=== PATIENT | female | born 1970 | race Caucasian/White ===

== ENCOUNTER 2017-07-22 21:37 | Emergency (ER) | payer OTHER ==
[2017-07-22 22:15] VITALS: BP 120/88
[2017-07-22] MEDS ORDERED: Sodium Chloride 0.9% 10 ML Syringe FLUSH PRN (22:50)
--- NOTE | 2017-07-22 22:53 | EDM.PDOC ---
ED HPI GENERAL MEDICAL PROBLEM - General Chief Complaint: Gastrointestinal Problem Stated Complaint: BLOATING / ABDOMINAL PAIN Time Seen by Provider: 07/22/17 22:32 Source of Information: Reports: Patient, Family, RN Notes Reviewed History Limitations: Reports: No Limitations - History of Present Illness INITIAL COMMENTS - FREE TEXT/NARRATIVE: 46-year-old female known history of gastric bypass presents emergency department today with abdominal distention, she states over the last 2 weeks she 's been progressively more distended she recently had a colonoscopy 2 weeks ago , not much for nausea not much for pain just discomfort, states she still having regular bowel movements and passing gas Left Upper Abdomen Pain Score (Numeric/FACES): 4 - Related Data Allergies Allergy/AdvReac Type Severity Reaction Status Date / Time tioconazole [From Monistat 1] Allergy Rash Verified 10/21/14 09:41 hydromorphone HCl AdvReac Nausea Verified 10/21/14 09:41 [From Dilaudid] Home Meds: Home Meds Docusate Sodium [Colace] 1 tab PO BID 04/25/13 [History] Sennosides [Senna] 4 tab PO BID 04/25/13 [History] Vitamin B Complex [B Complex] 1 each PO BID 04/25/13 [History] Bisacodyl [Dulcolax] 3 tab PO BEDTIME 01/25/14 [History] Cholecalciferol (Vitamin D3) [Vitamin D3] 5,000 unit PO DAILY 01/25/14 [History] Cyanocobalamin (Vitamin B-12) [B-12] 2,500 mcg SL BID 01/25/14 [History] Gabapentin [Neurontin] 600 mg PO BID 01/25/14 [History] Multivitamin [Chewable Multi Vitamin] 2 tab CHEW DAILY 10/21/14 [History] Citalopram [Citalopram HBr] 20 mg PO DAILY 07/22/17 [History] Levocetirizine Dihydrochloride 5 mg PO DAILY 07/22/17 [History] Montelukast Sodium 10 mg PO DAILY 07/22/17 [History] Norethindrone-Ethinyl Estrad [Nortrel 1-35 28 Tablet] 07/22/17 [History] Norethindrone-Ethinyl Estrad [Nortrel 1-35 28 Tablet] 07/22/17 [History] Norethindrone-Ethinyl Estrad [Nortrel 1-35 28 Tablet] 07/22/17 [History] Norethindrone-Ethinyl Estrad [Nortrel 1-35 28 Tablet] PO DAILY 07/22/17 [History ] Past Medical History Gastrointestinal History: Reports: Bowel Obstruction [employer] IN[employer] History: Reports: Musculoskeletal History: Reports: Osteoarthritis Other Musculoskeletal History: arthritis in shoulders - Past Surgical History GI Surgical History: Reports: Bariatric Procedure, Cholecystectomy, Colonoscopy , Hernia Repair/Other, Lysis of Adhesions, Small Bowel Female Surgical History: Reports: Section Musculoskeletal Surgical History: Reports: Shoulder Surgery, Other (See Below) Other Musculoskeletal Surgeries/Procedures:: shoulder bone spurs Social & Family History - Tobacco Use Smoking Status *Q: Former Smoker Used Tobacco, but Quit: Yes Month/Year Tobacco Last Used: 7 years - Caffeine Use Caffeine Use: Reports: Coffee - Recreational Drug Use Recreational Drug Use: No ED ROS GENERAL - Review of Systems Review Of Systems: See Below Constitutional: Denies: Fever, Chills HEENT: Reports: No Symptoms Respiratory: Reports: No Symptoms Cardiovascular: Reports: No Symptoms GI/Abdominal: Reports: Abdominal Pain, Distension, Flatus. Denies: Diarrhea, Nausea, Vomiting : Reports: No Symptoms Musculoskeletal: Reports: No Symptoms Skin: Reports: No Symptoms Neurological: Reports: No Symptoms ED EXAM, GI/ABD - Physical Exam Exam: See Below Exam Limited By: No Limitations General Appearance: Alert, WD/WN, No Apparent Distress Ears: Other (Right tympanic membrane erythematous loss of landmarks and light reflex) Neck: Normal Inspection, Supple, Non-Tender, Full Range of Motion Respiratory/Chest: No Respiratory Distress, Lungs Clear, Normal Breath Sounds, No Accessory Muscle Use Cardiovascular: Regular Rate, Rhythm, No Murmur GI/Abdominal Exam: Normal Bowel Sounds, Soft, Distended Course - Vital Signs Last Recorded V/S: Last Vital Signs Temp 98.1 F 07/22/17 22:14 Pulse 88 07/22/17 22:14 Resp 14 07/22/17 22:14 BP 120/88 07/22/17 22:14 Pulse Ox 99 07/22/17 22:14 - Orders/Labs/Meds Orders: Active Orders 24 hr Category Date Time Status Peripheral IV Care [RC] . DIRECTED Care 07/22/17 22:50 Active Abdomen Pelvis w Cont [CT] Urgent Exams 07/22/17 22:50 Taken HCG QUALITATIVE,URINE [URCHEM] Routine Lab 07/22/17 23:04 Ordered UA W/MICROSCOPIC [URIN] Urgent Lab 07/22/17 23:04 Ordered Lactated Ringers [Ringers, Lactated] 1,000 ml Med 07/22/17 23:00 Active IV ASDIRECTED Sodium Chloride 0.9% [Saline Flush] Med 07/22/17 22:50 Active 10 ml FLUSH ASDIRECTED PRN Peripheral IV Insertion Adult [OM.PC] Urgent Oth 07/22/17 22:50 Ordered Medication Orders Lactated Ringer's (Ringers, Lactated) 1,000 mls @ 500 mls/hr IV ASDIRECTED NAVA Last Admin: 07/22/17 23:04 Dose: 500 mls/hr Sodium Chloride (Saline Flush) 10 ml FLUSH ASDIRECTED PRN PRN Reason: Keep Vein Open Last Admin: 07/22/17 23:05 Dose: 10 ml Labs: Laboratory Tests 07/22/17 07/22/17 07/22/17 Range/Units 23:03 23:03 23:03 WBC 10.3 (4.5-11.0) K/uL RBC 4.45 (3.30-5.50) M/uL Hgb 12.4 (12.0-15.0) g/dL Hct 37.6 (36.0-48.0) % MCV 85 (80-98) fL MCH 28 (27-31) pg MCHC 33 (32-36) % Plt Count 299 (150-400) K/uL Neut % (Auto) 67 H (36-66) % Lymph % (Auto) 24 (24-44) % Page % (Auto) 6 (2-6) % Eos % (Auto) 3 (2-4) % Baso % (Auto) 0 (0-1) % Sodium 143 (140-148) mmol/L Potassium 3.4 L (3.6-5.2) mmol/L Chloride 108 (100-108) mmol/L Carbon Dioxide 26 (21-32) mmol/L Anion Gap 12.4 (5.0-14.0) mmol/L BUN 9 D (7-18) mg/dL Creatinine 0.7 (0.6-1.0) mg/dL Est Cr Clr Drug Dosing 92.29 mL/min Estimated GFR (MDRD) > 60 (>60) Glucose 82 (74-106) mg/dL Lactic Acid 0.8 (0.4-2.0) mmol/L Calcium 8.0 L (8.5-10.1) mg/dL Total Bilirubin 0.2 (0.2-1.0) mg/dL AST 16 (15-37) U/L ALT 31 (12-78) U/L Alkaline Phosphatase 77 (46-116) U/L Total Protein 6.0 L (6.4-8.2) g/dL Albumin 3.2 L (3.4-5.0) g/dL Globulin 2.8 (2.3-3.5) g/dL Albumin/Globulin Ratio 1.1 L (1.2-2.2) Lipase 134 (73-393) U/L Urine Color Urine Appearance Urine pH (4.5-8.0) Ur Specific [place] (1.008-1.030) Urine Protein (NEGATIVE) mg/dL Urine Glucose (UA) (NEGATIVE) mg/dL Urine Ketones (NEGATIVE) mg/dL Urine Occult Blood (NEGATIVE) Urine Nitrite (NEGATIVE) Urine Bilirubin (NEGATIVE) Urine Urobilinogen (NORMAL) mg/dL Ur Leukocyte Esterase (NEGATIVE) Urine RBC (0-5) Urine WBC (0-5) Ur Epithelial Cells Amorphous Sediment Urine Bacteria Urine Mucus Urine Other Urine HCG, Qual 07/22/17 07/22/17 Range/Units 23:04 23:04 WBC (4.5-11.0) K/uL RBC (3.30-5.50) M/uL Hgb (12.0-15.0) g/dL Hct (36.0-48.0) % MCV (80-98) fL MCH (27-31) pg MCHC (32-36) % Plt Count (150-400) K/uL Neut % (Auto) (36-66) % Lymph % (Auto) (24-44) % Page % (Auto) (2-6) % Eos % (Auto) (2-4) % Baso % (Auto) (0-1) % Sodium (140-148) mmol/L Potassium (3.6-5.2) mmol/L Chloride (100-108) mmol/L Carbon Dioxide (21-32) mmol/L Anion Gap (5.0-14.0) mmol/L BUN (7-18) mg/dL Creatinine (0.6-1.0) mg/dL Est Cr Clr Drug Dosing mL/min Estimated GFR (MDRD) (>60) Glucose (74-106) mg/dL Lactic Acid (0.4-2.0) mmol/L Calcium (8.5-10.1) mg/dL Total Bilirubin (0.2-1.0) mg/dL AST (15-37) U/L ALT (12-78) U/L Alkaline Phosphatase (46-116) U/L Total Protein (6.4-8.2) g/dL Albumin (3.4-5.0) g/dL Globulin (2.3-3.5) g/dL Albumin/Globulin Ratio (1.2-2.2) Lipase (73-393) U/L Urine Color Yellow Urine Appearance Clear Urine pH 6.0 (4.5-8.0) Ur Specific [place] 1.020 (1.008-1.030) Urine Protein Negative (NEGATIVE) mg/dL Urine Glucose (UA) Normal (NEGATIVE) mg/dL Urine Ketones Negative (NEGATIVE) mg/dL Urine Occult Blood Negative (NEGATIVE) Urine Nitrite Negative (NEGATIVE) Urine Bilirubin Negative (NEGATIVE) Urine Urobilinogen Normal (NORMAL) mg/dL Ur Leukocyte Esterase Negative (NEGATIVE) Urine RBC 0-5 (0-5) Urine WBC 0-5 (0-5) Ur Epithelial Cells Few Amorphous Sediment Not seen Urine Bacteria Few Urine Mucus Not seen Urine Other Urine HCG, Qual Negative Meds: Medications Generic Name Dose Route Start Last Admin Trade Name Freq PRN Reason Stop Dose Admin Lactated Ringer's 1,000 mls @ 500 mls/hr 07/22/17 23:00 07/22/17 23:04 Ringers, Lactated IV 500 mls/hr ASDIRECTED NAVA Administration Sodium Chloride 10 ml 07/22/17 22:50 07/22/17 23:05 Saline Flush FLUSH 10 ml ASDIRECTED PRN Administration Keep Vein Open Discontinued Medications Generic Name Dose Route Start Last Admin Trade Name Freq PRN Reason Stop Dose Admin Fentanyl 50 mcg 07/22/17 23:19 07/22/17 23:28 Sublimaze IVPUSH 07/22/17 23:20 50 mcg ONETIME ONE Administration Sodium Chloride 74 mls @ 3.4 mls/sec 07/22/17 22:59 07/22/17 23:35 Normal Saline IV 07/22/17 23:00 3.4 mls/sec ASDIRECTED STA Administration Iopamidol 100 ml 07/22/17 22:59 07/22/17 23:35 Isovue-300 (61%) IV 07/22/17 23:00 100 ml . DIRECTED STA Administration Departure - Departure Time of Disposition: 00:38 Disposition: Home, Self-Care 01 Condition: Good Clinical Impression: Functional constipation Left otitis media Qualifiers: Otitis media type: suppurative Chronicity: acute Recurrence: not specified as recurrent Spontaneous tympanic membrane rupture: without spontaneous rupture Qualified Code(s): H66.002 - Acute suppurative otitis media without spontaneous rupture of ear drum, left ear - Discharge Information Referrals: PCP,None [Primary Care Provider] - Forms: ED Department Discharge Additional Instructions: Take full course of antibiotics, try the MiraLAX prep for a cleanout for constipation, Please followup with your primary care provider in 5-7 days if not better, please call return to the emergency department with worsening of symptoms. - My Orders Last 24 Hours: My Active Orders 07/22/17 22:50 Peripheral IV Care [RC] . DIRECTED Abdomen Pelvis w Cont [CT] Urgent Sodium Chloride 0.9% [Saline Flush] 10 ml FLUSH ASDIRECTED PRN Peripheral IV Insertion Adult [OM.PC] Urgent 07/22/17 23:00 Lactated Ringers [Ringers, Lactated] 1,000 ml IV ASDIRECTED 07/22/17 23:04 HCG QUALITATIVE,URINE [URCHEM] Routine UA W/MICROSCOPIC [URIN] Urgent - Assessment/Plan Last 24 Hours: My Active Orders 07/22/17 22:50 Peripheral IV Care [RC] . DIRECTED Abdomen Pelvis w Cont [CT] Urgent Sodium Chloride 0.9% [Saline Flush] 10 ml FLUSH ASDIRECTED PRN Peripheral IV Insertion Adult [OM.PC] Urgent 07/22/17 23:00 Lactated Ringers [Ringers, Lactated] 1,000 ml IV ASDIRECTED 07/22/17 23:04 HCG QUALITATIVE,URINE [URCHEM] Routine UA W/MICROSCOPIC [URIN] Urgent Plan: Assessment Acuity = acute Site and laterality = functional constipation with left otitis media complicated patient with history of gastric bypass surgery Etiology = slow transit time and probable bacterial cause for the otitis media Manifestations = otalgia, abdominal distention Location of injury = Home Lab values = CBC, CMP, urinalysis unremarkable CT scan shows moderate amount of stool Plan Placed on amoxicillin 500 mg by mouth 3 times a day 7 days follow-up with primary care in 5-7 days if not better, for the constipation handout on colonoscopy prep with MiraLAX was provided This note was dictated using [employer] voice recognition software please call with any questions on syntax or grammar.
[2017-07-22] MEDS ORDERED: Iopamidol 612 MG/ML 100 ML Bottle IV STA (22:59)
[2017-07-22] MEDS ORDERED: Lactated Ringers 1,000 ML IV SCH (23:00)
[2017-07-22] MEDS ORDERED: fentaNYL 100 MCG/2 ML SDV IVPUSH ONE (23:19)
== END 2017-07-23 00:50 | disposition home or self-care (01) ==
LOC: JP.ED 21:37
DX: K59.04 Chronic idiopathic constipation (principal); H66.002 Acute suppurative otitis media without spontaneous rupture of ear drum, left ear; Z88.8 Allergy status to other drugs, medicaments and biological substances; Z79.899 Other long term (current) drug therapy; Z87.891 Personal history of nicotine dependence
CPT/HCPCS: 36415; 74177; 80053; 81001; 81025; 83605; 83690; 85025; 96361; 96374; 99284; J3010; J7030; J7050; J7120; Q9967

== ENCOUNTER 2017-07-23 14:08 | Inpatient (IN) | payer OTHER ==
[2017-07-23] MEDS ORDERED: Ondansetron 4 MG Tab.DIS PO ONE (14:52)
[2017-07-23] MEDS ORDERED: Acetaminophen 325 MG Tab PO PRN (16:11)
[2017-07-23] MEDS ORDERED: Acetaminophen 650 MG Supp RECTAL PRN (16:11)
--- NOTE | 2017-07-23 17:31 | PCM.HP ---
H&P History of Present Illness - General Date of Service: 07/23/17 Admit Problem/Dx: Admission Diagnosis/Problem Admission Diagnosis/Problem Partial bowel obstruction Source of Information: Patient History Limitations: Reports: No Limitations - History of Present Illness Initial Comments - Free Text/Narative: Geovanni states that she last had a BM 8 days ago. She is having an increase in abdominal pain and bloating. Pain is worst after eating. She went to the ED last night and CT Scan was negative. Onset of Symptoms: Reports: Gradual Duration of Symptoms: Reports: Week(s): (1) Quality: Reports: Ache, Pressure, Throbbing Improves with: Reports: None Worsens with: Reports: Eating Context: Reports: Sick Contact Abdomen Pain Score (Numeric/FACES): 5 - Related Data Allergies/Adverse Reactions: Allergies Allergy/AdvReac Type Severity Reaction Status Date / Time tioconazole [From Monistat 1] Allergy Rash Verified 10/21/14 09:41 hydromorphone HCl AdvReac Nausea Verified 10/21/14 09:41 [From Dilaudid] Home Medications: Home Meds Docusate Sodium [Colace] 1 tab PO BID 04/25/13 [History] Sennosides [Senna] 4 tab PO BID 04/25/13 [History] Vitamin B Complex [B Complex] 1 each PO BID 04/25/13 [History] Bisacodyl [Dulcolax] 3 tab PO BEDTIME 01/25/14 [History] Cholecalciferol (Vitamin D3) [Vitamin D3] 5,000 unit PO DAILY 01/25/14 [History] Cyanocobalamin (Vitamin B-12) [B-12] 2,500 mcg SL BID 01/25/14 [History] Gabapentin [Neurontin] 600 mg PO BID 01/25/14 [History] Multivitamin [Chewable Multi Vitamin] 2 tab CHEW DAILY 10/21/14 [History] Citalopram [Citalopram HBr] 20 mg PO DAILY 07/22/17 [History] Levocetirizine Dihydrochloride 5 mg PO DAILY 07/22/17 [History] Montelukast Sodium 10 mg PO DAILY 07/22/17 [History] Norethindrone-Ethinyl Estrad [Nortrel 1-35 28 Tablet] 07/22/17 [History] Norethindrone-Ethinyl Estrad [Nortrel 1-35 28 Tablet] 07/22/17 [History] Norethindrone-Ethinyl Estrad [Nortrel 1-35 28 Tablet] 07/22/17 [History] Norethindrone-Ethinyl Estrad [Nortrel 1-35 28 Tablet] PO DAILY 07/22/17 [History ] Past Medical History Gastrointestinal History: Reports: Bowel 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: Musculoskeletal History: Reports: Osteoarthritis Other Musculoskeletal History: arthritis in shoulders - Past Surgical History GI Surgical History: Reports: Bariatric Procedure, Cholecystectomy, Colonoscopy , Hernia Repair/Other, Lysis of Adhesions, Small Bowel Female Surgical History: Reports: Section Musculoskeletal Surgical History: Reports: Shoulder Surgery, Other (See Below) Other Musculoskeletal Surgeries/Procedures:: shoulder bone spurs Social & Family History - Tobacco Use Smoking Status *Q: Former Smoker Years of Tobacco use: 20 Packs/Tins Daily: 0.5 Used Tobacco, but Quit: No Second Hand Smoke Exposure: No - Caffeine Use Caffeine Use: Reports: Coffee - Recreational Drug Use Recreational Drug Use: No H&P Review of Systems - Review of Systems: Review Of Systems: See Below General: Reports: No Symptoms HEENT: Reports: No Symptoms Pulmonary: Reports: No Symptoms Cardiovascular: Reports: No Symptoms Gastrointestinal: Reports: Abdominal Pain, Constipation, Distension, Nausea Genitourinary: Reports: No Symptoms Musculoskeletal: Reports: No Symptoms Skin: Reports: No Symptoms Psychiatric: Reports: No Symptoms Neurological: Reports: No Symptoms Hematologic/Lymphatic: Reports: No Symptoms Immunologic: Reports: No Symptoms Exam - Exam Exam: See Below - Vital Signs Vital Signs: Last Vital Signs Temp 98.2 F 07/23/17 14:16 Pulse 78 07/23/17 14:16 Resp 16 07/23/17 14:16 BP 119/65 07/23/17 14:16 Pulse Ox Weight: 158 lb 8 oz - Exam Quality Assessment: DVT Prophylaxis General: Alert, Oriented, Moderate Distress HEENT: PERRLA Neck: Supple, Trachea Midline Lungs: Clear to Auscultation, Normal Respiratory Effort Cardiovascular: Regular Rate, Regular Rhythm GI/Abdominal Exam: Soft, Distended, Tender (Female) Exam: Deferred Rectal (Female) Exam: Deferred Back Exam: Normal Inspection, Full Range of Motion Extremities: Normal Inspection, Normal Range of Motion Skin: Warm, Dry, Intact Neurological: Cranial Nerves Intact, Reflexes Equal Bilateral Neuro Extensive - Mental Status: Alert, Oriented x3, Normal Mood/Affect Neuro Extensive - Motor, Sensory, Reflexes: CN II-XII Intact, Normal Reflexes Psychiatric: Alert, Normal Affect, Normal Mood - Problem List (1) Partial small bowel obstruction SNOMED Code(s): 427668522 ICD Code: K56.600 - PARTIAL INTESTINAL OBSTRUCTION, UNSPECIFIED TO CAUSE Status: Acute Current Visit: Yes (2) Functional constipation SNOMED Code(s): 517656887 ICD Code: K59.04 - CHRONIC IDIOPATHIC CONSTIPATION Status: Acute Current Visit: No Problem List Initiated/Reviewed/Updated: Yes Orders Last 24hrs: Active Orders 24 hr Category Date Time Status Admission Status [Patient Status] [ADT] Routine ADT 07/23/17 15:30 Active Enema [RC] ASDIRECTED Care 07/23/17 14:17 Inactive Up ad Gisselle [RC] ASDIRECTED Care 07/23/17 17:14 Active Vital Signs [RC] Q4H Care 07/23/17 17:19 Active Clear Liquid Diet [DIET] Diet 07/23/17 Dinner Active NPO After Midnight [Nothing per Oral After Midnight Diet 07/23/17 Dinner Ordered Diet] [DIET] UGI w Small Bowel wo Air [CR] Routine Exams 07/24/17 09:00 Ordered CBC W/O DIFF,HEMOGRAM [HEME] Routine Lab 07/24/17 04:00 Ordered COMPREHENSIVE METABOLIC PN,CMP [CHEM] Routine Lab 07/24/17 04:00 Ordered FERRITIN [CHEM] Routine Lab 07/24/17 04:00 Ordered MAGNESIUM [CHEM] Routine Lab 07/24/17 04:00 Ordered PHOSPHORUS [CHEM] Routine Lab 07/24/17 04:00 Ordered Acetaminophen [Tylenol] Med 07/23/17 16:11 Active 650 mg PO Q4H PRN Acetaminophen [Tylenol] Med 07/23/17 16:11 Active 650 mg RECTAL Q4H PRN Dextrose 5%-Lactated Ringers 1,000 ml Med 07/23/17 16:15 Active IV ASDIRECTED MVI, Adult with Vitamin K [Infuvite Adult] 10 ml Med 07/23/17 17:30 Ordered Thiamine [Vitamin B-1] 100 mg Magnesium Sulfate [Magnesium Sulfate 50%] 2 gm Folic Acid 1 mg Lactated Ringers [Ringers, Lactated] 1,000 ml IV ONETIME Metoclopramide [Reglan] Med 07/23/17 17:30 Ordered 10 mg IV Q6H Ondansetron [Zofran] Med 07/23/17 16:16 Active 4 mg IVPUSH Q4H PRN Pantoprazole [ProTONIX IV] Med 07/23/17 17:00 Active 40 mg IV Q24H hydrOXYzine HCl [Vistaril] Med 07/23/17 17:21 Ordered 50 - 100 mg IM Q4H PRN SCD [Sequential Compression Device] [OM.PC] Routine Oth 07/23/17 17:21 Ordered Code Status [Resuscitation Status] Routine Resus Stat 07/23/17 17:12 Ordered Medication Orders Acetaminophen (Tylenol) 650 mg PO Q4H PRN PRN Reason: PAIN/FEVER Acetaminophen (Tylenol) 650 mg RECTAL Q4H PRN PRN Reason: PAIN/FEVER Hydroxyzine HCl (Vistaril) 50 - 100 mg IM Q4H PRN PRN Reason: Pain Dextrose/Lactated Ringer's (Dextrose 5%-Lactated Ringers) 1,000 mls @ 150 mls/ hr IV ASDIRECTED NAVA Multivitamins/Minerals 10 ml/Thiamine HCl 100 mg/ Magnesium Sulfate 2 gm/ Folic Acid 1 mg / Lactated Ringer's 1,015.2 mls @ 200 mls/hr IV ONETIME NAVA Stop: 07/23/17 22:35 Metoclopramide HCl (Reglan) 10 mg IV Q6H NAVA Ondansetron HCl (Zofran) 4 mg IVPUSH Q4H PRN PRN Reason: NAUSEA Pantoprazole Sodium (Protonix Iv) 40 mg IV Q24H [facility] Assessment/Plan Comment:: See copy of orders Sarah Gagnon 07/23/16 Admit to Inpatient for hospital stay of 2 nights and 3 days
[2017-07-23] MEDS ORDERED: MVI, Adult with Vitamin K 10 ML, Thiamine 100 MG, Magnesium Sulfate 2 GM, Folic Acid 1 ... IV ONE ×5 (18:00)
[2017-07-23] MEDS: Pantoprazole 40 MG Vial IV SCH (18:03)
[2017-07-23] MEDS: Metoclopramide 10 MG/2 ML SDV IV SCH (18:03)
[2017-07-23] MEDS: hydrOXYzine HCl 100 MG/2 ML SDV IM PRN (22:11)
[2017-07-23] MEDS: Dextrose 5%-Lactated Ringers 1,000 ML IV SCH (23:15)
[2017-07-24] MEDS: Metoclopramide 10 MG/2 ML SDV IV SCH ×4 (00:03→17:01)
[2017-07-24] MEDS: Dextrose 5%-Lactated Ringers 1,000 ML IV SCH ×3 (06:04→21:15)
[2017-07-24] MEDS ORDERED: Iohexol 647 MG/ML 50 ML SDV PO ONE ×2 (08:57→09:29)
--- NOTE | 2017-07-24 08:59 | PN ---
DATE OF SERVICE: 07/24/2017 SUBJECTIVE: Geovanni was admitted yesterday for abdominal distention and pain. Pain is a 5/10. She has had no bowel movement or has not passed any flatus. She is scheduled for an upper GI with small-bowel follow-through using water-soluble contrast this morning. REVIEW OF SYSTEMS: CONSTITUTIONAL: No fever, chills, night sweats, or fatigue. HEENT: Negative. NECK: Negative. HEART: No chest pain or shortness of breath. LUNGS: She does have a cough from upper respiratory infection. ABDOMEN: As above. : Negative. EXTREMITIES: Negative. NEURO: Negative for headache, dizziness, or loss of coordination. PSYCHIATRIC: Negative for depression or anxiety. Remainder of review of systems negative for any pertinent positives and negatives. OBJECTIVE: GENERAL: Geovanni Zaragoza is a 46-year-old female. Alert and orientated. VITAL SIGNS: TPR 98.4, 64, 18, and blood pressure 120/64. HEENT: Negative. NECK: Supple. HEART: Regular rate and rhythm. LUNGS: Clear. ABDOMEN: Remains to be distended. Tenderness in all 4 quadrants. EXTREMITIES: Without peripheral edema. NEURO: Intact. ASSESSMENT: Partial small bowel obstruction. PLAN: 1. Page Preston Russ MD, after upper GI with water-soluble contrast is completed. 2. We will evaluate p.r.n. or in a.m. Sarah Bailey PA-C /[id number]
[2017-07-24] MEDS: Amoxicillin 500 MG Cap PO SCH ×4 (11:18→21:16)
--- NOTE | 2017-07-24 11:49 | CR ---
UGI w Small Bowel wo Air INDICATION: partial small bowel obstruction COMPARISON: CT 07/22/2017 FINDINGS: Upper GI and small bowel series performed using water-soluble contrast. Patient status pos t gastric bypass procedure. Contrast reaches the cecum in 15 minutes. No abnormal dilatation. Small b owel mucosal fold pattern unremarkable. No evidence of wall thickening or bowel loop separation. Exam was continued through 2 hours to ensure additional passage of contrast into the colon, which was obs erved to the transverse colon. Amorphus contrast in the left upper quadrant likely reflux into the ex cluded stomach, which is fluid-filled and somewhat distended on CT 07/22/2017. IMPRESSION: No signs of small bowel obstruction. Probable reflux into excluded stomach. Discussed with Dr. Russ.
[2017-07-24] MEDS: Pantoprazole 40 MG Vial IV SCH (17:00)
[2017-07-24] MEDS: Dicyclomine 10 MG Cap PO SCH ×2 (17:00→21:15)
[2017-07-24] MEDS: Bisacodyl 10 MG Supp RECTAL SCH (21:16)
[2017-07-25] MEDS: Metoclopramide 10 MG/2 ML SDV IV SCH ×4 (00:37→18:44)
[2017-07-25] MEDS: Dextrose 5%-Lactated Ringers 1,000 ML IV SCH ×3 (04:13→18:54)
[2017-07-25] MEDS ORDERED: Acetaminophen 500 MG Tab PO ONE (06:45)
[2017-07-25] MEDS ORDERED: Gabapentin 300 MG Cap PO ONE (06:45)
[2017-07-25] MEDS ORDERED: Celecoxib 200 MG Cap PO ONE (06:45)
[2017-07-25] MEDS ORDERED: Naloxone 0.4 MG/ML SDV IV PRN (07:31)
[2017-07-25] MEDS: Dicyclomine 10 MG Cap PO SCH ×4 (08:16→19:41)
[2017-07-25] MEDS: Amoxicillin 500 MG Cap PO SCH ×3 (09:26→21:44)
[2017-07-25] MEDS: Bisacodyl 10 MG Supp RECTAL SCH ×2 (09:31→21:44)
[2017-07-25] MEDS ORDERED: Ketamine 500 MG/5 ML MDV IV SCH (11:00)
[2017-07-25] MEDS ORDERED: cefOXitin 2 GM in Sodium Chloride 0.9% 50 ML IV ONE (11:00)
[2017-07-25] MEDS ORDERED: Lidocaine 0.4%/D5W 2 GM/500 ML BAG IV SCH (11:00)
[2017-07-25] MEDS ORDERED: Lidocaine 2% 100 MG/5 ML Syringe IVPUSH ONE (11:00)
[2017-07-25] MEDS ORDERED: Ropivacaine 35 ML, Dexamethasone 8 MG, EPINEPHrine 0.4 MG, Sodium Chloride 0.9% 42.6 ML NERVRT SCH ×4 (11:00)
[2017-07-25] MEDS ORDERED: Meropenem 500 MG SDV ONE (12:07)
[2017-07-25] MEDS ORDERED: Bupivacaine 0.5%/EPINEPHrine 1:200,000 50 ML MDV ONE (12:07)
[2017-07-25] MEDS ORDERED: Midazolam 1 MG/ML 2 ML SDV ONE (13:09)
[2017-07-25] MEDS ORDERED: fentaNYL 250 MCG/5 ML SDV ONE (13:09)
[2017-07-25] MEDS ORDERED: Dexamethasone 4 MG/ML SDV ONE (13:10)
[2017-07-25] MEDS ORDERED: Propofol 200 MG/20 ML SDV ONE (13:10)
[2017-07-25] MEDS ORDERED: Neostigmine Methylsulfate 1 MG/ML 5 ML Syringe ONE (13:10)
[2017-07-25] MEDS ORDERED: Succinylcholine 200 MG/10 ML MDV ONE (13:10)
[2017-07-25] MEDS ORDERED: Glycopyrrolate 0.2 MG/ML 5 ML MDV ONE (13:10)
[2017-07-25] MEDS ORDERED: Ondansetron 4 MG/2 ML SDV ONE (13:10)
[2017-07-25] MEDS ORDERED: Rocuronium 50 MG/5 ML Vial ONE (13:10)
--- NOTE | 2017-07-25 13:24 | PN ---
DATE OF SERVICE: 07/25/2017 SUBJECTIVE: Geovanni is n.p.o. She will be having surgery. Case to follow later today. She remains to have pain on a pain scale of 1-10, 5/10. Vital signs have been stable. REVIEW OF SYSTEMS: Remainder of review of systems negative for any pertinent positives and negatives. OBJECTIVE: GENERAL: Geovanni Zaragoza is a 46-year-old female. She is alert and orientated, color pale. VITAL SIGNS: TPR 97.8, 66, 16, blood pressure 99/57. HEENT: Negative. NECK: Supple. HEART: Regular rate and rhythm. LUNGS: Clear. ABDOMEN: Remains to have marked distention. It is soft, generalized tenderness. EXTREMITIES: Without peripheral edema. SCDs have been on. ASSESSMENT: Partial small bowel obstruction. PLAN: 1. Orders to be written postoperatively. 2. Rx Amitiza 24 mcg b.i.d. will be ordered to start after OR. Sarah Bailey PA-C /[id number]
[2017-07-25] MEDS ORDERED: Lactated Ringers 1,000 ML ONE (15:23)
[2017-07-25] MEDS: Morphine PF 150 MG/30 ML PCA Syringe IV PRN (15:34)
[2017-07-25] MEDS ORDERED: Lubiprostone 24 MCG Cap PO SCH (17:00)
[2017-07-25] MEDS ORDERED: Scopolamine 1.5 MG Transdermal Patch ONE (17:54)
[2017-07-25] MEDS: Pantoprazole 40 MG Vial IV SCH (18:10)
[2017-07-25] MEDS ORDERED: diphenhydrAMINE 50 MG/ML SDV IVPUSH PRN (18:42)
[2017-07-25] MEDS ORDERED: Labetalol 20 MG/4 ML Syringe IVPUSH PRN (18:46)
[2017-07-25] MEDS: cefOXitin 2 GM in Sodium Chloride 0.9% 50 ML IV SCH (19:39)
[2017-07-25] MEDS ORDERED: Gabapentin 250 MG/5 ML Solution ML 470 ML Bottle PO SCH (21:00)
[2017-07-25] MEDS: Ondansetron 4 MG/2 ML SDV IVPUSH PRN (22:27)
[2017-07-25] MEDS: hydrOXYzine HCl 100 MG/2 ML SDV IM PRN (22:37)
[2017-07-25] MEDS ORDERED: Acetaminophen Soln 650 MG/20.3 ML UD Cup PO PRN (22:40)
[2017-07-25] MEDS: Montelukast 10 MG Tab PO SCH (22:46)
[2017-07-26] MEDS: Metoclopramide 10 MG/2 ML SDV IV SCH ×2 (00:18→06:08)
[2017-07-26] MEDS: cefOXitin 2 GM in Sodium Chloride 0.9% 50 ML IV SCH ×4 (00:23→19:22)
[2017-07-26] MEDS: Dextrose 5%-Lactated Ringers 1,000 ML IV SCH ×2 (00:29→07:22)
[2017-07-26] MEDS ORDERED: Iohexol 647 MG/ML 50 ML SDV PO PRN (01:02)
[2017-07-26] MEDS ORDERED: hydrOXYzine HCl 100 MG/2 ML SDV IM PRN (07:08)
[2017-07-26] MEDS: Ondansetron 4 MG/2 ML SDV IVPUSH PRN (07:22)
[2017-07-26] MEDS ORDERED: Albuterol/Ipratropium 3.0-0.5 MG/3 ML Neb Soln INH PRN (08:00)
[2017-07-26] MEDS: Celecoxib 200 MG Cap PO SCH (08:54)
[2017-07-26] MEDS: Acetaminophen Soln 650 MG/20.3 ML UD Cup PO SCH ×2 (08:55→13:40)
[2017-07-26] MEDS: Lubiprostone 24 MCG Cap PO SCH ×2 (08:56→16:00)
[2017-07-26] MEDS: SCOPOLAMINE PATCH CHECK TOP SCH (08:57)
[2017-07-26] MEDS ORDERED: Gabapentin 250 MG/5 ML Solution ML 470 ML Bottle PO SCH (09:00)
[2017-07-26] MEDS: Albuterol/Ipratropium 3.0-0.5 MG/3 ML Neb Soln INH SCH ×4 (09:53→21:33)
[2017-07-26] MEDS: Citalopram 20 MG Tab PO SCH (10:19)
[2017-07-26] MEDS: Gabapentin 300 MG Cap PO SCH ×2 (10:19→21:31)
[2017-07-26] MEDS: Magnesium Sulfate/Water 2 GM in Premix Bag 1 BAG IV SCH ×3 (10:20→21:32)
[2017-07-26] MEDS: MVI, Adult with Vitamin K 10 ML, Thiamine 100 MG, Chromium/Copper/Mang/Selen/Zn 1 ML in... IV SCH ×4 (15:53)
[2017-07-26] MEDS: Pantoprazole 40 MG Vial IV SCH (16:00)
[2017-07-26] MEDS ORDERED: MVI, Adult with Vitamin K 10 ML, Thiamine 100 MG, Chromium/Copper/Mang/Selen/Zn 1 ML in... IV SCH ×4 (16:00)
[2017-07-26] MEDS: Acetaminophen 325 MG Tab PO SCH (21:31)
[2017-07-26] MEDS: Montelukast 10 MG Tab PO SCH (21:31)
[2017-07-27] MEDS: Acetaminophen 325 MG Tab PO SCH ×4 (02:24→20:35)
[2017-07-27] MEDS: cefOXitin 2 GM in Sodium Chloride 0.9% 50 ML IV SCH ×3 (02:24→13:37)
[2017-07-27] MEDS: Ondansetron 4 MG/2 ML SDV IVPUSH PRN ×2 (02:29→19:50)
[2017-07-27] MEDS: Dextrose 5%-Lactated Ringers 1,000 ML IV SCH ×2 (02:31→09:02)
[2017-07-27] MEDS: Magnesium Sulfate/Water 2 GM in Premix Bag 1 BAG IV SCH ×4 (04:27→23:03)
[2017-07-27] MEDS ORDERED: Meropenem 500 MG SDV ONE (06:52)
[2017-07-27] MEDS ORDERED: Lidocaine 1% with EPINEPHrine 1:100,000 50 ML MDV ONE (06:52)
[2017-07-27] MEDS ORDERED: Bupivacaine 0.5% 50 ML MDV ONE (06:52)
[2017-07-27] MEDS ORDERED: fentaNYL 100 MCG/2 ML SDV ONE (07:19)
[2017-07-27] MEDS ORDERED: Midazolam 1 MG/ML 2 ML SDV ONE (07:19)
[2017-07-27] MEDS ORDERED: Propofol 200 MG/20 ML SDV ONE (07:19)
[2017-07-27] MEDS ORDERED: Ropivacaine 35 ML, Dexamethasone 8 MG, EPINEPHrine 0.4 MG, Sodium Chloride 0.9% 42.6 ML NERVRT SCH ×4 (07:30)
[2017-07-27] MEDS: Albuterol/Ipratropium 3.0-0.5 MG/3 ML Neb Soln INH SCH ×4 (07:57→20:35)
[2017-07-27] MEDS ORDERED: Cyanocobalamin (Vitamin B12) 1,000 MCG/ML SDV IM SCH (09:00)
[2017-07-27] MEDS: Lubiprostone 24 MCG Cap PO SCH ×2 (09:40→16:19)
[2017-07-27] MEDS: Celecoxib 200 MG Cap PO SCH (09:40)
[2017-07-27] MEDS: Citalopram 20 MG Tab PO SCH (09:41)
[2017-07-27] MEDS: Gabapentin 300 MG Cap PO SCH ×2 (09:41→20:35)
[2017-07-27] MEDS: SCOPOLAMINE PATCH CHECK TOP SCH (09:41)
--- NOTE | 2017-07-27 14:00 | PN ---
DATE OF SERVICE: 07/27/2017 The patient has been afebrile with stable vital signs. Oral intake was fairly good yesterday and she will resume that after the delayed primary closure I think we will leave her on the [employer] for today. She is going to receive antibiotics once again at the time of the closure. Otherwise, maximize activity and work with pulmonary toilet. The [place]a catheter will be coming out today. Preston Russ MD /[id number]
--- NOTE | 2017-07-27 16:09 | OR ---
DATE OF PROCEDURE: 07/27/2017 PREOPERATIVE DIAGNOSIS: Open abdominal incision. POSTOPERATIVE DIAGNOSIS: Open abdominal incision. PROCEDURE: Delayed primary closure of open abdominal incision. ANESTHESIA: Local plus IV sedation. INDICATION FOR PROCEDURE: The patient is 48 hours now status post open laparotomy with both open large and small bowel. Given this, incision was felt to be high risk for wound infection if primary closure was undertaken and is to undergo delayed primary closure at this time. Potential risks including bleeding and infection were reviewed, and the patient wishes to proceed. DETAILS OF PROCEDURE: The patient was taken to the operating room, placed in a supine position. IV sedation was administered, after which the operative dressing was taken down and found to be clean. The abdomen was prepped and draped. Bilateral subcostal transverse abdominis plane blocks over the midabdomen were then placed with continuous ultrasound guidance and standard solution had been injected bilaterally. Following this, the incision was anesthetized with 1% lidocaine mixed with Marcaine, and a Gene-Burgos drain was then placed through a stab wound beneath the incision. This was noted to be a 10-Danish round drain. The wound was irrigated with meropenem-containing saline solution. The incision was then closed with 2 layers of 3-0 and 4-0 Vicryl stitch deep and kitty for the skin. The drain was affixed with a 3-0 Vicryl stitch. The patient was taken to the recovery room in satisfactory condition. Preston Russ MD /[id number]
[2017-07-27] MEDS: Pantoprazole 40 MG Vial IV SCH (16:19)
[2017-07-27] MEDS: MVI, Adult with Vitamin K 10 ML, Thiamine 100 MG, Chromium/Copper/Mang/Selen/Zn 1 ML in... IV SCH ×4 (17:31)
[2017-07-27] MEDS: Montelukast 10 MG Tab PO SCH (20:35)
[2017-07-27] MEDS: Metoclopramide 10 MG/2 ML SDV IV PRN (23:03)
[2017-07-28] MEDS: Magnesium Sulfate/Water 2 GM in Premix Bag 1 BAG IV SCH (03:30)
[2017-07-28] MEDS: Dextrose 5%-Lactated Ringers 1,000 ML IV SCH ×2 (03:30→13:39)
[2017-07-28] MEDS: Acetaminophen 325 MG Tab PO SCH ×4 (03:30→20:21)
[2017-07-28] MEDS: Albuterol/Ipratropium 3.0-0.5 MG/3 ML Neb Soln INH SCH ×4 (07:06→22:15)
[2017-07-28] MEDS: Lubiprostone 24 MCG Cap PO SCH ×2 (07:35→16:13)
[2017-07-28] MEDS ORDERED: Polyethylene Glycol 3350 Powder 119 GM Bottle PO ONE ×2 (09:00→20:00)
--- NOTE | 2017-07-28 09:00 | US ---
VL Duplex Lwr Ext Veins Ltd Lt FINDINGS: Duplex imaging was performed from the left common femoral through the popliteal veins. The veins demonstrate complete compressibility without evidence of intraluminal thrombus. There is normal phasic variation of the waveforms with respiration. There is augmented flow with calf compression. IMPRESSION: There is no evidence for left lower extremity deep venous thrombosis.
--- NOTE | 2017-07-28 09:01 | CR ---
Limited upper GI The patient is status post Dashawn-en-Y gastric bypass. There are left upper quadrant drains in place. T here is no extravasation of contrast. The gastric pouch empties readily into a nondilated Dashawn limb. No complications are evident. Impression: 1. Status post Dashawn-en-Y gastric bypass without evidence for complication.
--- NOTE | 2017-07-28 09:03 | CR ---
Chest 1V Frontal FINDINGS: There is a central venous catheter with the tip near the junction of the right atrium and S VC. The heart and vascular structures are normal in appearance. No infiltrates or effusions are demon strated. The skeletal structures are unremarkable. IMPRESSION: 1. Left central venous catheter. 2. No acute findings.
--- NOTE | 2017-07-28 09:46 | PN ---
DATE OF SERVICE: 07/28/2017 SUBJECTIVE: Geovanni is postop day #3. She has not had a bowel movement. She feels somewhat distended. Vital signs otherwise have been stable. OBJECTIVE: GENERAL: Geovanni Zaragoza is a 46-year-old female. She is alert and orientated. Color, pale. VITAL SIGNS: TPR 98, 85, 20, and blood pressure 101/58. HEENT: Negative. NECK: Supple. HEART: Regular rate and rhythm. LUNGS: Clear. ABDOMEN: [place] intact. She does have a midline JAVIER drain. Abdominal binder is on. EXTREMITIES: Without peripheral edema. ASSESSMENT: 1. Delayed primary closure for open abdominal incision on 07/26/2017. 2. Exploratory laparotomy and lysis of adhesions, removal of intraperitoneal mesh, removal of segment of the small bowel adherent to mesh, portal left hepatic lobectomy adherent to mesh, small bowel resection, small bowel stricturoplasty, mid-jejunojejunostomy, rectosigmoid resection with coloproctostomy and placement of Interceed mesh x2 and insertion of left subclavian triple-lumen for limited peripheral venous access, partial small bowel obstruction associated with adhesions, focal stricture at the JJ Dashawn limb junction and small bowel stricture x2, contracted intraperitoneal mesh with adherence of small bowel and liver to mesh, marked dilatation, decompensation in rectosigmoid colon associated with severe chronic constipation. Date of surgery, 07/25/2017. Surgeon, Preston Russ MD. PLAN: 1. MiraLAX 119 grams. The patient cannot tolerate mag citrate. 2. Dressing off, may shower. 3. Communication order for the patient to be taught how to strip, empty, measure, and record JAVIER drain. 4. Repeat MiraLAX at 1800 hours if no results. 5. Dulcolax suppositories b.i.d. until BM. Sarah Bailey PA-C /[id number]
[2017-07-28] MEDS: Bisacodyl 10 MG Supp RECTAL SCH ×2 (10:41→22:16)
[2017-07-28] MEDS: Celecoxib 200 MG Cap PO SCH (10:41)
[2017-07-28] MEDS: SCOPOLAMINE PATCH CHECK TOP SCH (10:42)
[2017-07-28] MEDS: Citalopram 20 MG Tab PO SCH (10:42)
[2017-07-28] MEDS: Gabapentin 300 MG Cap PO SCH ×2 (10:42→22:17)
--- NOTE | 2017-07-28 14:10 | OR ---
DATE OF PROCEDURE: 07/25/2017 PREOPERATIVE DIAGNOSES: 1. Limited peripheral venous access. 2. Partial small bowel obstruction. 3. Severe chronic constipation. POSTOPERATIVE DIAGNOSES: 1. Limited peripheral venous access. 2. Partial small bowel obstruction associated with florid adhesions and focal stricture at jejunojejunostomy-Dashawn limb junction and small bowel strictures x2. 3. Contaminated intraperitoneal mesh with a portion of the mesh adherent to small bowel and another portion of the mesh adherent to the left lobe of the liver. 4. Severe chronic constipation associated with marked dilation/decompensation of rectosigmoid colon. OPERATIVE PROCEDURES: 1. Insertion of left subclavian vein triple-lumen catheter (72874). 2. Exploratory laparotomy with lysis of extensive adhesions and;. a. Removal of intraperitoneal mesh (95366). b. Removal of a segment of small bowel adherent to the mesh (51593). c. Partial left hepatic lobectomy removing portion of liver densely adherent and fused to mesh (67541). d. Small bowel resection (11611). e. Small bowel stricturoplasty at midjejunum (64258). f. Small bowel stricturoplasty at the level of mid-ileum (60531). g. Rectosigmoid resection with coloproctostomy (67866). h. Placement of Interceed mesh x2 to limit recurrent adhesion formation between pelvic and abdominal wall and underlying viscera (48655). ANESTHESIA: General. TELEPHONE INSTALLER: Sarah Bailey PA-C. INDICATION FOR PROCEDURE: A 46-year-old female presenting with marked abdominal distention. CT shows some colonic distention, but this did not appear to explain all of the degree of distention. An upper GI small bowel series was obtained yesterday, which showed normal caliber of the Dashawn limb and common limb, but backflow into the biliopancreatic limb indicative of a probable partial obstruction in the vicinity of the jejunojejunostomy. The plan is to proceed with exploratory laparotomy with lysis of adhesions with small bowel resection as needed. The patient has intraperitoneal mesh. An open GI tract was identified. We would probably need to remove that mesh. The patient also has quite severe chronic constipation and as part of exploration, we will have to see if there is anything that might be correctable or partially correctable in that regard. She also has very limited peripheral venous access and a central line will be placed. Potential risks of the procedure including bleeding, infection, injury to the underlying viscera, recurrence of the obstruction over time, leaks from any GI tract closures, as well as possible pneumohemothorax or vascular injury during the line insertion were all reviewed along with the remote possibility of cardiopulmonary, septic, or hemorrhagic complications leading to , and the patient wishes to proceed. DETAILS OF PROCEDURE: The patient was taken to the operating room and after general endotracheal anesthesia was induced, the upper chest and neck areas were initially prepped and draped. The left subclavian vein was cannulated and a guidewire passed. Over the guidewire, a triple-lumen catheter was positioned. Good in and outflows were noted. The ports were flushed with heparinized saline. The catheter was sutured to the skin with some 3-0 silk stitch. Dressing was applied. A subsequent chest x-ray showed no complications evident with line placement and good catheter position. The abdomen was then prepped and draped. A [place] catheter was inserted. The previous midline incision was then used. This was initially started at roughly handsbreadth below the umbilicus and then continued upward to the level of the xiphoid. The lowermost part of the incision entered freely into the peritoneal cavity and apart from the lower 3 to 4 cm of the incision, the remainder was covered up with a quite contracted firm intraperitoneal mesh. As one dissected further, it became evident that we would need to have a small bowel resection as well as a colon resection. Thus stated, we will pull up that intraperitoneal mesh, which is a type that would be very prone to getting infected. At this point, the mesh was then divided in the midline up to the level of the xiphoid. The lower end of the mesh had an area of small bowel, which was essentially fused with that bowel. The small bowel was then divided off with just a small rim of the bowel with a stapler placed in a transverse orientation, thus removing the bowel, but not requiring any anastomosis below that. That portion of the mesh was then removed from the abdominal wall as well and sent as a separate specimen. The upper aspect of the mesh had an area of liver, about roughly 8 to 10 cm in length, which was essentially fused. Initially, attempted dissection of the liver off that and showed it to be bleeding quite aggressively in a tiny location. Given this, a decision was made to resect that portion of the liver attached to the mesh so as to avoid problems with intraoperative bleeding and postoperative bleeding and bile leaks, that portion of the liver which was roughly the medial half of the segment III. This was done with a combination of purple and black JAYCE loads. The remainder of the mesh attachments to the abdominal wall were then taken down. The specimen consisting of liver and attached mesh was then delivered from the field as well. Some minor bleeding from the liver staple lines was controlled with electrocautery. At this point, the area of the jejunojejunostomy was eventually identified. There appeared to be a fixed stricturing at the point where the Dashawn limb entered the jejunojejunostomy. This was then divided away at that level with the JAYCE stapler and subsequently the Dashawn limb was anastomosed roughly 20 cm distal to that point. The remainder of the small bowel was eventually lysed of adhesions. Two areas of stricturing were identified after the lysis of adhesions, one in the midjejunum and the other one in the midileum. In both cases, the bowel was flipped over on itself. An enterotomy at the apex of the bowel was made and internal firing with a JAYCE 60 mm pond load was accomplished and common opening closed with purple loads. In each case, there was no underlying mesenteric defect and angles of anastomosis at both sites were closed with 3-0 Vicryl seromuscular stitch. The small bowel continuity was then accomplished with re-anastomosis of the Dashawn limb to the small bowel roughly 20 cm distal to that, with a [id number]-cv-rbay enteroenterostomy with the 60 mm pond load followed by 60 mm purple load. The angles were anastomosed and were reinforced with some 3-0 Vicryl stitch, and the mesenteric defect in this case was closed with 2-0 silk stitch. The Dashawn limb at this point was noted to be around 80 cm, and the common limb at this point was noted to be around 350 cm. So, an adequate elementary length was confirmed at that point. The last remaining problem that the patient had was a strikingly dilated sigmoid colon. This was quite thinned out and chronic, and appeared to likely be contributing significantly to the patient's chronic aspiration. This was, at this point, almost entirely air-filled. The midsigmoid colon was then divided along with the upper rectum with JAYCE staplers and intervening mesentery divided with mesenteric loads and that specimen of the sigmoid colon and upper rectum was then delivered from the field. A logm-go-dqqo coloproctostomy was then accomplished with internal firing of the JAYCE 60 mm pond load followed by 45 mm pond load, and the common opening then closed transversely with the purple load, and angles anastomosed. The mesenteric defects were then also reinforced with 3-0 Vicryl stitch. At this point, no further problems were noted. The abdomen was irrigated with antibiotic- containing saline solution. A Gene-Burgos drain was felt not to be necessary. The patient did not have any omentum movable into the lower abdomen or pelvis to protect the abdominal wall from recurrent adhesion formation to the underlying viscera. Given this, two sets of Interceed mesh were placed with the lower one beginning in the pelvis below the bladder and up along the pelvic and abdominal wall, and the second one somewhat higher up on the abdominal wall underlying incision. The midline fascia was then approximated with a #2 Vicryl stitch. Skin and subcutaneous tissues were felt to be at high risk for a wound infection should they be closed. Also, prior to closure, bilateral transversus abdominal plane blocks were placed along the mid-abdominal area using ultrasound guidance and standard solution was placed bilaterally. The patient was taken to the recovery room in a satisfactory condition. There were no evident complications. Physician sugar laboratory assistant, Sarah Bailey, played an essential role in assisting in this case, helping to position the patient, retracting structures as needed, as well as suturing and cutting sutures when indicated. Her presence improved patient safety and decreased the operative time. Preston Russ MD /[id number]
[2017-07-28] MEDS: Pantoprazole 40 MG Tab.CR PO SCH (16:14)
[2017-07-28] MEDS: Ondansetron 4 MG/2 ML SDV IVPUSH PRN (17:56)
[2017-07-28] MEDS: MVI, Adult with Vitamin K 10 ML, Thiamine 100 MG, Chromium/Copper/Mang/Selen/Zn 1 ML in... IV SCH ×4 (18:27)
[2017-07-28] MEDS: Metoclopramide 10 MG/2 ML SDV IV PRN (18:31)
[2017-07-28] MEDS: Montelukast 10 MG Tab PO SCH (22:18)
[2017-07-29] MEDS: Acetaminophen 325 MG Tab PO SCH ×4 (02:39→20:30)
[2017-07-29] MEDS: Dextrose 5%-Lactated Ringers 1,000 ML IV SCH (04:30)
[2017-07-29] MEDS: Albuterol/Ipratropium 3.0-0.5 MG/3 ML Neb Soln INH SCH ×4 (07:30→20:29)
[2017-07-29] MEDS ORDERED: Dextrose 5%-Lactated Ringers 1,000 ML IV SCH (07:45)
[2017-07-29] MEDS: Lubiprostone 24 MCG Cap PO SCH ×2 (08:22→16:19)
[2017-07-29] MEDS: Citalopram 20 MG Tab PO SCH (08:22)
[2017-07-29] MEDS: Gabapentin 300 MG Cap PO SCH ×2 (08:22→20:31)
[2017-07-29] MEDS: Celecoxib 200 MG Cap PO SCH (08:22)
[2017-07-29] MEDS ORDERED: Bisacodyl 5 MG Tab PO ONE (10:00)
[2017-07-29] MEDS: Metoclopramide 10 MG/2 ML SDV IV PRN ×2 (13:29→20:35)
[2017-07-29] MEDS: MVI, Adult with Vitamin K 10 ML, Thiamine 100 MG, Chromium/Copper/Mang/Selen/Zn 1 ML in... IV SCH ×4 (16:17)
[2017-07-29] MEDS: Pantoprazole 40 MG Tab.CR PO SCH (16:19)
[2017-07-29] MEDS: Bisacodyl 10 MG Supp RECTAL PRN (16:27)
[2017-07-29] MEDS: Ondansetron 4 MG/2 ML SDV IVPUSH PRN (18:01)
[2017-07-29] MEDS: Morphine PF 150 MG/30 ML PCA Syringe IV PRN (19:59)
[2017-07-29] MEDS: Montelukast 10 MG Tab PO SCH (20:31)
[2017-07-30] MEDS: Acetaminophen 325 MG Tab PO SCH ×2 (02:41→09:47)
[2017-07-30] MEDS: Albuterol/Ipratropium 3.0-0.5 MG/3 ML Neb Soln INH SCH ×4 (07:15→21:21)
[2017-07-30] MEDS: Sodium Chloride 0.9% 10 ML Syringe FLUSH PRN ×4 (08:42→21:29)
[2017-07-30] MEDS: Acetaminophen/HYDROcodone 325-5 MG Tab PO PRN ×4 (08:54→21:31)
[2017-07-30] MEDS: Lubiprostone 24 MCG Cap PO SCH ×2 (08:55→16:00)
[2017-07-30] MEDS: Celecoxib 200 MG Cap PO SCH (08:56)
[2017-07-30] MEDS: Gabapentin 300 MG Cap PO SCH ×2 (08:56→21:22)
[2017-07-30] MEDS: Citalopram 20 MG Tab PO SCH (08:57)
[2017-07-30] MEDS ORDERED: Magnesium Hydroxide 400 MG/5 ML Susp 30 ML Cup PO ONE (09:00)
[2017-07-30] MEDS ORDERED: Bisacodyl 5 MG Tab PO ONE (10:00)
--- NOTE | 2017-07-30 11:44 | PN ---
DATE OF SERVICE: 07/30/2017 SUBJECTIVE: Geovanni is waiting for her bowels to move. She had 2 bowel movements on 07/29/2017, but she feels like she has not emptied out completely. Vital signs have been stable. Pain has been managed. REVIEW OF SYSTEMS: Remainder of review of systems negative for any pertinent positives and negatives. OBJECTIVE: GENERAL: Geovanni Zaragoza is a 46-year-old female. She is alert and orientated. Color pale. VITAL SIGNS: TPR 98.6, 105, 16, and blood pressure 119/76. HEENT: Negative. NECK: Supple. HEART: Regular rate and rhythm. LUNGS: Clear. ABDOMEN: Soft and minimally tender. [place] intact. Midline JAVIER drain draining scant amounts of light pink drainage. EXTREMITIES: Without peripheral edema. ASSESSMENT: 1. Delayed primary closure for open abdominal incision, 07/26/2017. 2. Exploratory laparotomy with lysis of adhesion, removal of intraperitoneal mesh, removal of segment of the small bowel adherent to mesh portal, left hepatic lobectomy adherent to mesh, small bowel resection, small bowel stricturoplasty, mid-jejunojejunostomy, rectosigmoid resection with coloproctostomy and placement of Interceed mesh x2, insertion of left subclavian triple lumen for limited peripheral venous access, partial small bowel obstruction associated with adhesions, focal stricture at the JJ Dashawn limb junction, small bowel stricture x2, contracted intraperitoneal mesh with adherence of small bowel and liver to mesh, marked dilatation, decompensation of the rectosigmoid colon associated with severe chronic constipation. Date of surgery, 07/25/2017. Surgeon, Preston Russ MD. PLAN: 1. Saline lock IV. 2. Discontinue DIRECTOR OF VALUATION and continuous pulse ox. 3. [place] 5/325 mg 1 to 2 every 4 hours p.r.n. pain. 4. Milk of magnesia 30 mL, one dose now and followed in 1 hour by Dulcolax, 2 tabs. 5. May have coffee, which she states will stimulate her bowels. 6. Good pulmonary toilet. 7. We will evaluate p.r.n. or in a.m. Sarah Bailey PA-C /[id number]
--- NOTE | 2017-07-30 12:35 | PN ---
DATE OF SERVICE: 07/29/2017 SUBJECTIVE: The patient has been afebrile with stable vital signs. Had a small bowel movement overnight. She has been working on the MiraLAX presently, which I think will get things going with MiraLAX. May give her some Dulcolax oral tablets as well. Otherwise, she will get in the shower today. Her oral intake was fairly good yesterday. She was advised to slow down a little bit until we get the bowels functioning somewhat better, but otherwise we will switch her IV to keep open and continue the TUBULAR STOCK GLASS BULB MACHINE FORMER for today. Preston Russ MD /[id number]
[2017-07-30] MEDS: Pantoprazole 40 MG Tab.CR PO SCH (15:59)
[2017-07-30] MEDS: Bisacodyl 10 MG Supp RECTAL PRN (17:32)
[2017-07-30] MEDS: Montelukast 10 MG Tab PO SCH (21:22)
[2017-07-30] MEDS: Metoclopramide 10 MG/2 ML SDV IV PRN (21:23)
[2017-07-31] MEDS: Acetaminophen/HYDROcodone 325-5 MG Tab PO PRN ×4 (03:25→20:30)
[2017-07-31] MEDS: Albuterol/Ipratropium 3.0-0.5 MG/3 ML Neb Soln INH SCH ×4 (07:12→20:27)
[2017-07-31] MEDS: Lubiprostone 24 MCG Cap PO SCH ×2 (08:17→16:50)
[2017-07-31] MEDS: Citalopram 20 MG Tab PO SCH (08:18)
[2017-07-31] MEDS: Gabapentin 300 MG Cap PO SCH ×2 (08:18→20:27)
[2017-07-31] MEDS: Celecoxib 200 MG Cap PO SCH (08:18)
[2017-07-31] MEDS: Polyethylene Glycol 3350 Powder 17 GM Packet PO SCH ×2 (08:46→13:05)
[2017-07-31] MEDS: Metoclopramide 10 MG/2 ML SDV IV PRN (08:53)
[2017-07-31] MEDS ORDERED: Ondansetron 4 MG Tab.DIS PO PRN (09:00)
[2017-07-31] MEDS ORDERED: Metoclopramide 10 MG Tab PO PRN (09:00)
[2017-07-31] MEDS: Erythromycin Ethylsuccinate Susp 400 MG/5 ML 100 ML Bottle PO SCH ×3 (09:37→21:21)
--- NOTE | 2017-07-31 10:14 | PN ---
DATE OF SERVICE: 07/31/2017 SUBJECTIVE: Geovanni has had one loose bowel movement with some formed bowel movement, but remains to be slightly distended. She feels like she really has not completely emptied her bowels. Oral intake 2350. Output has been 2200. She has been eating 100% of breakfast and lunch, and 80% of dinner. REVIEW OF SYSTEMS: Remainder of review of systems negative for any pertinent positives and negatives. OBJECTIVE: GENERAL: Geovanni Zaragoza is a 46-year-old female. Alert and orientated. VITAL SIGNS: TPR is 99.1, 97, 18, and blood pressure 107/67. HEENT: Negative. NECK: Supple. HEART: Regular rate and rhythm. LUNGS: Clear. ABDOMEN: Slightly distended, but very soft and nontender. EXTREMITIES: Without peripheral edema. ASSESSMENT: 1. Delayed primary closure of open abdominal incision, 07/26/2017. 2. Exploratory laparotomy with lysis of adhesion, removal of intraperitoneal mesh, removal of segment of the small bowel adherent to mesh portal, left hepatic lobectomy adherent to mesh, small bowel resection, small bowel stricturoplasty, mid-jejunojejunostomy, rectosigmoid resection with coloproctostomy and placement of Interceed mesh x2, insertion of left subclavian triple lumen for limited peripheral venous access, partial small bowel obstruction associated with adhesions, focal stricture at the JJ Dashawn limb junction and small bowel stricture x2, contracted intraperitoneal mesh with adherence of small bowel and liver to mesh marked distention, decompensation of the rectosigmoid colon associated with severe chronic constipation. Date of surgery, 07/25/2017. Surgeon, Preston Russ MD. PLAN: 1. MiraLAX 119 grams in 3 divided doses. 2. Erythromycin 125 mg t.i.d. p.o. 3. Good pulmonary toilet. 4. We will evaluate p.r.n. or in a.m. Sarah Bailey PA-C /[id number]
[2017-07-31] MEDS: Pantoprazole 40 MG Tab.CR PO SCH (16:50)
[2017-07-31] MEDS: Dextrose 5%-Lactated Ringers 1,000 ML IV SCH (18:20)
[2017-07-31] MEDS: Montelukast 10 MG Tab PO SCH (20:28)
[2017-07-31] MEDS: Bisacodyl 10 MG Supp RECTAL SCH (20:28)
[2017-07-31] MEDS: Metoclopramide 10 MG/2 ML SDV IVPUSH SCH (21:06)
[2017-08-01] MEDS: Acetaminophen/HYDROcodone 325-5 MG Tab PO PRN (00:49)
[2017-08-01] MEDS: Metoclopramide 10 MG/2 ML SDV IVPUSH SCH ×4 (03:18→21:14)
[2017-08-01] MEDS: Erythromycin Ethylsuccinate Susp 400 MG/5 ML 100 ML Bottle PO SCH ×4 (03:24→21:14)
[2017-08-01] MEDS: Dextrose 5%-Lactated Ringers 1,000 ML IV SCH ×3 (03:28→23:15)
[2017-08-01] MEDS: Albuterol/Ipratropium 3.0-0.5 MG/3 ML Neb Soln INH SCH ×4 (07:18→21:13)
[2017-08-01] MEDS: Lubiprostone 24 MCG Cap PO SCH ×2 (08:32→18:19)
[2017-08-01] MEDS: Citalopram 20 MG Tab PO SCH (08:32)
[2017-08-01] MEDS: Gabapentin 300 MG Cap PO SCH ×2 (08:32→21:13)
[2017-08-01] MEDS: Celecoxib 200 MG Cap PO SCH (08:32)
[2017-08-01] MEDS: Bisacodyl 10 MG Supp RECTAL SCH ×2 (08:32→21:13)
--- NOTE | 2017-08-01 09:26 | CR ---
2 view abdomen Postoperative findings present. There are midline surgical kitty. Patient has had a prior Dashawn-en-Y gastric bypass. There are dilated loops of small bowel in left upper quadrant. The finding likely re flects dilatation of the Dashawn limb. The gastric pouch appears mildly distended. There is air seen wit hin the colon. There is no colonic distention. There is no evidence for fecal impaction. Impression: 1. Dilated loops of small bowel most notable in the left upper quadrant. The finding may reflect a po stoperative ileus. An obstruction of the small bowel involving the Dashawn limb cannot be excluded. Clin ical correlation recommended
[2017-08-01] MEDS: traMADol 50 MG Tab PO PRN ×3 (09:45→20:39)
--- NOTE | 2017-08-01 14:23 | PN ---
DATE OF SERVICE: 08/01/2017 SUBJECTIVE: She had 3 liquid BMs yesterday. She felt bloated and a little bit nauseated. Diet was backed off to clear liquids. She had one dose of MiraLAX left and that was discontinued. She states, this morning, she is feeling better. Color has improved. She is less distended, but states she gets more distended as the day goes on. Pain is controlled she states. She has not been using that regularly. Closer to 6 hours, JAVIER drain put out 2 mL of a light pink serosanguineous drainage. REVIEW OF SYSTEMS: Remainder of review of systems negative for any pertinent positives and negatives. OBJECTIVE: GENERAL: Geovanni Zaragoza is a 46-year-old female. Alert and orientated. Sitting up in the chair. VITAL SIGNS: TPR is 98.5, 100, 16, and blood pressure 114/68. HEENT: Negative. NECK: Supple. HEART: Regular rate and rhythm. LUNGS: Clear. ABDOMEN: Slightly distended. It is soft and nontender. EXTREMITIES: Without peripheral edema. ASSESSMENT: 1. Delayed primary closure of open abdominal incision, 07/26/2017. 2. Exploratory laparotomy with lysis of adhesion, removal of intraperitoneal mesh, removal of segment of the small bowel adherent to mesh portal, left lobe lobectomy adherent to mesh, small bowel resection, small bowel stricturoplasty, mid-jejunojejunostomy, rectosigmoid resection with coloproctostomy, and placement of Interceed mesh x2, small bowel obstruction associated with adhesions, focal stricture at the JJ Dashawn limb junction, small bowel stricture x2, contracted intraperitoneal mesh with adherence of the small bowel and liver to mesh, marked distention, decompensation of the rectosigmoid colon associated with severe chronic constipation. Date of surgery, 07/25/2017. Surgeon, Preston Russ MD. 3. Postoperative ileus. PLAN: 1. Slowly advance diet. Increase liquids. Discontinue [place]. 2. Tramadol 50 mg q.4 hours p.r.n. pain. 3. Good pulmonary toilet. 4. We will evaluate p.r.n. or in a.m. Sarah Bailey PA-C /[id number]
[2017-08-01] MEDS: Pantoprazole 40 MG Tab.CR PO SCH (15:55)
[2017-08-01] MEDS: Montelukast 10 MG Tab PO SCH (21:14)
[2017-08-02] MEDS: Metoclopramide 10 MG/2 ML SDV IVPUSH SCH (03:35)
[2017-08-02] MEDS: Erythromycin Ethylsuccinate Susp 400 MG/5 ML 100 ML Bottle PO SCH (03:36)
[2017-08-02] MEDS: traMADol 50 MG Tab PO PRN ×2 (03:40→08:34)
[2017-08-02] MEDS: Albuterol/Ipratropium 3.0-0.5 MG/3 ML Neb Soln INH SCH ×2 (07:05→11:10)
[2017-08-02 08:23] VITALS: BP 110/70
[2017-08-02] MEDS: Celecoxib 200 MG Cap PO SCH (08:28)
[2017-08-02] MEDS: Citalopram 20 MG Tab PO SCH (08:28)
[2017-08-02] MEDS: Lubiprostone 24 MCG Cap PO SCH (08:28)
[2017-08-02] MEDS: Bisacodyl 10 MG Supp RECTAL SCH (08:28)
[2017-08-02] MEDS: Gabapentin 300 MG Cap PO SCH (08:28)
--- NOTE | 2017-08-02 09:47 | DISCH ---
ADMISSION DIAGNOSES: Abdominal pain, status post Dashawn-en-Y gastric bypass surgery, unspecified surgical malabsorption, and B12 deficiency. DISCHARGE DIAGNOSIS: 1. Delayed primary closure of open abdominal incision on 07/26/2017. 2. Postoperative ileus, resolved. 3. Exploratory laparotomy with lysis of adhesions, removal of intraperitoneal mesh, removal of segment of the small bowel adherent to mesh, portal left lobe lobectomy, lobectomy adjacent to mesh, small bowel resection, small bowel stricture plasty, mid jejunojejunostomy, rectosigmoid resection with coloproctostomy, and placement of Interceed mesh x2, small bowel obstruction associated with adhesions, focal stricture at the JJ Dashawn limb junction, small bowel stricture x2, contracted intraperitoneal mesh with adherence of the small bowel and liver to mesh, marked distention and decompensation of the rectosigmoid colon associated with severe chronic constipation. Date of surgery 07/25/2017. Surgeon, Preston Russ MD. HISTORY: Geovanni Zaragoza is a 46-year-old female with chronic constipation and abdominal pain. After preoperative evaluation and discussion of possible risks and possible complications, she wished to proceed with surgical procedure. HOSPITAL COURSE: Geovanni had her surgery on 07/25/2017 with delayed primary closure. She did develop a postoperative ileus, was given bowel stimulation for the chronic constipation, was started on Amitiza, Dulcolax suppository. First bowel movement was on 07/29/2017. She felt like it was not completely emptying her out. She was given MiraLax, Senokot S, milk of magnesia, Dulcolax tablets. She also was on continued with the Reglan scheduled and with her mycin orally. On 08/01/2017, she had 3 bowel movements and was able to be discharged to home on 08/02/2017 without any complications. OBJECTIVE: GENERAL: Geovanni Zaragoza is a 46-year-old female, height is 5 feet 6 inches. Weight is 158 pounds. VITAL SIGNS: TPR is 97.1, 89, 18, blood pressure 110/70. HEENT: Negative. NECK: Supple. HEART: Regular rate and rhythm. LUNGS: Clear. ABDOMEN: [place] intact. Midline JAVIER drain has been draining 213 mL of a light pink serosanguineous drainage and abdominal binder has been on. EXTREMITIES: Without peripheral edema. DISPOSITION: Discharged to home. CONDITION: Stable and improving. FOLLOWUP APPOINTMENT: Sarah Bailey PA-C, on 08/07/2017 at 10:00 a.m. MEDICATIONS: New prescriptions: 1. Amitiza 24 mcg b.i.d. with meals #60, 11 refills. 2. Zofran ODT 4 mg q.4 h. p.r.n. #30. 3. Senokot-S two tablets twice daily, #100. 4. Tramadol 50 mg oral q.4 h. p.r.n. pain, #40. 5. She is to resume her home medications as prior to admission including her vitamins and supplements. DIET: Usual diet as tolerated. Drink 8 to 10 glasses of water a day. ACTIVITY: No lifting greater than 10 pounds for 6 weeks and then as tolerated. Driving; do not drive for 2 weeks or while on pain medication. Shower/bathing, may shower. DISCHARGE INSTRUCTIONS: Notify provider if any fever, increased pain, nausea, vomiting. Keep site clean and dry. Wound incision care; strip, empty, measure, and record JAVIER drain 4 times a day. SPECIAL INSTRUCTIONS: Use incentive spirometer 10 times every hour while awake for 1 week.
== END 2017-08-02 11:20 | disposition home or self-care (01) | DRG 330 ==
LOC: JP.ACU 14:08 → JP.2SS 15:30
PROVIDERS: ADMIT Surgery; ATTEND Surgery
PROC: 0DB80ZX Excision of Small Intestine, Open Approach, Diagnostic (ICD-10-PCS; principal; 2017-07-25)
PROC: 0DBN0ZZ Excision of Sigmoid Colon, Open Approach (ICD-10-PCS; 2017-07-25)
PROC: 0WPF0JZ Removal of Synthetic Substitute from Abdominal Wall, Open Approach (ICD-10-PCS; 2017-07-25)
PROC: 0DB80ZX Excision of Small Intestine, Open Approach, Diagnostic (ICD-10-PCS; 2017-07-25)
PROC: 0DBB0ZX Excision of Ileum, Open Approach, Diagnostic (ICD-10-PCS; 2017-07-25)
PROC: 0DBA0ZX Excision of Jejunum, Open Approach, Diagnostic (ICD-10-PCS; 2017-07-25)
PROC: 0DBP0ZZ Excision of Rectum, Open Approach (ICD-10-PCS; 2017-07-25)
PROC: 0DNB0ZZ Release Ileum, Open Approach (ICD-10-PCS; 2017-07-25)
PROC: 0DN80ZZ Release Small Intestine, Open Approach (ICD-10-PCS; 2017-07-25)
PROC: 0DNW0ZZ Release Peritoneum, Open Approach (ICD-10-PCS; 2017-07-25)
PROC: 0DNA0ZZ Release Jejunum, Open Approach (ICD-10-PCS; 2017-07-25)
PROC: 0FB20ZX Excision of Left Lobe Liver, Open Approach, Diagnostic (ICD-10-PCS; 2017-07-25)
PROC: 0D1N0ZP Bypass Sigmoid Colon to Rectum, Open Approach (ICD-10-PCS; 2017-07-25)
PROC: 3E0M05Z Introduction of Adhesion Barrier into Peritoneal Cavity, Open Approach (ICD-10-PCS; 2017-07-25)
PROC: 02HV33Z Insertion of Infusion Device into Superior Vena Cava, Percutaneous Approach (ICD-10-PCS; 2017-07-25)
PROC: 3E0T3BZ Introduction of Anesthetic Agent into Peripheral Nerves and Plexi, Percutaneous Approach (ICD-10-PCS; 2017-07-25)
PROC: 3E0M05Z Introduction of Adhesion Barrier into Peritoneal Cavity, Open Approach (ICD-10-PCS; 2017-07-25)
PROC: 0WQF0ZZ Repair Abdominal Wall, Open Approach (ICD-10-PCS; 2017-07-27)
PROC: 3E0T3BZ Introduction of Anesthetic Agent into Peripheral Nerves and Plexi, Percutaneous Approach (ICD-10-PCS; 2017-07-27)
DX: K56.51 Intestinal adhesions [bands], with partial obstruction (principal); K59.39 Other megacolon; K91.2 Postsurgical malabsorption, not elsewhere classified; K56.7 Ileus, unspecified; K59.09 Other constipation; K56.699 Other intestinal obstruction unspecified as to partial versus complete obstruction; Z48.1 Encounter for planned postprocedural wound closure; M19.90 Unspecified osteoarthritis, unspecified site; Z87.891 Personal history of nicotine dependence; Z88.8 Allergy status to other drugs, medicaments and biological substances; E53.8 Deficiency of other specified B group vitamins; Z98.84 Bariatric surgery status; Z98.0 Intestinal bypass and anastomosis status
CPT/HCPCS: 36415; 71045; 71045-26; 74019; 74019-26; 74177; 74240; 74240-26; 74245; 74245-26; 80053; 80305; 81001; 81025; 82728; 83605; 83690; 83735; 83880; 84100; 85025; 85027; 88304; 88305; 88307; 93971-26-LT; 93971-LT; 94640; 94762; 96361; 96374; 99204; 99284-25; A9270-GY; C9113; J0171; J0330; J0694; J1100; J1642; J2001; J2185; J2250; J2270; J2405; J2704; J2710; J2765; J2795; J3010; J3410; J3411; J3420; J3475; J3490; J7030; J7042; J7050; J7120; J7620; Q9967

== ENCOUNTER 2017-08-09 17:44 | Inpatient (IN) | payer OTHER ==
[2017-08-09] MEDS ORDERED: HYDROmorphone 1 MG/ML Syringe IVPUSH ONE (18:31)
[2017-08-09] MEDS ORDERED: Ondansetron 4 MG/2 ML SDV IVPUSH ONE (18:31)
[2017-08-09] MEDS ORDERED: Lactated Ringers 1,000 ML IV SCH (18:45)
[2017-08-09] MEDS ORDERED: Sodium Chloride 0.9% 100 ML IV SCH (19:00)
[2017-08-09] MEDS ORDERED: Iopamidol 612 MG/ML 100 ML Bottle IV SCH (19:00)
[2017-08-09] MEDS: Bacitracin Oint 1 GM U/D Packet TOP ONE ×2 (20:06→20:34)
--- NOTE | 2017-08-09 20:42 | EDM.PDOC ---
ED HPI GENERAL MEDICAL PROBLEM - General Chief Complaint: General Stated Complaint: INCISION LEAKING Time Seen by Provider: 08/09/17 18:27 Source of Information: Reports: Patient, Family, RN Notes Reviewed History Limitations: Reports: No Limitations - History of Present Illness INITIAL COMMENTS - FREE TEXT/NARRATIVE: 46-year-old female presents to the emergency department with complaint of leaking surgical wound. She recently underwent abdominal surgery for small bowel obstruction with delayed primary closure on 26 July she states that today she has felt feverish and all of a sudden large collection of pus was produced from her surgical wound. Abdomen Pain Score (Numeric/FACES): 7 - Related Data Allergies Allergy/AdvReac Type Severity Reaction Status Date / Time tioconazole [From Monistat 1] Allergy Rash Verified 08/09/17 18:09 hydromorphone HCl AdvReac Nausea Verified 08/09/17 18:09 [From Dilaudid] Home Meds: Home Meds Docusate Sodium [Colace] 1 tab PO BID 04/25/13 [History] Vitamin B Complex [B Complex] 1 each PO BID 04/25/13 [History] Bisacodyl [Dulcolax] 3 tab PO BEDTIME 01/25/14 [History] Cholecalciferol (Vitamin D3) [Vitamin D3] 5,000 unit PO DAILY 01/25/14 [History] Cyanocobalamin (Vitamin B-12) [B-12] 2,500 mcg SL BID 01/25/14 [History] Gabapentin [Neurontin] 600 mg PO BID 01/25/14 [History] Multivitamin [Chewable Multi Vitamin] 2 tab CHEW DAILY 10/21/14 [History] Citalopram [Citalopram HBr] 20 mg PO DAILY 07/22/17 [History] Levocetirizine Dihydrochloride 5 mg PO DAILY 07/22/17 [History] Montelukast Sodium 10 mg PO DAILY 07/22/17 [History] Sennosides/Docusate Sodium [Senokot-S Tablet] 2 each PO BID #100 tablet [Rx] traMADol [Ultram] 50 mg PO Q4H PRN #40 tablet 08/02/17 [Rx] Norethindrone-Ethinyl Estrad [Nortrel 1-35 21 Tablet] 1 tab PO DAILY 08/09/17 [ History] Past Medical History HEENT History: Reports: Allergic Rhinitis, Otitis Media Cardiovascular History: Reports: High Cholesterol Gastrointestinal History: Reports: Bowel Obstruction, Cholelithiasis 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: Musculoskeletal History: Reports: Osteoarthritis, Other (See Below) Other Musculoskeletal History: carpal tunnel Neurological History: Reports: Other (See Below) Other Neuro History: restless leg Psychiatric History: Reports: Depression Endocrine/Metabolic History: Reports: Vitamin D Deficiency Hematologic History: Reports: Anemia, B12 Deficiency, Iron Deficiency - Past Surgical History HEENT Surgical History: Reports: None GI Surgical History: Reports: Bariatric Procedure, Cholecystectomy, Colon, Hernia, Abdominal Female Surgical History: Reports: Section Endocrine Surgical History: Reports: None Musculoskeletal Surgical History: Reports: Arthroscopic Knee, Ganglion Cyst, Shoulder Surgery Social & Family History - Tobacco Use Smoking Status *Q: Former Smoker Used Tobacco, but Quit: Yes Month/Year Tobacco Last Used: 2010 - Caffeine Use Caffeine Use: Reports: Soda - Recreational Drug Use Recreational Drug Use: No ED ROS GENERAL - Review of Systems Review Of Systems: See Below Constitutional: Reports: Fever, Chills HEENT: Reports: No Symptoms Respiratory: Reports: No Symptoms Cardiovascular: Reports: No Symptoms GI/Abdominal: Reports: Abdominal Pain, Nausea. Denies: Vomiting : Reports: No Symptoms Skin: Reports: Wound ED EXAM, GENERAL - Physical Exam Exam: See Below Exam Limited By: No Limitations General Appearance: Alert, No Apparent Distress Respiratory/Chest: No Respiratory Distress, Lungs Clear, Normal Breath Sounds, No Accessory Muscle Use Cardiovascular: Regular Rate, Rhythm, No Murmur GI/Abdominal: Soft, Tender (Generalized tenderness), Other (Surgical wound is clean dry and intact at the superior aspect inferior aspect is open with thick purulent drainage) Course - Vital Signs Last Recorded V/S: Last Vital Signs Temp 100.4 F 08/09/17 20:30 Pulse 84 08/09/17 20:30 Resp 14 08/09/17 20:30 BP 113/68 08/09/17 20:30 Pulse Ox 100 08/09/17 20:30 - Orders/Labs/Meds Orders: Active Orders 24 hr Category Date Time Status Vital Signs [RC] Q1H Care 08/09/17 18:31 Active Abdomen Pelvis w Cont [CT] Stat Exams 08/09/17 18:47 Taken CULTURE BLOOD [BC] Urgent Lab 08/09/17 19:00 Received CULTURE BLOOD [BC] Urgent Lab 08/09/17 19:10 Received CULTURE WOUND + SMEAR [RM] Urgent Lab 08/09/17 20:10 Ordered UA W/MICROSCOPIC [URIN] Stat Lab 08/09/17 20:10 Ordered Iopamidol [Isovue-300 (61%)] Med 08/09/17 19:00 Active 100 ml IV . DIRECTED Lactated Ringers [Ringers, Lactated] 1,000 ml Med 08/09/17 18:45 Active IV ASDIRECTED Sodium Chloride 0.9% [Normal Saline] 100 ml Med 08/09/17 19:00 Active IV ASDIRECTED Blood Culture x2 Reflex Set [OM.PC] Urgent Oth 08/09/17 18:31 Ordered Medication Orders Lactated Ringer's (Ringers, Lactated) 1,000 mls @ 999 mls/hr IV ASDIRECTED NAVA Last Admin: 08/09/17 19:02 Dose: 999 mls/hr Sodium Chloride (Normal Saline) 100 mls @ 3 mls/sec IV ASDIRECTED NAVA Last Admin: 08/09/17 19:52 Dose: 3 mls/sec Iopamidol (Isovue-300 (61%)) 100 ml IV . DIRECTED NAVA Last Admin: 08/09/17 19:52 Dose: 100 ml Labs: Laboratory Tests 08/09/17 08/09/17 08/09/17 Range/Units 19:10 19:10 19:10 WBC 13.7 H (4.5-11.0) K/uL RBC 3.66 (3.30-5.50) M/uL Hgb 10.0 L (12.0-15.0) g/dL Hct 30.5 L (36.0-48.0) % MCV 83 (80-98) fL MCH 27 (27-31) pg MCHC 33 (32-36) % Plt Count 542 H (150-400) K/uL Neut % (Auto) 81 H (36-66) % Lymph % (Auto) 10 L (24-44) % [place] % (Auto) 6 (2-6) % Eos % (Auto) 3 (2-4) % Baso % (Auto) 0 (0-1) % Sodium 140 (140-148) mmol/L Potassium 3.0 L (3.6-5.2) mmol/L Chloride 104 (100-108) mmol/L Carbon Dioxide 26 (21-32) mmol/L Anion Gap 13.0 (5.0-14.0) mmol/L BUN 11 (7-18) mg/dL Creatinine 1.0 (0.6-1.0) mg/dL Est Cr Clr Drug Dosing 64.60 mL/min Estimated GFR (MDRD) > 60 (>60) Glucose 74 (74-106) mg/dL Lactic Acid 0.5 (0.4-2.0) mmol/L Calcium 7.7 L (8.5-10.1) mg/dL Total Bilirubin 0.4 (0.2-1.0) mg/dL AST 13 L (15-37) U/L ALT 28 (12-78) U/L Alkaline Phosphatase 97 (46-116) U/L C-Reactive Protein 14.54 H (0.0-0.3) mg/dL Total Protein 6.4 (6.4-8.2) g/dL Albumin 2.2 L (3.4-5.0) g/dL Globulin 4.2 H (2.3-3.5) g/dL Albumin/Globulin Ratio 0.5 L (1.2-2.2) Meds: Medications Generic Name Dose Route Start Last Admin Trade Name Freq PRN Reason Stop Dose Admin Lactated Ringer's 1,000 mls @ 999 mls/hr 08/09/17 18:45 08/09/17 19:02 Ringers, Lactated IV 999 mls/hr ASDIRECTED NAVA Administration Sodium Chloride 100 mls @ 3 mls/sec 08/09/17 19:00 08/09/17 19:52 Normal Saline IV 3 mls/sec ASDIRECTED NAVA Administration Iopamidol 100 ml 08/09/17 19:00 08/09/17 19:52 Isovue-300 (61%) IV 100 ml . DIRECTED NAVA Administration Discontinued Medications Generic Name Dose Route Start Last Admin Trade Name Freq PRN Reason Stop Dose Admin Bacitracin 1 dose 08/09/17 19:22 08/09/17 20:34 Bacitracin Oint 1 Gm TOP 08/09/17 19:23 Not Given ONETIME ONE Hydromorphone HCl 1 mg 08/09/17 18:31 08/09/17 19:02 Dilaudid IVPUSH 08/09/17 18:32 1 mg ONETIME ONE Administration Ondansetron HCl 4 mg 08/09/17 18:31 08/09/17 19:04 Zofran IVPUSH 08/09/17 18:32 4 mg ONETIME ONE Administration Departure - Departure Time of Disposition: 20:42 Disposition: Admitted As Inpatient 68 Condition: Fair Clinical Impression: Wound dehiscence - Discharge Information Referrals: Sarah Bailey PA-C [Primary Care Provider] - - My Orders Last 24 Hours: My Active Orders 08/09/17 18:31 Vital Signs [RC] Q1H Blood Culture x2 Reflex Set [OM.PC] Urgent 08/09/17 18:45 Lactated Ringers [Ringers, Lactated] 1,000 ml IV ASDIRECTED 08/09/17 18:47 Abdomen Pelvis w Cont [CT] Stat 08/09/17 19:00 CULTURE BLOOD [BC] Urgent Iopamidol [Isovue-300 (61%)] 100 ml IV . DIRECTED Sodium Chloride 0.9% [Normal Saline] 100 ml IV ASDIRECTED 08/09/17 19:10 CULTURE BLOOD [BC] Urgent 08/09/17 20:10 CULTURE WOUND + SMEAR [RM] Urgent UA W/MICROSCOPIC [URIN] Stat - Assessment/Plan Last 24 Hours: My Active Orders 08/09/17 18:31 Vital Signs [RC] Q1H Blood Culture x2 Reflex Set [OM.PC] Urgent 08/09/17 18:45 Lactated Ringers [Ringers, Lactated] 1,000 ml IV ASDIRECTED 08/09/17 18:47 Abdomen Pelvis w Cont [CT] Stat 08/09/17 19:00 CULTURE BLOOD [BC] Urgent Iopamidol [Isovue-300 (61%)] 100 ml IV . DIRECTED Sodium Chloride 0.9% [Normal Saline] 100 ml IV ASDIRECTED 08/09/17 19:10 CULTURE BLOOD [BC] Urgent 08/09/17 20:10 CULTURE WOUND + SMEAR [RM] Urgent UA W/MICROSCOPIC [URIN] Stat Plan: Assessment Acuity = acute Site and laterality = wound dehiscence abdominal surgery laparotomy Etiology = unclear etiology Manifestations = fever Location of injury = Home Lab values = WBC elevated at 13.7 consistent leukocytosis potassium low at 3.0 consistent hypokalemia CRP elevated 14.5 and albumin low at 2.2 consistent hypoalbuminemia, CT scan pending Plan Called discussed case with Dr. Andrade general surgeon solution architect he agreed to come and evaluate the patient emergency department for admission This note was dictated using [employer] voice recognition software please call with any questions on syntax or grammar.
[2017-08-09] MEDS ORDERED: Ondansetron 4 MG/2 ML SDV IV PRN (21:00)
[2017-08-09] MEDS ORDERED: Potassium Chloride 20 MEQ in Premix Bag 1 BAG IV ONE (21:02)
--- NOTE | 2017-08-09 21:15 | PCM.HP ---
H&P History of Present Illness - General Date of Service: 08/09/17 Admit Problem/Dx: Admission Diagnosis/Problem Admission Diagnosis/Problem Wound infection with abscess Source of Information: Patient, Old Records, Provider History Limitations: Reports: No Limitations - History of Present Illness Initial Comments - Free Text/Narative: This 46 year old white female underwent a RNY GBP in 2010 for morbid obesity. She has had frequent problems since then with abdominal pain. Earlier this month she developed a small bowel obstruction which required a resection. She underwent a delayed primary closure and was subsequently discharged doing well. Today she felt a little feverish and then noted her abdomen was wet. She presented to the ER draining purulent material from her midline incision. It was not feculent. Onset of Symptoms: Reports: Today Location: Reports: Abdomen Quality: Reports: Other (Draining purulent material. ) Abdomen Pain Score (Numeric/FACES): 7 - Related Data Allergies/Adverse Reactions: Allergies Allergy/AdvReac Type Severity Reaction Status Date / Time tioconazole [From Monistat 1] Allergy Rash Verified 08/09/17 18:09 hydromorphone HCl AdvReac Nausea Verified 08/09/17 18:09 [From Dilaudid] Home Medications: Home Meds Docusate Sodium [Colace] 1 tab PO BID 04/25/13 [History] Vitamin B Complex [B Complex] 1 each PO BID 04/25/13 [History] Bisacodyl [Dulcolax] 3 tab PO BEDTIME 01/25/14 [History] Cholecalciferol (Vitamin D3) [Vitamin D3] 5,000 unit PO DAILY 01/25/14 [History] Cyanocobalamin (Vitamin B-12) [B-12] 2,500 mcg SL BID 01/25/14 [History] Gabapentin [Neurontin] 600 mg PO BID 01/25/14 [History] Multivitamin [Chewable Multi Vitamin] 2 tab CHEW DAILY 10/21/14 [History] Citalopram [Citalopram HBr] 20 mg PO DAILY 07/22/17 [History] Levocetirizine Dihydrochloride 5 mg PO DAILY 07/22/17 [History] Montelukast Sodium 10 mg PO DAILY 07/22/17 [History] Sennosides/Docusate Sodium [Senokot-S Tablet] 2 each PO BID #100 tablet [Rx] traMADol [Ultram] 50 mg PO Q4H PRN #40 tablet 08/02/17 [Rx] Norethindrone-Ethinyl Estrad [Nortrel 1-35 21 Tablet] 1 tab PO DAILY 08/09/17 [ History] Past Medical History HEENT History: Reports: Allergic Rhinitis, Otitis Media Cardiovascular History: Reports: High Cholesterol Gastrointestinal History: Reports: Bowel Obstruction, Cholelithiasis 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: Musculoskeletal History: Reports: Osteoarthritis, Other (See Below) Other Musculoskeletal History: carpal tunnel Neurological History: Reports: Other (See Below) Other Neuro History: restless leg Psychiatric History: Reports: Depression Endocrine/Metabolic History: Reports: Vitamin D Deficiency Hematologic History: Reports: Anemia, B12 Deficiency, Iron Deficiency - Past Surgical History HEENT Surgical History: Reports: None GI Surgical History: Reports: Bariatric Procedure, Cholecystectomy, Colon, Hernia, Abdominal Female Surgical History: Reports: Section Endocrine Surgical History: Reports: None Musculoskeletal Surgical History: Reports: Arthroscopic Knee, Ganglion Cyst, Shoulder Surgery Social & Family History - Tobacco Use Smoking Status *Q: Former Smoker Used Tobacco, but Quit: Yes Month/Year Tobacco Last Used: 2010 - Caffeine Use Caffeine Use: Reports: Soda - Recreational Drug Use Recreational Drug Use: No H&P Review of Systems - Review of Systems: Review Of Systems: See Below General: Reports: Fever HEENT: Reports: No Symptoms Pulmonary: Reports: No Symptoms Cardiovascular: Reports: No Symptoms Gastrointestinal: Reports: Abdominal Pain, Other (Draining purulent material from her midline incision. ) Genitourinary: Reports: No Symptoms Musculoskeletal: Reports: No Symptoms Skin: Reports: Other (Draining purulent material from her midline incision. ) Psychiatric: Reports: No Symptoms Neurological: Reports: No Symptoms Hematologic/Lymphatic: Reports: No Symptoms Immunologic: Reports: No Symptoms Exam - Exam Exam: See Below - Vital Signs Vital Signs: Last Vital Signs Temp 100.4 F 08/09/17 20:30 Pulse 84 08/09/17 20:30 Resp 14 08/09/17 20:30 BP 113/68 08/09/17 20:30 Pulse Ox 100 08/09/17 20:30 Weight: 155 lb - Exam General: Alert, Oriented, Cooperative Lungs: Clear to Auscultation Cardiovascular: Regular Rate, Regular Rhythm GI/Abdominal Exam: Normal Bowel Sounds, Soft, Non-Tender (Tender after her incision was opened. ) Back Exam: Normal Inspection Extremities: Normal Inspection Skin: Warm, Dry. No: Intact Neuro Extensive - Mental Status: Alert, Oriented x3, Normal Mood/Affect, Normal Cognition, Memory Intact Psychiatric: Alert, Normal Affect, Normal Mood - Patient Data Lab Results Last 24 hrs: Laboratory Results - last 24 hr 08/09/17 08/09/17 08/09/17 Range/Units 19:10 19:10 19:10 WBC 13.7 H (4.5-11.0) K/uL RBC 3.66 (3.30-5.50) M/uL Hgb 10.0 L (12.0-15.0) g/dL Hct 30.5 L (36.0-48.0) % MCV 83 (80-98) fL MCH 27 (27-31) pg MCHC 33 (32-36) % Plt Count 542 H (150-400) K/uL Neut % (Auto) 81 H (36-66) % Lymph % (Auto) 10 L (24-44) % [place] % (Auto) 6 (2-6) % Eos % (Auto) 3 (2-4) % Baso % (Auto) 0 (0-1) % Sodium 140 (140-148) mmol/L Potassium 3.0 L (3.6-5.2) mmol/L Chloride 104 (100-108) mmol/L Carbon Dioxide 26 (21-32) mmol/L Anion Gap 13.0 (5.0-14.0) mmol/L BUN 11 (7-18) mg/dL Creatinine 1.0 (0.6-1.0) mg/dL Est Cr Clr Drug Dosing 64.60 mL/min Estimated GFR (MDRD) > 60 (>60) Glucose 74 (74-106) mg/dL Lactic Acid 0.5 (0.4-2.0) mmol/L Calcium 7.7 L (8.5-10.1) mg/dL Total Bilirubin 0.4 (0.2-1.0) mg/dL AST 13 L (15-37) U/L ALT 28 (12-78) U/L Alkaline Phosphatase 97 (46-116) U/L C-Reactive Protein 14.54 H (0.0-0.3) mg/dL Total Protein 6.4 (6.4-8.2) g/dL Albumin 2.2 L (3.4-5.0) g/dL Globulin 4.2 H (2.3-3.5) g/dL Albumin/Globulin Ratio 0.5 L (1.2-2.2) Result Diagrams: 08/09/17 19:10 08/09/17 19:10 Ubaldo Results Last 24 hrs: Microbiology 08/09/17 20:10 Gram Stain - Final Abdomen - Drainage - Problem List (1) Wound infection after surgery SNOMED Code(s): 80370525, [id number] ICD Code: T81.4XXA - INFECTION FOLLOWING A PROCEDURE, INITIAL ENCOUNTER Status: Acute Current Visit: Yes Problem List Initiated/Reviewed/Updated: Yes Orders Last 24hrs: Active Orders 24 hr Category Date Time Status Patient Status [ADT] Routine ADT 08/09/17 21:00 Active Height and Weight [RC] DAILY Care 08/09/17 21:00 Active Intake and Output [RC] QSHIFT Care 08/09/17 21:01 Active Oxygen Therapy [RC] PRN Care 08/09/17 21:00 Active Up With Assistance [RC] ASDIRECTED Care 08/09/17 21:00 Active VTE/DVT Education [RC] Per Unit Routine Care 08/09/17 21:00 Active Vital Signs [RC] Q1H Care 08/09/17 18:31 Active Vital Signs [RC] Q4H Care 08/09/17 21:00 Active Nothing per Oral After Midnight Diet [DIET] Diet 08/10/17 Breakfast Active Abdomen Pelvis w Cont [CT] Stat Exams 08/09/17 18:47 Taken BASIC METABOLIC PANEL,BMP [CHEM] AM Lab 08/10/17 05:11 Ordered CBC WITH AUTO DIFF [HEME] AM Lab 08/10/17 05:11 Ordered CULTURE BLOOD [BC] Urgent Lab 08/09/17 19:00 Received CULTURE BLOOD [BC] Urgent Lab 08/09/17 19:10 Received CULTURE WOUND + SMEAR [RM] Urgent Lab 08/09/17 20:10 Ordered UA W/MICROSCOPIC [URIN] Stat Lab 08/09/17 20:10 Ordered Bisacodyl [Dulcolax] Med 08/10/17 21:00 Ordered DOSE mg PO BEDTIME Cholecalciferol (Vitamin D3) [Vitamin D3] Med 08/10/17 09:00 Ordered 5,000 unit PO DAILY Citalopram [Celexa] Med 08/10/17 09:00 Ordered 20 mg PO DAILY Cyanocobalamin (Vitamin B-12) [B-12] Med 08/10/17 09:00 Ordered 2,500 mcg SL BID Docusate Sodium [Colace] Med 08/10/17 09:00 Ordered DOSE mg PO BID Docusate Sodium/Sennosides [Senna Plus] Med 08/10/17 09:00 Ordered DOSE tab PO BID Gabapentin [Neurontin] Med 08/10/17 09:00 Ordered 600 mg PO BID Iopamidol [Isovue-300 (61%)] Med 08/09/17 19:00 Active 100 ml IV . DIRECTED Lactated Ringers [Ringers, Lactated] 1,000 ml Med 08/09/17 18:45 Active IV ASDIRECTED Lactated Ringers [Ringers, Lactated] 1,000 ml Med 08/09/17 21:00 Ordered IV ASDIRECTED Levocetirizine Dihydrochloride [Levocetirizine Med 08/10/17 09:00 Ordered Dihydrochloride] 5 mg PO DAILY Montelukast [Singulair] Med 08/10/17 09:00 Ordered 10 mg PO DAILY Multivitamin [Chewable Multi Vitamin] Med 08/10/17 09:00 Ordered 2 tab CHEW DAILY Norethindrone-Ethinyl Estrad [Nortrel 1-35 21 Tablet] Med 08/10/17 09:00 Ordered 1 tab PO DAILY Ondansetron [Zofran] Med 08/09/17 21:00 Ordered 4 mg IV Q4H PRN Potassium Chloride [KCL 20 MEQ in Water 100 ML] 20 meq Med 08/09/17 21:02 Ordered Premix Bag 1 bag IV ONETIME Sodium Chloride 0.9% [Normal Saline] 100 ml Med 08/09/17 19:00 Active IV ASDIRECTED Vitamin B Complex Med 08/10/17 09:00 Ordered 1 each PO BID fentaNYL [Sublimaze] Med 08/09/17 21:02 Ordered 50 mcg IVPUSH Q6H PRN Blood Culture x2 Reflex Set [OM.PC] Urgent Oth 08/09/17 18:31 Ordered Resuscitation Status Routine Resus Stat 08/09/17 21:00 Ordered Medication Orders Bisacodyl (Dulcolax) mg PO BEDTIME NAVA Citalopram Hydrobromide (Celexa) 20 mg PO DAILY [facility] Docusate Sodium (Colace) mg PO BID [facility] Fentanyl (Sublimaze) 50 mcg IVPUSH Q6H PRN PRN Reason: Pain (severe 7-10) Gabapentin (Neurontin) 600 mg PO BID [facility] Lactated Ringer's (Ringers, Lactated) 1,000 mls @ 999 mls/hr IV ASDIRECTED [facility] Last Admin: 08/09/17 19:02 Dose: 999 mls/hr Sodium Chloride (Normal Saline) 100 mls @ 3 mls/sec IV ASDIRECTED [facility] Last Admin: 08/09/17 19:52 Dose: 3 mls/sec Lactated Ringer's (Ringers, Lactated) 1,000 mls @ 125 mls/hr IV ASDIRECTED [facility] Potassium Chloride 20 meq/ (Premix) 100 mls @ 50 mls/hr IV ONETIME ONE Stop: 08/09/17 23:01 Iopamidol (Isovue-300 (61%)) 100 ml IV . DIRECTED [facility] Last Admin: 08/09/17 19:52 Dose: 100 ml Montelukast Sodium (Singulair) 10 mg PO DAILY [facility] Non-Formulary Medication (Cholecalciferol (Vitamin D3) [Vitamin D3]) 5,000 unit PO DAILY [facility] Non-Formulary Medication (Cyanocobalamin (Vitamin B-12) [B-12]) 2,500 mcg SL BID [facility] Non-Formulary Medication (Levocetirizine Dihydrochloride [Levocetirizine Dihydrochloride]) 5 mg PO DAILY [facility] Non-Formulary Medication (Multivitamin [Chewable Multi Vitamin]) 2 tab CHEW DAILY [facility] Non-Formulary Medication (Norethindrone-Ethinyl Estrad [Nortrel 1-35 21 Tablet] ) 1 tab PO DAILY [facility] Ondansetron HCl (Zofran) 4 mg IV Q4H PRN PRN Reason: Nausea/Vomiting Senna/Docusate Sodium (Senna Plus) tab PO BID [facility] Vitamin B Complex (Vitamin B Complex) 1 each PO BID [facility] Assessment/Plan Comment:: CT of her abdomen shows no extension of her abscess into her abdomen. I opened the mid portion of her midline abdominal incision releasing purulent material which was sent for gram stain and culture. She is admitted for IV antibiotics and to start local wound care tomorrow.
[2017-08-09] MEDS ORDERED: Bisacodyl 5 MG Tab ONE (21:49)
[2017-08-09] MEDS ORDERED: Docusate Sodium 100 MG Cap ONE (21:49)
[2017-08-09] MEDS ORDERED: Gabapentin 300 MG Cap ONE (21:49)
[2017-08-09] MEDS: fentaNYL 100 MCG/2 ML SDV IVPUSH PRN (21:54)
[2017-08-09] MEDS: Lactated Ringers 1,000 ML IV SCH (21:56)
[2017-08-09] MEDS ORDERED: Cyanocobalamin (Vitamin B12) 1,000 MCG Tab ONE (22:10)
[2017-08-09] MEDS: Cyanocobalamin (Vitamin B12) 1,000 MCG Tab PO SCH (22:20)
[2017-08-09] MEDS: Docusate Sodium 100 MG Cap PO SCH (22:22)
[2017-08-09] MEDS: Gabapentin 300 MG Cap PO SCH (22:23)
[2017-08-09] MEDS: Bisacodyl 5 MG Tab PO SCH (22:23)
[2017-08-09] MEDS: Montelukast 10 MG Tab PO SCH (23:21)
[2017-08-09] MEDS: LEVOCETIRIZINE DIHYDROCHLORIDE 5 MG PO SCH (23:21)
[2017-08-10] MEDS: fentaNYL 100 MCG/2 ML SDV IVPUSH PRN ×4 (04:37→20:37)
[2017-08-10] MEDS: Lactated Ringers 1,000 ML IV SCH ×2 (05:52→15:00)
[2017-08-10] MEDS: Potassium Chloride 20 MEQ Tab.ER PO SCH ×4 (06:22→21:02)
[2017-08-10] MEDS: Piperacillin/Tazobactam/Dext 3.375 GM in Premix Bag 1 BAG IV SCH ×3 (07:59→20:36)
[2017-08-10] MEDS ORDERED: Montelukast 10 MG Tab PO SCH (09:00)
[2017-08-10] MEDS: traMADol 50 MG Tab PO PRN ×4 (09:25→23:00)
[2017-08-10] MEDS: Docusate Sodium 100 MG Cap PO SCH ×2 (09:26→21:00)
[2017-08-10] MEDS: Citalopram 20 MG Tab PO SCH (09:26)
[2017-08-10] MEDS: Multivitamins with Iron Tab.Chew CHEW SCH (09:26)
[2017-08-10] MEDS: NORETHINDRONE ETHINYL ESTRAD PO SCH (09:27)
[2017-08-10] MEDS: Vitamin B Complex Tab PO SCH ×2 (09:27→20:59)
[2017-08-10] MEDS: Gabapentin 300 MG Cap PO SCH ×2 (09:27→21:00)
[2017-08-10] MEDS: Cyanocobalamin (Vitamin B12) 1,000 MCG Tab PO SCH ×2 (09:27→21:00)
[2017-08-10] MEDS: Cholecalciferol (Vitamin D3) 1,000 Unit Tab PO SCH (09:29)
--- NOTE | 2017-08-10 10:19 | PCM.PN ---
- General Info Date of Service: 08/10/17 Admission Dx/Problem (Free Text): Post operative abdominal wall abscess/wound infection. Subjective Update: Improving - Review of Systems General: Reports: No Symptoms HEENT: Reports: No Symptoms Pulmonary: Reports: No Symptoms Cardiovascular: Reports: No Symptoms Gastrointestinal: Reports: Abdominal Pain Genitourinary: Reports: No Symptoms Musculoskeletal: Reports: No Symptoms Skin: Reports: No Symptoms Neurological: Reports: No Symptoms Psychiatric: Reports: No Symptoms - Patient Data Vitals - Most Recent: Last Vital Signs Temp 97.3 F 08/10/17 07:32 Pulse 77 08/10/17 07:32 Resp 16 08/10/17 07:32 BP 97/62 08/10/17 07:32 Pulse Ox 98 08/10/17 07:32 Weight - Most Recent: 155 lb I&O - Last 24 Hours: Intake & Output 08/09/17 08/10/17 08/10/17 22:59 06:59 14:59 Intake Total 360 360 650 Output Total 425 1000 Balance -65 -640 650 Lab Results Last 24 Hours: Laboratory Results - last 24 hr 08/09/17 08/09/17 08/09/17 Range/Units 19:10 19:10 19:10 WBC 13.7 H (4.5-11.0) K/uL RBC 3.66 (3.30-5.50) M/uL Hgb 10.0 L (12.0-15.0) g/dL Hct 30.5 L (36.0-48.0) % MCV 83 (80-98) fL MCH 27 (27-31) pg MCHC 33 (32-36) % Plt Count 542 H (150-400) K/uL Neut % (Auto) 81 H (36-66) % Lymph % (Auto) 10 L (24-44) % [place] % (Auto) 6 (2-6) % Eos % (Auto) 3 (2-4) % Baso % (Auto) 0 (0-1) % Sodium 140 (140-148) mmol/L Potassium 3.0 L (3.6-5.2) mmol/L Chloride 104 (100-108) mmol/L Carbon Dioxide 26 (21-32) mmol/L Anion Gap 13.0 (5.0-14.0) mmol/L BUN 11 (7-18) mg/dL Creatinine 1.0 (0.6-1.0) mg/dL Est Cr Clr Drug Dosing 64.60 mL/min Estimated GFR (MDRD) > 60 (>60) Glucose 74 (74-106) mg/dL Lactic Acid 0.5 (0.4-2.0) mmol/L Calcium 7.7 L (8.5-10.1) mg/dL Total Bilirubin 0.4 (0.2-1.0) mg/dL AST 13 L (15-37) U/L ALT 28 (12-78) U/L Alkaline Phosphatase 97 (46-116) U/L C-Reactive Protein 14.54 H (0.0-0.3) mg/dL Total Protein 6.4 (6.4-8.2) g/dL Albumin 2.2 L (3.4-5.0) g/dL Globulin 4.2 H (2.3-3.5) g/dL Albumin/Globulin Ratio 0.5 L (1.2-2.2) 08/10/17 08/10/17 Range/Units 05:08 05:08 WBC 10.0 (4.5-11.0) K/uL RBC 3.33 (3.30-5.50) M/uL Hgb 9.2 L (12.0-15.0) g/dL Hct 27.9 L (36.0-48.0) % MCV 84 (80-98) fL MCH 28 (27-31) pg MCHC 33 (32-36) % Plt Count 451 H (150-400) K/uL Neut % (Auto) 74 H (36-66) % Lymph % (Auto) 15 L (24-44) % [place] % (Auto) 7 H (2-6) % Eos % (Auto) 4 (2-4) % Baso % (Auto) 0 (0-1) % Sodium 138 L (140-148) mmol/L Potassium 2.9 L* (3.6-5.2) mmol/L Chloride 103 (100-108) mmol/L Carbon Dioxide 28 (21-32) mmol/L Anion Gap 9.9 (5.0-14.0) mmol/L BUN 7 (7-18) mg/dL Creatinine 0.8 (0.6-1.0) mg/dL Est Cr Clr Drug Dosing 80.75 mL/min Estimated GFR (MDRD) > 60 (>60) Glucose 72 L (74-106) mg/dL Lactic Acid (0.4-2.0) mmol/L Calcium 7.8 L (8.5-10.1) mg/dL Total Bilirubin (0.2-1.0) mg/dL AST (15-37) U/L ALT (12-78) U/L Alkaline Phosphatase (46-116) U/L C-Reactive Protein (0.0-0.3) mg/dL Total Protein (6.4-8.2) g/dL Albumin (3.4-5.0) g/dL Globulin (2.3-3.5) g/dL Albumin/Globulin Ratio (1.2-2.2) Ubaldo Results Last 24 Hours: Microbiology 08/09/17 20:10 Gram Stain - Final Abdomen - Drainage Med Orders - Current: Current Medications Bisacodyl (Dulcolax) 15 mg PO BEDTIME [facility] Last Admin: 08/09/17 22:23 Dose: 15 mg Cholecalciferol (Vitamin D3) 5,000 units PO DAILY [facility] Last Admin: 08/10/17 09:29 Dose: 5,000 units Citalopram Hydrobromide (Celexa) 20 mg PO DAILY [facility] Last Admin: 08/10/17 09:26 Dose: 20 mg Cyanocobalamin (Vitamin B12) 2,500 mcg PO BID [facility] Last Admin: 08/10/17 09:27 Dose: 2,500 mcg Docusate Sodium (Colace) 100 mg PO BID [facility] Last Admin: 08/10/17 09:26 Dose: 100 mg Fentanyl (Sublimaze) 50 mcg IVPUSH Q6H PRN PRN Reason: Pain (severe 7-10) Last Admin: 08/10/17 04:37 Dose: 50 mcg Gabapentin (Neurontin) 600 mg PO BID [facility] Last Admin: 08/10/17 09:27 Dose: 600 mg Sodium Chloride (Normal Saline) 100 mls @ 3 mls/sec IV ASDIRECTED [facility] Last Admin: 08/09/17 19:52 Dose: 3 mls/sec Lactated Ringer's (Ringers, Lactated) 1,000 mls @ 0 mls/hr IV ASDIRECTED [facility] Last Admin: 08/10/17 05:52 Dose: 125 mls/hr Piperacillin/Tazobactam/ (Dextrose 3.375 gm/ Premix) 50 mls @ 100 mls/hr IV Q6H [facility] Last Admin: 08/10/17 07:59 Dose: 100 mls/hr Iopamidol (Isovue-300 (61%)) 100 ml IV . DIRECTED [facility] Last Admin: 08/09/17 19:52 Dose: 100 ml Montelukast Sodium (Singulair) 10 mg PO BEDTIME [facility] Last Admin: 08/09/17 23:21 Dose: 10 mg Multivitamins/Iron (Child Chew Iron) 2 tab CHEW DAILY [facility] Last Admin: 08/10/17 09:26 Dose: 2 tab Levocetirizine Dihydrochloride 5mg Pom 5 mg PO BEDTIME [facility] Last Admin: 08/09/17 23:21 Dose: 5 mg Norethindrone- Ethinyl Estrad [ Nortrel 1-35 21 Tablet] Pom 1 tab PO DAILY [facility] Last Admin: 08/10/17 09:27 Dose: 1 tab Ondansetron HCl (Zofran) 4 mg IV Q4H PRN PRN Reason: Nausea/Vomiting Potassium Chloride (Klor-Con M20) 40 meq PO QID [facility] Stop: 08/10/17 22:00 Last Admin: 08/10/17 09:28 Dose: 40 meq Ranitidine HCl (Zantac) 150 mg PO BID [facility] Last Admin: 08/10/17 09:28 Dose: 150 mg Senna/Docusate Sodium (Senna Plus) 2 tab PO BID [facility] Last Admin: 08/10/17 09:27 Dose: 2 tab Tramadol HCl (Ultram) 50 mg PO Q4H PRN PRN Reason: Abdominal Pain Last Admin: 08/10/17 09:25 Dose: 50 mg Vitamin B Complex (Vitamin B Complex) 1 each PO BID [facility] Last Admin: 08/10/17 09:27 Dose: 1 each Discontinued Medications Bacitracin (Bacitracin Oint 1 Gm) 1 dose TOP ONETIME ONE Stop: 08/09/17 19:23 Last Admin: 08/09/17 20:34 Dose: Not Given Bisacodyl (Dulcolax) Confirm Administered Dose 15 mg .ROUTE .STK-MED ONE Stop: 08/09/17 21:50 Last Admin: 08/10/17 00:16 Dose: Not Given Cyanocobalamin (Vitamin B12) Confirm Administered Dose 3,000 mcg .ROUTE .STK- MED ONE Stop: 08/09/17 22:11 Last Admin: 08/10/17 00:16 Dose: Not Given Docusate Sodium (Colace) Confirm Administered Dose 100 mg .ROUTE .STK-MED ONE Stop: 08/09/17 21:50 Last Admin: 08/10/17 00:16 Dose: Not Given Gabapentin (Neurontin) Confirm Administered Dose 600 mg .ROUTE .STK-MED ONE Stop: 08/09/17 21:50 Last Admin: 08/10/17 00:16 Dose: Not Given Hydromorphone HCl (Dilaudid) 1 mg IVPUSH ONETIME ONE Stop: 08/09/17 18:32 Last Admin: 08/09/17 19:02 Dose: 1 mg Lactated Ringer's (Ringers, Lactated) 1,000 mls @ 999 mls/hr IV ASDIRECTED [facility] Last Admin: 08/09/17 19:02 Dose: 999 mls/hr Potassium Chloride 20 meq/ (Premix) 100 mls @ 50 mls/hr IV ONETIME ONE Stop: 08/09/17 23:01 Last Admin: 08/09/17 22:39 Dose: 50 mls/hr Montelukast Sodium (Singulair) 10 mg PO DAILY [facility] Ondansetron HCl (Zofran) 4 mg IVPUSH ONETIME ONE Stop: 08/09/17 18:32 Last Admin: 08/09/17 19:04 Dose: 4 mg Senna/Docusate Sodium (Senna Plus) Confirm Administered Dose 2 tab .ROUTE .STK- MED ONE Stop: 08/09/17 21:50 Last Admin: 08/10/17 00:16 Dose: Not Given - Exam General: Alert, Oriented, Cooperative, No Acute Distress Lungs: Clear to Auscultation, Normal Respiratory Effort Cardiovascular: Regular Rate, Regular Rhythm GI/Abdominal Exam: Normal Bowel Sounds, Soft, Other (Open midline wound, some fluid in bottom of incision. ) Back Exam: Normal Inspection Extremities: Normal Inspection Skin: Warm, Dry Neurological: No New Focal Deficit Psy/Mental Status: Alert, Normal Affect, Normal Mood - Problem List & Annotations (1) Wound infection after surgery SNOMED Code(s): 07690638, 315554220 Code(s): T81.4XXA - INFECTION FOLLOWING A PROCEDURE, INITIAL ENCOUNTER Status: Acute Current Visit: Yes - Problem List Review Problem List Initiated/Reviewed/Updated: Yes - My Orders Last 24 Hours: My Active Orders 08/10/17 06:00 Potassium Chloride [Klor-Con M20] 40 meq PO QID 08/10/17 08:00 Piperacillin/Tazobactam/Dext [Zosyn in Dextrose Iso-Osmotic 3.375 GM] 3.375 gm Premix Bag 1 bag IV Q6H 08/10/17 09:06 traMADol [Ultram] 50 mg PO Q4H PRN 08/10/17 10:10 Wound Care [RC] Q12H 08/10/17 Breakfast Clear Liquid Diet [DIET] 08/11/17 05:11 CBC W/O DIFF,HEMOGRAM [HEME] Routine 08/12/17 05:11 BASIC METABOLIC PANEL,BMP [CHEM] AM 08/13/17 05:11 BASIC METABOLIC PANEL,BMP [CHEM] AM - Assessment Assessment:: Gram positive cocci on gram stain of purulent fluid. Her WBC is now normal. She is now afebrile. Her abdomen is looking better, the erythema is significantly improved. She says she does not have adequate pain control. Her potassium is 2.9. - Plan Plan:: CT of her abdomen shows no extension of her abscess into her abdomen. I opened the mid portion of her midline abdominal incision releasing purulent material which was sent for gram stain and culture. She is admitted for IV antibiotics and to start local wound care tomorrow. 08/10/2017--Begin BID local wound care. Replace her potassium.
[2017-08-10] MEDS: Bisacodyl 5 MG Tab PO SCH (20:59)
[2017-08-10] MEDS: LEVOCETIRIZINE DIHYDROCHLORIDE 5 MG PO SCH (21:00)
[2017-08-10] MEDS: Montelukast 10 MG Tab PO SCH (21:01)
[2017-08-11] MEDS: Piperacillin/Tazobactam/Dext 3.375 GM in Premix Bag 1 BAG IV SCH ×3 (01:23→14:16)
[2017-08-11] MEDS: fentaNYL 100 MCG/2 ML SDV IVPUSH PRN ×3 (01:23→09:46)
[2017-08-11] MEDS: traMADol 50 MG Tab PO PRN ×3 (03:50→13:21)
[2017-08-11] MEDS: Citalopram 20 MG Tab PO SCH (08:46)
[2017-08-11] MEDS: Docusate Sodium 100 MG Cap PO SCH (08:46)
[2017-08-11] MEDS: NORETHINDRONE ETHINYL ESTRAD PO SCH (08:47)
[2017-08-11] MEDS: Gabapentin 300 MG Cap PO SCH (08:47)
[2017-08-11] MEDS: Cyanocobalamin (Vitamin B12) 1,000 MCG Tab PO SCH (08:48)
[2017-08-11] MEDS: Cholecalciferol (Vitamin D3) 1,000 Unit Tab PO SCH (08:49)
[2017-08-11] MEDS: Multivitamins with Iron Tab.Chew CHEW SCH (08:53)
[2017-08-11] MEDS: Vitamin B Complex Tab PO SCH (09:58)
[2017-08-11 12:03] VITALS: BP 82/46
--- NOTE | 2017-08-11 13:04 | PCM.DCSUM1 ---
Discharge Summary - Hospital Course Free Text/Narrative:: This 46 year old white female is S/P a RNY GBP in 2010. Earlier this month she came in with a small bowel obstruction which required a resection. Two days ago she was at home, not feeling well, when she felt fluid on her shirt. Purulent material was draining from her midline incision. She came in to the hospital where a CT of her abdomen/pelvis showed no intra abdominal extension. She was draining in the ER. Gram stain shows GM + cocci and GM - rods. Culture is growing Staph. Her can care for her incision. A low potassium is now corrected (2.9 to 4.0 now). She is discharged at this time in good condition. She complains of pain but has a problem with narcotic needs. Brief History: See above narrative - Discharge Data Discharge Date: 08/11/17 Discharge Disposition: Home, Self-Care 01 Condition: Fair - Discharge Diagnosis/Problem(s) (1) Wound infection after surgery SNOMED Code(s): 25021966, 505682834 ICD Code: T81.4XXA - INFECTION FOLLOWING A PROCEDURE, INITIAL ENCOUNTER Status: Acute Current Visit: Yes - Patient Summary/Data Operative Procedure(s) Performed: Drained abdominal subcutaneous abscess in the ER. Hospital Course: See above narrative. - Patient Instructions Diet: Usual Diet as Tolerated Activity: No Lifting Over 10 Pounds, No Strenuous Activities Activity, Other: Wound care as instructed BID. Driving, Other: Do not drive while taking narcotic pain medication. Showering/Bathing: May Shower Notify Provider of: Fever, Increased Pain, Swelling and Redness, Drainage, Nausea and/or Vomiting - Discharge Plan Prescriptions/Med Rec: oxyCODONE HCl/Acetaminophen [Percocet 5-325 mg Tablet] 1 - 2 each PO BID PRN # 30 tablet PRN Reason: Abdominal Pain Home Medications: Home Meds Docusate Sodium [Colace] 1 tab PO BID 04/25/13 [History] Vitamin B Complex [B Complex] 1 each PO BID 04/25/13 [History] Bisacodyl [Dulcolax] 3 tab PO BEDTIME 01/25/14 [History] Cholecalciferol (Vitamin D3) [Vitamin D3] 5,000 unit PO DAILY 01/25/14 [History] Cyanocobalamin (Vitamin B-12) [B-12] 2,500 mcg SL BID 01/25/14 [History] Gabapentin [Neurontin] 600 mg PO BID 01/25/14 [History] Multivitamin [Chewable Multi Vitamin] 2 tab CHEW DAILY 10/21/14 [History] Citalopram [Citalopram HBr] 20 mg PO DAILY 07/22/17 [History] Levocetirizine Dihydrochloride 5 mg PO DAILY 07/22/17 [History] Montelukast Sodium 10 mg PO DAILY 07/22/17 [History] Sennosides/Docusate Sodium [Senokot-S Tablet] 2 each PO BID #100 tablet [Rx] traMADol [Ultram] 50 mg PO Q4H PRN #40 tablet 08/02/17 [Rx] Celecoxib 200 mg PO DAILY 08/09/17 [History] Linaclotide [Linzess] 1 cap PO DAILY 08/09/17 [History] Norethindrone-Ethinyl Estrad [Nortrel 1-35 21 Tablet] 1 tab PO DAILY 08/09/17 [ History] Ranitidine HCl [Ranitidine] 150 mg PO BID 08/09/17 [History] Iopamidol [Isovue-300 (61%)] 100 ml IV . DIRECTED bottle 08/11/17 [Rx] oxyCODONE HCl/Acetaminophen [Percocet 5-325 mg Tablet] 1 - 2 each PO BID PRN # 30 tablet 08/11/17 [Rx] Forms: ED Department Discharge Referrals: Sarah Bailey, [facility]PES[facility] [Primary Care Provider] - (See her and or Dr. Russ on 08/13/2017 in [facility]. ) - Discharge Summary/Plan Comment DC Time >30 min.: Yes Discharge Summary/Plan Comment: See above narrative. - Patient Data Vitals - Most Recent: Last Vital Signs Temp 97.5 F 08/11/17 11:15 Pulse 72 08/11/17 11:15 Resp 16 08/11/17 11:15 BP 82/46 L 08/11/17 11:15 Pulse Ox 93 L 08/11/17 11:15 Weight - Most Recent: 155 lb I&O - Last 24 hours: Intake & Output 08/10/17 08/11/17 08/11/17 22:59 06:59 14:59 Intake Total 3023 564 170 Output Total 2291 1650 400 Balance 1723 -1086 -230 Lab Results - Last 24 hrs: Laboratory Results - last 24 hr 08/11/17 08/11/17 Range/Units 05:55 05:55 WBC 9.4 (4.5-11.0) K/uL RBC 3.53 (3.30-5.50) M/uL Hgb 9.5 L (12.0-15.0) g/dL Hct 30.0 L (36.0-48.0) % MCV 85 (80-98) fL MCH 27 (27-31) pg MCHC 32 (32-36) % Plt Count 500 H (150-400) K/uL Sodium 138 L (140-148) mmol/L Potassium 4.0 (3.6-5.2) mmol/L Chloride 103 (100-108) mmol/L Carbon Dioxide 28 (21-32) mmol/L Anion Gap 11.0 (5.0-14.0) mmol/L BUN 5 L (7-18) mg/dL Creatinine 0.8 (0.6-1.0) mg/dL Est Cr Clr Drug Dosing 80.75 mL/min Estimated GFR (MDRD) > 60 (>60) Glucose 80 (74-106) mg/dL Calcium 7.9 L (8.5-10.1) mg/dL [place] Results - Last 24 hrs: Microbiology 08/09/17 20:10 Gram Stain - Final Abdomen - Drainage Wound Culture - Preliminary 08/09/17 19:00 Aerobic Blood Culture - Preliminary Blood - Venous - Iv Start NO GROWTH AFTER 1 DAY Anaerobic Blood Culture - Preliminary NO GROWTH AFTER 1 DAY 08/09/17 19:10 Aerobic Blood Culture - Preliminary Blood - Arm, Left NO GROWTH AFTER 1 DAY Anaerobic Blood Culture - Preliminary NO GROWTH AFTER 1 DAY Med Orders - Current: Current Medications Bisacodyl (Dulcolax) 15 mg PO BEDTIME [facility] Last Admin: 08/10/17 20:59 Dose: 15 mg Cholecalciferol (Vitamin D3) 5,000 units PO DAILY [facility] Last Admin: 08/11/17 08:49 Dose: 5,000 units Citalopram Hydrobromide (Celexa) 20 mg PO DAILY [facility] Last Admin: 08/11/17 08:46 Dose: 20 mg Cyanocobalamin (Vitamin B12) 2,500 mcg PO BID [facility] Last Admin: 08/11/17 08:48 Dose: 2,500 mcg Docusate Sodium (Colace) 100 mg PO BID [facility] Last Admin: 08/11/17 08:46 Dose: 100 mg Fentanyl (Sublimaze) 50 mcg IVPUSH Q4H PRN PRN Reason: Pain (severe 7-10) Last Admin: 08/11/17 09:46 Dose: 50 mcg Gabapentin (Neurontin) 600 mg PO BID [facility] Last Admin: 08/11/17 08:47 Dose: 600 mg Sodium Chloride (Normal Saline) 100 mls @ 3 mls/sec IV ASDIRECTED [facility] Last Admin: 08/09/17 19:52 Dose: 3 mls/sec Lactated Ringer's (Ringers, Lactated) 1,000 mls @ 0 mls/hr IV ASDIRECTED [facility] Last Admin: 08/10/17 15:00 Dose: 25 mls/hr Piperacillin/Tazobactam/ (Dextrose 3.375 gm/ Premix) 50 mls @ 100 mls/hr IV Q6H [facility] Last Admin: 08/11/17 07:40 Dose: 100 mls/hr Iopamidol (Isovue-300 (61%)) 100 ml IV . DIRECTED [facility] Last Admin: 08/09/17 19:52 Dose: 100 ml Montelukast Sodium (Singulair) 10 mg PO BEDTIME [facility] Last Admin: 08/10/17 21:01 Dose: 10 mg Multivitamins/Iron (Child Chew Iron) 2 tab CHEW DAILY [facility] Last Admin: 08/11/17 08:53 Dose: 2 tab Levocetirizine Dihydrochloride 5mg Pom 5 mg PO BEDTIME [facility] Last Admin: 08/10/17 21:00 Dose: 5 mg Norethindrone- Ethinyl Estrad [ Nortrel 1-35 21 Tablet] Pom 1 tab PO DAILY [facility] Last Admin: 08/11/17 08:47 Dose: 1 tab Ondansetron HCl (Zofran) 4 mg IV Q4H PRN PRN Reason: Nausea/Vomiting Ranitidine HCl (Zantac) 150 mg PO BID [facility] Last Admin: 08/11/17 08:49 Dose: 150 mg Senna/Docusate Sodium (Senna Plus) 2 tab PO BID [facility] Last Admin: 08/11/17 08:48 Dose: 2 tab Tramadol HCl (Ultram) 50 mg PO Q4H PRN PRN Reason: Abdominal Pain Last Admin: 08/11/17 07:44 Dose: 50 mg Vitamin B Complex (Vitamin B Complex) 1 each PO BID [facility] Last Admin: 08/11/17 09:58 Dose: 1 each Discontinued Medications Bacitracin (Bacitracin Oint 1 Gm) 1 dose TOP ONETIME ONE Stop: 08/09/17 19:23 Last Admin: 08/09/17 20:34 Dose: Not Given Bisacodyl (Dulcolax) Confirm Administered Dose 15 mg .ROUTE .STK-MED ONE Stop: 08/09/17 21:50 Last Admin: 08/10/17 00:16 Dose: Not Given Cyanocobalamin (Vitamin B12) Confirm Administered Dose 3,000 mcg .ROUTE .STK- MED ONE Stop: 08/09/17 22:11 Last Admin: 08/10/17 00:16 Dose: Not Given Docusate Sodium (Colace) Confirm Administered Dose 100 mg .ROUTE .STK-MED ONE Stop: 08/09/17 21:50 Last Admin: 08/10/17 00:16 Dose: Not Given Fentanyl (Sublimaze) 50 mcg IVPUSH Q6H PRN PRN Reason: Pain (severe 7-10) Last Admin: 08/10/17 10:46 Dose: 50 mcg Gabapentin (Neurontin) Confirm Administered Dose 600 mg .ROUTE .STK-MED ONE Stop: 08/09/17 21:50 Last Admin: 08/10/17 00:16 Dose: Not Given Hydromorphone HCl (Dilaudid) 1 mg IVPUSH ONETIME ONE Stop: 08/09/17 18:32 Last Admin: 08/09/17 19:02 Dose: 1 mg Lactated Ringer's (Ringers, Lactated) 1,000 mls @ 999 mls/hr IV ASDIRECTED [facility] Last Admin: 08/09/17 19:02 Dose: 999 mls/hr Potassium Chloride 20 meq/ (Premix) 100 mls @ 50 mls/hr IV ONETIME ONE Stop: 08/09/17 23:01 Last Admin: 08/09/17 22:39 Dose: 50 mls/hr Montelukast Sodium (Singulair) 10 mg PO DAILY [facility] Ondansetron HCl (Zofran) 4 mg IVPUSH ONETIME ONE Stop: 08/09/17 18:32 Last Admin: 08/09/17 19:04 Dose: 4 mg Potassium Chloride (Klor-Con M20) 40 meq PO QID [facility] Stop: 08/10/17 22:00 Last Admin: 08/10/17 21:02 Dose: 40 meq Senna/Docusate Sodium (Senna Plus) Confirm Administered Dose 2 tab .ROUTE .STK- MED ONE Stop: 08/09/17 21:50 Last Admin: 08/10/17 00:16 Dose: Not Given
== END 2017-08-11 14:00 | disposition home or self-care (01) | DRG 920 ==
LOC: JP.ED 17:44 → JP.2SS 21:00
PROVIDERS: ADMIT Surgery; ATTEND Surgery
PROC: 0H97XZX Drainage of Abdomen Skin, External Approach, Diagnostic (ICD-10-PCS; principal; 2017-08-09)
DX: T81.31XA Disruption of external operation (surgical) wound, not elsewhere classified, initial encounter (principal); T81.4XXA Infection following a procedure, initial encounter; B95.61 Methicillin susceptible Staphylococcus aureus infection as the cause of diseases classified elsewhere; E87.6 Hypokalemia; Z98.84 Bariatric surgery status; Z98.0 Intestinal bypass and anastomosis status; F32.9 Major depressive disorder, single episode, unspecified; M19.90 Unspecified osteoarthritis, unspecified site; Z87.891 Personal history of nicotine dependence; Z88.5 Allergy status to narcotic agent; Z88.8 Allergy status to other drugs, medicaments and biological substances
CPT/HCPCS: 36415; 74177; 80048; 80053; 83605; 85025; 85027; 86140; 87040; 87070; 87077; 87186; 87205; 96361; 96374; 96375; 99285-25; A9270-GY; J1170; J2405; J2543; J3010; J3480; J7030; J7120; Q9967

== ENCOUNTER 2017-12-20 11:37 | Emergency (ER) | payer OTHER ==
[2017-12-20 12:43] VITALS: BP 114/64
--- NOTE | 2017-12-20 13:12 | EDM.PDOC ---
ED HPI GENERAL MEDICAL PROBLEM - General Chief Complaint: Lower Extremity Injury/Pain Stated Complaint: KNEE AND BACK PAIN Time Seen by Provider: 12/20/17 13:00 Source of Information: Reports: Patient History Limitations: Reports: No Limitations - History of Present Illness INITIAL COMMENTS - FREE TEXT/NARRATIVE: 47-year-old female was going up the stairs last night when she tripped over her dog striking her right knee hard on the step. She now has pain on the anterior and lateral aspect of the right knee, and pain with weightbearing. No significant swelling or bruising. She also slightly pulled her back when she was rotating and falling, but did not strike her back. No other injury. Severity: Mild Associated Symptoms: Reports: Other (Slight back pain) Right Knee Pain Score (Numeric/FACES): 7 - Related Data Allergies Allergy/AdvReac Type Severity Reaction Status Date / Time tioconazole [From Monistat 1] Allergy Rash Verified 12/20/17 12:47 hydromorphone HCl AdvReac Nausea Verified 12/20/17 12:47 [From Dilaudid] Home Meds: Home Meds Docusate Sodium [Colace] 1 tab PO BID 04/25/13 [History] Vitamin B Complex [B Complex] 1 each PO BID 04/25/13 [History] Bisacodyl [Dulcolax] 3 tab PO BEDTIME 01/25/14 [History] Cholecalciferol (Vitamin D3) [Vitamin D3] 5,000 unit PO DAILY 01/25/14 [History] Cyanocobalamin (Vitamin B-12) [B-12] 2,500 mcg SL BID 01/25/14 [History] Gabapentin [Neurontin] 600 mg PO BID 01/25/14 [History] Multivitamin [Chewable Multi Vitamin] 2 tab CHEW DAILY 10/21/14 [History] Citalopram [Citalopram HBr] 20 mg PO DAILY 07/22/17 [History] Levocetirizine Dihydrochloride 5 mg PO DAILY 07/22/17 [History] Montelukast Sodium 10 mg PO DAILY 07/22/17 [History] Linaclotide [Linzess] 1 cap PO DAILY 08/09/17 [History] Norethindrone-Ethinyl Estrad [Nortrel 1-35 21 Tablet] 1 tab PO DAILY 08/09/17 [ History] Hyoscyamine [Levsin] 1 tab PO DAILY 12/20/17 [History] Metoclopramide HCl 1 tab PO ASDIRECTED 12/20/17 [History] Omeprazole 1 tab PO DAILY 12/20/17 [History] Sennosides/Docusate Sodium [Senokot-S Tablet] 4 each PO BID 12/20/17 [History] Past Medical History HEENT History: Reports: Allergic Rhinitis, Otitis Media Cardiovascular History: Reports: High Cholesterol Gastrointestinal History: Reports: Bowel Obstruction, Cholelithiasis, Chronic Constipation 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 ASSET History: Reports: Musculoskeletal History: Reports: Osteoarthritis, Other (See Below) Other Musculoskeletal History: carpal tunnel Neurological History: Reports: Other (See Below) Other Neuro History: restless leg Psychiatric History: Reports: Depression Endocrine/Metabolic History: Reports: Vitamin D Deficiency Hematologic History: Reports: Anemia, B12 Deficiency, Iron Deficiency - Past Surgical History GI Surgical History: Reports: Bariatric Procedure, Cholecystectomy, Colon, Colonoscopy, EGD, Hernia, Abdominal Female Surgical History: Reports: Section Musculoskeletal Surgical History: Reports: Arthroscopic Knee, Ganglion Cyst, Shoulder Surgery Social & Family History - Family History Family Medical History: Noncontributory - Tobacco Use Smoking Status *Q: Never Smoker - Caffeine Use Caffeine Use: Reports: Coffee - Alcohol Use Days Per Week of Alcohol Use: 1 Number of Drinks Per Day: 1 Total Drinks Per Week: 1 - Recreational Drug Use Recreational Drug Use: No Review of Systems - Review of Systems Review Of Systems: See Below Constitutional: Denies: Fever Respiratory: Denies: Shortness of Breath GI/Abdominal: Denies: Abdominal Pain, Nausea, Vomiting Skin: Denies: Bruising Neurological: Denies: Paresthesia Psychiatric: Reports: No Symptoms ED EXAM, GENERAL - Physical Exam Exam: See Below Exam Limited By: No Limitations General Appearance: Alert, No Apparent Distress Head: Atraumatic Respiratory/Chest: No Respiratory Distress Extremities: Other (Exam otherwise limited to the lower extremities. The knees looks symmetric, there is no significant swelling or effusion of the injured knee. She is very tender to palpation along the lateral and anterolateral knee, ligaments are intact. She has some increased pain with valgus stress to the knee.) Course - Vital Signs Last Recorded V/S: Last Vital Signs Temp 96.4 F 12/20/17 12:46 Pulse 72 12/20/17 12:46 Resp 15 12/20/17 12:46 BP 114/64 12/20/17 12:46 Pulse Ox 99 12/20/17 12:46 - Orders/Labs/Meds Orders: Active Orders 24 hr Category Date Time Status Knee 3V Rt [CR] Stat Exams 12/20/17 13:07 Taken - Re-Assessments/Exams Free Text/Narrative Re-Assessment/Exam: 12/20/17 13:24 Right knee x-ray was obtained. 12/20/17 13:31 Knee x-ray was negative. A four-inch Juan Miguel wrap was applied to the knee for support and she's can increase activity as tolerated. Recheck in 3-4 days if not improving satisfactorily. Departure - Departure Time of Disposition: 13:46 Disposition: Home, Self-Care 01 Condition: Good Clinical Impression: Contusion of knee Qualifiers: Encounter type: initial encounter Laterality: right Qualified Code(s): S80.01XA - Contusion of right knee, initial encounter - Discharge Information Instructions: Contusion, [id number] Referrals: PCP,None [Primary Care Provider] - Forms: ED Department Discharge Care Plan Goals: Juan Miguel wrap knee for support, Tylenol and naproxen should help with pain. Increase activity as tolerated and recheck in 3-4 days if not improving satisfactorily. - My Orders Last 24 Hours: My Active Orders 12/20/17 13:07 Knee 3V Rt [CR] Stat - Assessment/Plan Last 24 Hours: My Active Orders 12/20/17 13:07 Knee 3V Rt [CR] Stat
--- NOTE | 2017-12-22 08:48 | CR ---
Knee 3V Rt CLINICAL HISTORY: Fall FINDINGS: No acute fracture or dislocation is noted. There are no osseous lesions. Articular surfaces are smooth Impression: Negative
== END 2017-12-20 13:45 | disposition home or self-care (01) ==
LOC: JP.ED 11:37
DX: S80.01XA Contusion of right knee, initial encounter (principal); E78.00 Pure hypercholesterolemia, unspecified; M19.90 Unspecified osteoarthritis, unspecified site; Z79.899 Other long term (current) drug therapy; Z88.8 Allergy status to other drugs, medicaments and biological substances; Z88.6 Allergy status to analgesic agent; W01.198A Fall on same level from slipping, tripping and stumbling with subsequent striking against other object, initial encounter
CPT/HCPCS: 73562-26-RT; 73562-RT; 99284

== ENCOUNTER 2018-05-31 19:29 | Emergency (ER) | payer OTHER ==
[2018-05-31] MEDS ORDERED: Sodium Chloride 0.9% 10 ML Syringe FLUSH PRN (20:01)
[2018-05-31] MEDS ORDERED: fentaNYL 100 MCG/2 ML SDV IVPUSH ONE (20:01)
--- NOTE | 2018-05-31 20:05 | EDM.PDOC ---
ED HPI GENERAL MEDICAL PROBLEM - General Chief Complaint: Abdominal Pain Stated Complaint: LT SIDE ABD PAIN Time Seen by Provider: 05/31/18 19:58 Source of Information: Reports: Patient, Family, RN Notes Reviewed History Limitations: Reports: No Limitations - History of Present Illness INITIAL COMMENTS - FREE TEXT/NARRATIVE: 47-year-old female presents emergency department day complaint of left-sided abdominal pain, she states she injured herself after lifting at work sudden onset of left-sided abdominal pain does have a history of multiple abdominal surgeries Left Abdominal Pain Score (Numeric/FACES): 6 - Related Data Allergies Allergy/AdvReac Type Severity Reaction Status Date / Time tioconazole [From Monistat 1] Allergy Rash Verified 05/31/18 19:46 hydromorphone HCl AdvReac Nausea Verified 05/31/18 19:46 [From Dilaudid] Home Meds: Home Meds Docusate Sodium [Colace] 1 tab PO BID 04/25/13 [History] Vitamin B Complex [B Complex] 1 each PO BID 04/25/13 [History] Bisacodyl [Dulcolax] 3 tab PO BEDTIME 01/25/14 [History] Cholecalciferol (Vitamin D3) [Vitamin D3] 5,000 unit PO DAILY 01/25/14 [History] Cyanocobalamin (Vitamin B-12) [B-12] 2,500 mcg SL BID 01/25/14 [History] Gabapentin [Neurontin] 600 mg PO BID 01/25/14 [History] Multivitamin [Chewable Multi Vitamin] 2 tab CHEW DAILY 10/21/14 [History] Citalopram [Citalopram HBr] 20 mg PO DAILY 07/22/17 [History] Levocetirizine Dihydrochloride 5 mg PO DAILY 07/22/17 [History] Montelukast Sodium 10 mg PO DAILY 07/22/17 [History] Norethindrone-Ethinyl Estrad [Nortrel 1-35 21 Tablet] 1 tab PO DAILY 08/09/17 [ History] Omeprazole 40 mg PO DAILY 12/20/17 [History] Sennosides/Docusate Sodium [Senokot-S Tablet] 4 each PO BID 12/20/17 [History] Lubiprostone [Amitiza] 24 mcg PO BID 05/19/18 [History] Past Medical History HEENT History: Reports: Allergic Rhinitis, Otitis Media Cardiovascular History: Reports: High Cholesterol Gastrointestinal History: Reports: Bowel Obstruction, Cholelithiasis, Chronic Constipation, GERD, Irritable Bowel 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: Musculoskeletal History: Reports: Osteoarthritis, Other (See Below) Other Musculoskeletal History: carpal tunnel Neurological History: Reports: Other (See Below) Other Neuro History: restless leg Psychiatric History: Reports: Depression Endocrine/Metabolic History: Reports: Diabetes, Type II, Vitamin D Deficiency Hematologic History: Reports: Anemia, B12 Deficiency, Folic Acid, Iron Deficiency - Infectious Disease History Infectious Disease History: Reports: Chicken Pox - Past Surgical History GI Surgical History: Reports: Bariatric Procedure, Cholecystectomy, Colon, Colonoscopy, EGD, Hernia, Abdominal Female Surgical History: Reports: Section Musculoskeletal Surgical History: Reports: Arthroscopic Knee, Ganglion Cyst, Shoulder Surgery Social & Family History - Family History Family Medical History: Noncontributory - Tobacco Use Smoking Status *Q: Never Smoker - Caffeine Use Caffeine Use: Reports: None - Recreational Drug Use Recreational Drug Use: No ED ROS GENERAL - Review of Systems Review Of Systems: See Below Constitutional: Reports: No Symptoms HEENT: Reports: No Symptoms Respiratory: Reports: No Symptoms Cardiovascular: Reports: No Symptoms GI/Abdominal: Reports: Abdominal Pain. Denies: Nausea, Vomiting : Reports: No Symptoms Musculoskeletal: Reports: No Symptoms ED EXAM, GI/ABD - Physical Exam Exam: See Below Exam Limited By: No Limitations General Appearance: Alert, WD/WN, No Apparent Distress Respiratory/Chest: No Respiratory Distress, Lungs Clear, Normal Breath Sounds, No Accessory Muscle Use, Chest Non-Tender Cardiovascular: Regular Rate, Rhythm, No Murmur GI/Abdominal Exam: Normal Bowel Sounds, Soft, No Distention, Tender (Left side) Course - Vital Signs Last Recorded V/S: Last Vital Signs Temp 99.3 F 05/31/18 19:51 Pulse 66 05/31/18 21:17 Resp 16 05/31/18 21:17 BP 106/69 05/31/18 21:17 Pulse Ox 98 05/31/18 21:17 - Orders/Labs/Meds Orders: Active Orders 24 hr Category Date Time Status Peripheral IV Care [RC] . DIRECTED Care 05/31/18 20:02 Active Iopamidol [Isovue-300 (61%)] Med 05/31/18 20:15 Active 100 ml IV . DIRECTED Lactated Ringers [Ringers, Lactated] 1,000 ml Med 05/31/18 20:15 Active IV ASDIRECTED Sodium Chloride 0.9% [Normal Saline] 81 ml Med 05/31/18 20:15 Active IV ASDIRECTED Sodium Chloride 0.9% [Saline Flush] Med 05/31/18 20:01 Active 10 ml FLUSH ASDIRECTED PRN Peripheral IV Insertion Adult [OM.PC] Urgent Oth 05/31/18 20:01 Ordered Medication Orders Lactated Ringer's (Ringers, Lactated) 1,000 mls @ 999 mls/hr IV ASDIRECTED [facility] Last Admin: 05/31/18 20:18 Dose: 999 mls/hr Sodium Chloride (Normal Saline) 81 mls @ 3 mls/sec IV ASDIRECTED NAVA Last Admin: 05/31/18 20:46 Dose: 3 mls/sec Iopamidol (Isovue-300 (61%)) 100 ml IV . DIRECTED [facility] Last Admin: 05/31/18 20:46 Dose: 100 ml Sodium Chloride (Saline Flush) 10 ml FLUSH ASDIRECTED PRN PRN Reason: Keep Vein Open Last Admin: 05/31/18 20:46 Dose: 10 ml Labs: Laboratory Tests 05/31/18 05/31/18 05/31/18 Range/Units 20:14 20:14 20:14 WBC 7.0 (4.5-11.0) K/uL RBC 4.65 (3.30-5.50) M/uL Hgb 13.4 D (12.0-15.0) g/dL Hct 39.9 (36.0-48.0) % MCV 86 (80-98) fL MCH 29 (27-31) pg MCHC 34 (32-36) % Plt Count 299 (150-400) K/uL Neut % (Auto) 57 (36-66) % Lymph % (Auto) 34 (24-44) % [place] % (Auto) 5 (2-6) % Eos % (Auto) 4 (2-4) % Baso % (Auto) 0 (0-1) % Sodium 139 L (140-148) mmol/L Potassium 3.4 L (3.6-5.2) mmol/L Chloride 109 H (100-108) mmol/L Carbon Dioxide 22 (21-32) mmol/L Anion Gap 11.4 (5.0-14.0) mmol/L BUN 11 D (7-18) mg/dL Creatinine 0.9 (0.6-1.0) mg/dL Est Cr Clr Drug Dosing 71.03 mL/min Estimated GFR (MDRD) > 60 (>60) Glucose 81 (74-106) mg/dL Lactic Acid 0.7 (0.4-2.0) mmol/L Calcium 8.0 L (8.5-10.1) mg/dL Total Bilirubin 0.3 (0.2-1.0) mg/dL AST 14 L (15-37) U/L ALT 27 (12-78) U/L Alkaline Phosphatase 87 (46-116) U/L Total Protein 6.3 L (6.4-8.2) g/dL Albumin 3.4 (3.4-5.0) g/dL Globulin 2.9 (2.3-3.5) g/dL Albumin/Globulin Ratio 1.2 (1.2-2.2) Lipase 164 (73-393) U/L Urine Color Urine Appearance Urine pH (4.5-8.0) Ur Specific [place] (1.008-1.030) Urine Protein (NEGATIVE) mg/dL Urine Glucose (UA) (NEGATIVE) mg/dL Urine Ketones (NEGATIVE) mg/dL Urine Occult Blood (NEGATIVE) Urine Nitrite (NEGATIVE) Urine Bilirubin (NEGATIVE) Urine Urobilinogen (NORMAL) mg/dL Ur Leukocyte Esterase (NEGATIVE) Urine RBC (0-5) Urine WBC (0-5) Ur Epithelial Cells Amorphous Sediment Urine Bacteria Urine Mucus 05/31/18 Range/Units 21:48 WBC (4.5-11.0) K/uL RBC (3.30-5.50) M/uL Hgb (12.0-15.0) g/dL Hct (36.0-48.0) % MCV (80-98) fL MCH (27-31) pg MCHC (32-36) % Plt Count (150-400) K/uL Neut % (Auto) (36-66) % Lymph % (Auto) (24-44) % [place] % (Auto) (2-6) % Eos % (Auto) (2-4) % Baso % (Auto) (0-1) % Sodium (140-148) mmol/L Potassium (3.6-5.2) mmol/L Chloride (100-108) mmol/L Carbon Dioxide (21-32) mmol/L Anion Gap (5.0-14.0) mmol/L BUN (7-18) mg/dL Creatinine (0.6-1.0) mg/dL Est Cr Clr Drug Dosing mL/min Estimated GFR (MDRD) (>60) Glucose (74-106) mg/dL Lactic Acid (0.4-2.0) mmol/L Calcium (8.5-10.1) mg/dL Total Bilirubin (0.2-1.0) mg/dL AST (15-37) U/L ALT (12-78) U/L Alkaline Phosphatase (46-116) U/L Total Protein (6.4-8.2) g/dL Albumin (3.4-5.0) g/dL Globulin (2.3-3.5) g/dL Albumin/Globulin Ratio (1.2-2.2) Lipase (73-393) U/L Urine Color Yellow Urine Appearance Clear Urine pH 5.0 (4.5-8.0) Ur Specific [place] 1.015 (1.008-1.030) Urine Protein Negative (NEGATIVE) mg/dL Urine Glucose (UA) Normal (NEGATIVE) mg/dL Urine Ketones Negative (NEGATIVE) mg/dL Urine Occult Blood Trace (NEGATIVE) Urine Nitrite Negative (NEGATIVE) Urine Bilirubin Negative (NEGATIVE) Urine Urobilinogen Normal (NORMAL) mg/dL Ur Leukocyte Esterase Negative (NEGATIVE) Urine RBC 0-5 (0-5) Urine WBC 0-5 (0-5) Ur Epithelial Cells Few Amorphous Sediment Not seen Urine Bacteria Moderate Urine Mucus Few Meds: Medications Generic Name Dose Route Start Last Admin Trade Name Freq PRN Reason Stop Dose Admin Lactated Ringer's 1,000 mls @ 999 mls/hr 05/31/18 20:15 05/31/18 20:18 Ringers, Lactated IV 999 mls/hr ASDIRECTED NAVA Administration Sodium Chloride 81 mls @ 3 mls/sec 05/31/18 20:15 05/31/18 20:46 Normal Saline IV 3 mls/sec ASDIRECTED NAVA Administration Iopamidol 100 ml 05/31/18 20:15 05/31/18 20:46 Isovue-300 (61%) IV 100 ml . DIRECTED NAVA Administration Sodium Chloride 10 ml 05/31/18 20:01 05/31/18 20:46 Saline Flush FLUSH 10 ml ASDIRECTED PRN Administration Keep Vein Open Discontinued Medications Generic Name Dose Route Start Last Admin Trade Name Freq PRN Reason Stop Dose Admin Fentanyl 50 mcg 05/31/18 20:01 05/31/18 20:19 Sublimaze IVPUSH 05/31/18 20:02 50 mcg ONETIME ONE Administration Sodium Chloride 10 ml 05/31/18 20:07 05/31/18 20:19 Saline Flush FLUSH 05/31/18 20:08 10 ml ONETIME ONE Administration Departure - Departure Time of Disposition: 22:13 Disposition: Home, Self-Care 01 Condition: Fair Clinical Impression: Abdominal pain Qualifiers: Abdominal location: right lower quadrant Qualified Code(s): R10.31 - Right lower quadrant pain - Discharge Information Referrals: PCP,None [Primary Care Provider] - Forms: ED Department Discharge Additional Instructions: Use hydrocodone as needed for pain control, Please followup with your primary care provider in 3-5 days if not better, please call return to the emergency department with worsening of symptoms. - My Orders Last 24 Hours: My Active Orders 05/31/18 20:01 Sodium Chloride 0.9% [Saline Flush] 10 ml FLUSH ASDIRECTED PRN Peripheral IV Insertion Adult [OM.PC] Urgent 05/31/18 20:02 Peripheral IV Care [RC] . DIRECTED 05/31/18 20:15 Iopamidol [Isovue-300 (61%)] 100 ml IV . DIRECTED Lactated Ringers [Ringers, Lactated] 1,000 ml IV ASDIRECTED Sodium Chloride 0.9% [Normal Saline] 81 ml IV ASDIRECTED - Assessment/Plan Last 24 Hours: My Active Orders 05/31/18 20:01 Sodium Chloride 0.9% [Saline Flush] 10 ml FLUSH ASDIRECTED PRN Peripheral IV Insertion Adult [OM.PC] Urgent 05/31/18 20:02 Peripheral IV Care [RC] . DIRECTED 05/31/18 20:15 Iopamidol [Isovue-300 (61%)] 100 ml IV . DIRECTED Lactated Ringers [Ringers, Lactated] 1,000 ml IV ASDIRECTED Sodium Chloride 0.9% [Normal Saline] 81 ml IV ASDIRECTED Plan: Assessment Acuity = acute Site and laterality = right sided abdominal pain Etiology = unclear etiology Manifestations = none Location of injury = work Lab values = CBC, CMP, urinalysis CT scan all within normal limits Plan I did review lab work CT scan results with her she had good relief with fentanyl provided in emergency department a prescription is written for hydrocodone 5/325 one tab by mouth 3 times a day when necessary total #8 follow- up with her primary care in 3-5 days if no improvement This note was dictated using [employer] voice recognition software please call with any questions on syntax or grammar.
[2018-05-31] MEDS ORDERED: Sodium Chloride 0.9% 10 ML Syringe FLUSH ONE (20:07)
[2018-05-31] MEDS ORDERED: Lactated Ringers 1,000 ML IV SCH (20:15)
[2018-05-31] MEDS ORDERED: Iopamidol 612 MG/ML 100 ML Bottle IV SCH (20:15)
[2018-05-31 21:18] VITALS: BP 106/69
--- NOTE | 2018-05-31 21:42 | CRLCT ---
INDICATION: LEFT-SIDED ABDOMINAL PAIN AFTER LIFTING INJURY 351 IMAGES TAKEN 100 ML ISOVUE CONTRAST USED PRIOR STUDY DONE 6 MONTHS AGO 333 IMAGES TAKEN SENT OVER PRIOR AND FAXED REPORT HISTORY: Left-sided abdominal pain after lifting injury. COMPARISON: 12/11/2017. TECHNIQUE: CT of the abdomen and pelvis. 100 cc of Isovue-300 IV. Coronal/sagittal reconstruction images. FINDINGS: Lung bases: There is no pleural or pericardial effusion. The heart size is normal. The lung bases demonstrate no acute airspace disease. No basilar pneumothorax. Abdomen/pelvis: Mild dilation of intrahepatic biliary radicals. No change when compared with 12/11/2017. No solid hepatic mass. No perihepatic ascites. Cholecystectomy. Spleen size is normal. No adrenal mass. Symmetric nephrograms. No pancreatic mass, pancreatic duct dilation, or glandular atrophy. Urinary bladder is normal. No adnexal mass. No evidence of a small bowel or colonic obstruction. Dilated loops of small bowel and colon, without a specific transition point. The findings are stable when compared with previous. No pneumatosis. No portal venous gas. The patient is post gastric bypass. No drainable fluid collection. Arterial calcifications in a normal caliber abdominal aorta. No adenopathy is seen by size criteria in the pelvis, retroperitoneum, gastrohepatic ligament. No portal vein thrombosis. The splenic vein and SMV are patent. The bone windows demonstrate no suspicious lytic or blastic bone lesions. The alignment is preserved. On sagittal reconstruction images, the vertebral body heights are maintained. IMPRESSION: 1. No findings are seen to explain the patient`s abdominal pain. 2. Mildly dilated loops of small bowel and colon, with no specific transition point. The pattern is similar to the CT from 12/11/2017. 3. Biliary tree is dilated, likely reservoir effect after cholecystectomy. This is also stable. Dictated by John Lowe MD @ 05/31/2018 9:40:53 PM Please note that all CT scans at this facility use dose modulation, iterative reconstruction, and/or weight-based dosing when appropriate to reduce radiation dose to as low as reasonably achievable. Dictated by: John Lowe MD @ 05/31/2018 21:41:03 (Electronically Signed)
== END 2018-05-31 22:31 | disposition home or self-care (01) ==
LOC: JP.ED 19:29
DX: R10.31 Right lower quadrant pain (principal); K21.9 Gastro-esophageal reflux disease without esophagitis; E78.00 Pure hypercholesterolemia, unspecified; E11.9 Type 2 diabetes mellitus without complications; Z79.899 Other long term (current) drug therapy; Z88.6 Allergy status to analgesic agent; Z88.8 Allergy status to other drugs, medicaments and biological substances
CPT/HCPCS: 36415; 74177; 80053; 81001; 83605; 83690; 85025; 96361; 96374; 99284; J3010; J7030; J7120; Q9967

== ENCOUNTER 2018-07-02 18:16 | Emergency (ER) | payer OTHER ==
[2018-07-02 18:31] VITALS: BP 120/86
[2018-07-02] MEDS ORDERED: Ketorolac 60 MG/2 ML SDV IM ONE (18:45)
[2018-07-02] MEDS ORDERED: Baclofen 10 MG Tab PO ONE (18:46)
[2018-07-02] MEDS ORDERED: Acetaminophen/oxyCODONE 325-5 MG Tab PO ONE (18:46)
--- NOTE | 2018-07-02 18:51 | EDM.PDOC ---
ED HPI GENERAL MEDICAL PROBLEM - General Chief Complaint: Back Pain or Injury Stated Complaint: HURT BACK Time Seen by Provider: 07/02/18 18:48 Source of Information: Reports: Patient History Limitations: Reports: No Limitations - History of Present Illness INITIAL COMMENTS - FREE TEXT/NARRATIVE: pt was cleaning house and she fell going down the stairs/ She fell down about 3 steps but landed hard on the lower lumbar area. Onset: Other ( started about 3 days ago. ) Duration: Hour(s): Location: Reports: Back Associated Symptoms: Reports: No Other Symptoms Lower Back Pain Score (Numeric/FACES): 6 - Related Data Allergies Allergy/AdvReac Type Severity Reaction Status Date / Time tioconazole [From Monistat 1] Allergy Rash Verified 07/02/18 18:35 hydromorphone HCl AdvReac Nausea Verified 07/02/18 18:35 [From Dilaudid] Home Meds: Home Meds Docusate Sodium [Colace] 1 tab PO BID 04/25/13 [History] Vitamin B Complex [B Complex] 1 each PO BID 04/25/13 [History] Bisacodyl [Dulcolax] 3 tab PO BEDTIME 01/25/14 [History] Cholecalciferol (Vitamin D3) [Vitamin D3] 5,000 unit PO DAILY 01/25/14 [History] Cyanocobalamin (Vitamin B-12) [B-12] 2,500 mcg SL BID 01/25/14 [History] Gabapentin [Neurontin] 600 mg PO BID 01/25/14 [History] Multivitamin [Chewable Multi Vitamin] 2 tab CHEW DAILY 10/21/14 [History] Citalopram [Citalopram HBr] 20 mg PO DAILY 07/22/17 [History] Levocetirizine Dihydrochloride 5 mg PO DAILY 07/22/17 [History] Montelukast Sodium 10 mg PO DAILY 07/22/17 [History] Norethindrone-Ethinyl Estrad [Nortrel 1-35 21 Tablet] 1 tab PO DAILY 08/09/17 [ History] Omeprazole 40 mg PO DAILY 12/20/17 [History] Sennosides/Docusate Sodium [Senokot-S Tablet] 4 each PO BID 12/20/17 [History] Lubiprostone [Amitiza] 24 mcg PO BID 05/19/18 [History] Past Medical History HEENT History: Reports: Allergic Rhinitis, Impaired Vision, Otitis Media Cardiovascular History: Reports: High Cholesterol Gastrointestinal History: Reports: Bowel Obstruction, Cholelithiasis, Chronic Constipation, GERD, Irritable Bowel Syndrome Genitourinary History: Reports: None 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: Musculoskeletal History: Reports: Osteoarthritis, Other (See Below) Other Musculoskeletal History: carpal tunnel Neurological History: Reports: Other (See Below) Other Neuro History: restless leg Psychiatric History: Reports: Depression Endocrine/Metabolic History: Reports: Diabetes, Type II, Vitamin D Deficiency Hematologic History: Reports: Anemia, B12 Deficiency, Folic Acid, Iron Deficiency - Infectious Disease History Infectious Disease History: Reports: Chicken Pox - Past Surgical History Head Surgeries/Procedures: Reports: None HEENT Surgical History: Reports: None Cardiovascular Surgical History: Reports: None GI Surgical History: Reports: Bariatric Procedure, Cholecystectomy, Colon, Colonoscopy, EGD, Hernia, Abdominal Female Surgical History: Reports: Section Endocrine Surgical History: Reports: None Neurological Surgical History: Reports: None Musculoskeletal Surgical History: Reports: Arthroscopic Knee, Ganglion Cyst, Shoulder Surgery Dermatological Surgical History: Reports: None Social & Family History - Family History Family Medical History: Noncontributory - Tobacco Use Smoking Status *Q: Former Smoker Used Tobacco, but Quit: Yes Month/Year Tobacco Last Used: 2010 Second Hand Smoke Exposure: No - Caffeine Use Caffeine Use: Reports: Coffee, Soda - Recreational Drug Use Recreational Drug Use: No ED ROS GENERAL - Review of Systems Review Of Systems: See Below Constitutional: Reports: No Symptoms HEENT: Reports: No Symptoms Respiratory: Reports: No Symptoms Cardiovascular: Reports: No Symptoms Endocrine: Reports: No Symptoms GI/Abdominal: Reports: No Symptoms : Reports: No Symptoms Musculoskeletal: Reports: Other (pain in the lower back area. She states the pain does go down the legs some only when she moves in certain positions. ) Skin: Reports: No Symptoms Neurological: Reports: No Symptoms ED EXAM,LOWER BACK PAIN/INJURY - Physical Exam Exam: See Below Text/Narrative:: pt arrived with pain in the lower back. She fell about 3-4 steps down holding a heavy object. Exam Limited By: No Limitations General Appearance: Alert, Moderate Distress Ears: Normal TMs Nose: Normal Inspection Throat/Mouth: Normal Inspection Head: Atraumatic Back Exam: Other (pt is tender over the lower back. No swelling or bruising. ) Course - Vital Signs Last Recorded V/S: Last Vital Signs Temp 36.1 C 07/02/18 18:34 Pulse 76 07/02/18 18:34 Resp 16 07/02/18 18:34 BP 120/86 07/02/18 18:34 Pulse Ox 99 07/02/18 18:34 - Orders/Labs/Meds Meds: Medications Discontinued Medications Generic Name Dose Route Start Last Admin Trade Name Sasha PRN Reason Stop Dose Admin Baclofen 10 mg 07/02/18 18:46 07/02/18 18:49 Lioresal PO 07/02/18 18:47 10 mg ONETIME ONE Administration Ketorolac Tromethamine 60 mg 07/02/18 18:45 07/02/18 18:50 Toradol IM 07/02/18 18:46 60 mg ONETIME ONE Administration Oxycodone/Acetaminophen 1 tab 07/02/18 18:46 07/02/18 18:53 Percocet 325-5 Mg PO 07/02/18 18:47 1 tab ONETIME ONE Administration - Re-Assessments/Exams Free Text/Narrative Re-Assessment/Exam: 07/09/18 19:04 lumbar spine series did not show a fracture. Departure - Departure Time of Disposition: 19:21 Disposition: Home, Self-Care 01 Condition: Fair Clinical Impression: Lumbar contusion - Discharge Information Instructions: Contusion, [id number] Referrals: Summer Tijerina PA-C [Primary Care Provider] - Forms: ED Department Discharge Care Plan Goals: moist warm packs followed by a cool pack, rest, baclofrn 10mg bid to relax muscles, naprosyn 500mg bid for the next 5 days, percocet 5/325 q6h prn for pain # 10.
--- NOTE | 2018-07-02 20:07 | CRLCR ---
INDICATION: Low-back pain TECHNIQUE: Lumbar spine 4 view. COMPARISON: CT abdomen and pelvis 05/31/2018 FINDINGS: There are 5 [id number] lumbar type vertebral bodies. There is normal lumbar lordosis. The vertebral body heights are maintained and in good alignment. The discs spaces are preserved. There is bilateral facet arthropathy of the lower lumbar spine. There is bilateral spondylolisthesis at L5-S1, this appears unchanged compared to prior CT. There is minimal grade 1 anterolisthesis of L5 on S1. Surgical clips are seen within the right upper quadrant. IMPRESSION: 1. Mild grade 1 anterior listhesis of L5 on S1. 2. Bilateral spondylolysis of L5 on S1, similar to prior CT. Dictated by Maribell Godfrey MD @ 07/02/2018 8:04:17 PM Dictated by: Maribell Godfrey MD @ 07/02/2018 20:04:33 (Electronically Signed)
== END 2018-07-02 19:32 | disposition home or self-care (01) ==
LOC: JP.ED 18:16
DX: S30.0XXA Contusion of lower back and pelvis, initial encounter (principal); E11.9 Type 2 diabetes mellitus without complications; Z88.8 Allergy status to other drugs, medicaments and biological substances; Z88.6 Allergy status to analgesic agent; Z79.899 Other long term (current) drug therapy; Z87.891 Personal history of nicotine dependence; W10.9XXA Fall (on) (from) unspecified stairs and steps, initial encounter; Y93.89 Activity, other specified
CPT/HCPCS: 72110; 96372; 99283; A9270; J1885

== ENCOUNTER 2018-08-07 07:02 | Inpatient (IN) | payer OTHER ==
[~2018-08-07 07:02] MED LIST: Gabapentin 300 MG Cap PO ONE
[2018-08-07] MEDS ORDERED: Meropenem 500 MG SDV ONE (07:20)
[2018-08-07] MEDS ORDERED: Dextrose 5%-Lactated Ringers 1,000 ML IV SCH (07:45)
[2018-08-07] MEDS ORDERED: cefOXitin 2 GM in Sodium Chloride 0.9% 50 ML IV ONE (08:00)
[2018-08-07] MEDS ORDERED: Ketamine 500 MG/5 ML MDV IV SCH (08:30)
[2018-08-07] MEDS ORDERED: Ketamine 50 MG in Sodium Chloride 0.9% 49.5 ML IV SCH (08:30)
[2018-08-07] MEDS ORDERED: fentaNYL 250 MCG/5 ML SDV ONE (08:53)
[2018-08-07] MEDS ORDERED: Dexamethasone 4 MG/ML SDV ONE (08:53)
[2018-08-07] MEDS ORDERED: Glycopyrrolate 0.2 MG/ML 5 ML MDV ONE (08:53)
[2018-08-07] MEDS ORDERED: Ondansetron 4 MG/2 ML SDV ONE (08:53)
[2018-08-07] MEDS ORDERED: Rocuronium 50 MG/5 ML Vial ONE ×2 (08:53→10:43)
[2018-08-07] MEDS ORDERED: Succinylcholine 200 MG/10 ML MDV ONE (08:53)
[2018-08-07] MEDS ORDERED: Neostigmine Methylsulfate 1 MG/ML 5 ML Syringe ONE (08:53)
[2018-08-07] MEDS ORDERED: Propofol 200 MG/20 ML SDV ONE (08:53)
[2018-08-07] MEDS ORDERED: fentaNYL 100 MCG/2 ML SDV ONE (11:09)
[2018-08-07] MEDS: HYDROmorphone/Normal Saline 15 MG/30 ML PCA IV SCH (11:40)
[2018-08-07] MEDS ORDERED: Scopolamine 1.5 MG Transdermal Patch TOP ONE (12:14)
[2018-08-07] MEDS ORDERED: hydrOXYzine HCl 100 MG/2 ML SDV IM ONE (12:18)
[2018-08-07] MEDS ORDERED: Metoclopramide 10 MG/2 ML SDV IVPUSH PRN (13:15)
[2018-08-07] MEDS ORDERED: Labetalol 20 MG/4 ML Syringe IVPUSH PRN (13:15)
[2018-08-07] MEDS ORDERED: hydrOXYzine HCl 100 MG/2 ML SDV IM PRN (13:15)
[2018-08-07] MEDS ORDERED: diphenhydrAMINE 50 MG/ML SDV IVPUSH PRN (13:15)
[2018-08-07] MEDS: Gabapentin 250 MG/5 ML Solution ML 470 ML Bottle PO SCH ×2 (14:15→21:04)
[2018-08-07] MEDS: Baclofen 10 MG Tab PO PRN (14:15)
[2018-08-07] MEDS: Acetaminophen Soln 650 MG/20.3 ML UD Cup PO SCH ×2 (14:15→19:10)
[2018-08-07] MEDS: cefOXitin 2 GM in Sodium Chloride 0.9% 50 ML IV SCH ×2 (16:07→21:28)
[2018-08-07] MEDS: MVI, Adult with Vitamin K 10 ML, Thiamine 200 MG, Chromium/Copper/Mang/Selen/Zn 1 ML in... IV SCH ×4 (16:07)
[2018-08-07] MEDS: Pantoprazole 40 MG Vial IVPUSH SCH (16:08)
[2018-08-07] MEDS: Heparin Sodium 5,000 Units/ML Vial SUBCUT SCH (20:34)
[2018-08-07] MEDS: Montelukast 10 MG Tab PO SCH (21:02)
[2018-08-07] MEDS: Lubiprostone 24 MCG Cap PO SCH (21:02)
[2018-08-07] MEDS: Dextrose 5%-Lactated Ringers 1,000 ML IV SCH (23:05)
[2018-08-08] MEDS: Ondansetron 4 MG/2 ML SDV IVPUSH PRN (01:10)
[2018-08-08] MEDS: Acetaminophen Soln 650 MG/20.3 ML UD Cup PO SCH ×4 (01:13→19:08)
[2018-08-08] MEDS ORDERED: Iohexol 647 MG/ML 50 ML SDV PO STA (03:19)
[2018-08-08] MEDS: cefOXitin 2 GM in Sodium Chloride 0.9% 50 ML IV SCH (03:58)
--- NOTE | 2018-08-08 04:51 | CRLCR ---
Indication: Status post Dashawn-en-Y, evaluate for contrast extravasation Technique: KUB 2 view Comparison: July 02, 2018 Findings/Impression: : Oral contrast is seen within the stomach and proximal to mid small bowel. No evidence for extravasation of contrast material. Midline laparotomy skin kitty noted. Surgical drain in the right lower quadrant. Surgical clips noted in the right upper quadrant. Dictated by Nat Youssef MD @ Aug 08 2018 4:49AM Signed by Dr. Nat Youssef @ Aug 08 2018 4:50AM
[2018-08-08] MEDS: Dextrose 5%-Lactated Ringers 1,000 ML IV SCH ×3 (05:24→22:26)
[2018-08-08] MEDS: Heparin Sodium 5,000 Units/ML Vial SUBCUT SCH ×2 (08:26→20:41)
[2018-08-08] MEDS: Celecoxib 200 MG Cap PO SCH (08:26)
[2018-08-08] MEDS: Lubiprostone 24 MCG Cap PO SCH ×2 (08:27→20:40)
[2018-08-08] MEDS: DULoxetine 20 MG Cap PO SCH (08:27)
[2018-08-08] MEDS: [UNRECOGNIZED DRUG - OTHER] PO SCH (08:28)
[2018-08-08] MEDS: Cetirizine 10 MG Tab PO SCH (08:29)
[2018-08-08] MEDS: Gabapentin 250 MG/5 ML Solution ML 470 ML Bottle PO SCH ×3 (08:32→20:40)
[2018-08-08] MEDS: SCOPOLAMINE PATCH CHECK TOP SCH (10:43)
[2018-08-08] MEDS: Pantoprazole 40 MG Vial IVPUSH SCH (16:15)
[2018-08-08] MEDS: MVI, Adult with Vitamin K 10 ML, Thiamine 200 MG, Chromium/Copper/Mang/Selen/Zn 1 ML in... IV SCH ×4 (16:15)
[2018-08-08] MEDS: Montelukast 10 MG Tab PO SCH (20:42)
[2018-08-08] MEDS: Bisacodyl 5 MG Tab PO SCH (20:46)
[2018-08-08] MEDS: Docusate Sodium 100 MG Cap PO SCH (20:46)
[2018-08-09] MEDS: Acetaminophen Soln 650 MG/20.3 ML UD Cup PO SCH ×4 (01:15→19:12)
[2018-08-09] MEDS: HYDROmorphone/Normal Saline 15 MG/30 ML PCA IV SCH (05:23)
[2018-08-09] MEDS: Celecoxib 200 MG Cap PO SCH (07:24)
[2018-08-09] MEDS: Heparin Sodium 5,000 Units/ML Vial SUBCUT SCH ×2 (07:25→20:55)
[2018-08-09] MEDS ORDERED: Cyanocobalamin (Vitamin B12) 1,000 MCG/ML SDV IM ONE (09:00)
[2018-08-09] MEDS: Lubiprostone 24 MCG Cap PO SCH ×2 (09:26→20:55)
[2018-08-09] MEDS: Docusate Sodium 100 MG Cap PO SCH ×2 (09:26→20:55)
[2018-08-09] MEDS: DULoxetine 20 MG Cap PO SCH (09:27)
[2018-08-09] MEDS: Gabapentin 250 MG/5 ML Solution ML 470 ML Bottle PO SCH ×3 (09:27→21:01)
[2018-08-09] MEDS: SCOPOLAMINE PATCH CHECK TOP SCH (09:28)
[2018-08-09] MEDS: [UNRECOGNIZED DRUG - OTHER] PO SCH (09:28)
[2018-08-09] MEDS: Cetirizine 10 MG Tab PO SCH (09:29)
[2018-08-09] MEDS: Pantoprazole 40 MG Tab.CR PO SCH (16:06)
[2018-08-09] MEDS: MVI, Adult with Vitamin K 10 ML, Thiamine 200 MG, Chromium/Copper/Mang/Selen/Zn 1 ML in... IV SCH ×4 (16:06)
[2018-08-09] MEDS: Montelukast 10 MG Tab PO SCH (20:55)
[2018-08-09] MEDS: Bisacodyl 5 MG Tab PO SCH (20:55)
[2018-08-10] MEDS: Dextrose 5%-Lactated Ringers 1,000 ML IV SCH (01:59)
[2018-08-10] MEDS: Acetaminophen Soln 650 MG/20.3 ML UD Cup PO SCH ×4 (02:00→18:43)
[2018-08-10] MEDS: Heparin Sodium 5,000 Units/ML Vial SUBCUT SCH ×2 (07:30→20:35)
[2018-08-10] MEDS: Celecoxib 200 MG Cap PO SCH (07:30)
[2018-08-10] MEDS: Acetaminophen/oxyCODONE 325-5 MG Tab PO PRN ×5 (09:02→22:56)
[2018-08-10] MEDS: Lubiprostone 24 MCG Cap PO SCH ×2 (09:03→20:36)
[2018-08-10] MEDS: DULoxetine 20 MG Cap PO SCH (09:04)
[2018-08-10] MEDS: Docusate Sodium 100 MG Cap PO SCH ×2 (09:04→20:35)
[2018-08-10] MEDS: Cetirizine 10 MG Tab PO SCH (09:04)
[2018-08-10] MEDS: [UNRECOGNIZED DRUG - OTHER] PO SCH (09:04)
[2018-08-10] MEDS: Gabapentin 250 MG/5 ML Solution ML 470 ML Bottle PO SCH ×3 (09:07→20:40)
[2018-08-10] MEDS: Baclofen 10 MG Tab PO PRN (11:20)
--- NOTE | 2018-08-10 12:39 | PN ---
DATE OF SERVICE: 08/10/2018 The patient has been afebrile with stable vital signs. Bowels are now moving and we will hold oral pain medication today. She may be ready for discharge home tomorrow. Preston Russ MD /[id number]
--- NOTE | 2018-08-10 12:45 | PN ---
DATE OF SERVICE: 08/09/2018 The patient has been afebrile with stable vital signs, but saw a fair bit of abdominal discomfort and I think we will need a MANNEQUIN REFINISHER going for today. Otherwise, she can get in the shower if she wishes and we will work on her bowel stimulation as ordered. Preston Russ MD /[id number]
[2018-08-10] MEDS: Pantoprazole 40 MG Tab.CR PO SCH (15:52)
[2018-08-10] MEDS: Ondansetron 4 MG/2 ML SDV IVPUSH PRN (19:42)
[2018-08-10] MEDS: Bisacodyl 5 MG Tab PO SCH (20:37)
[2018-08-10] MEDS: Montelukast 10 MG Tab PO SCH (20:46)
[2018-08-11] MEDS: Acetaminophen Soln 650 MG/20.3 ML UD Cup PO SCH ×2 (00:58→07:31)
[2018-08-11 07:10] VITALS: BP 119/79
[2018-08-11] MEDS: Heparin Sodium 5,000 Units/ML Vial SUBCUT SCH (07:31)
[2018-08-11] MEDS: Celecoxib 200 MG Cap PO SCH (07:31)
[2018-08-11] MEDS: Acetaminophen/oxyCODONE 325-5 MG Tab PO PRN (07:31)
--- NOTE | 2018-08-11 08:27 | PN ---
DATE OF SERVICE: 08/08/2018 The patient is postop day #1 from a small-bowel resection and right colectomy. Clinically, she is doing well. Diet is going okay, and upper GI x-ray looks stable. We will go up to step 3 diet today, back down the IV rate. We will get a STAINLESS STEEL FINISHER going today. It is notable that she is tolerating the Dilaudid, so we may want to take that allergy or intolerance off of her list. Otherwise, we will maximize activity and work with pulmonary toilet. Preston Russ MD /[id number]
--- NOTE | 2018-08-13 07:56 | DISCH ---
FINAL DIAGNOSES: 1. Limited peripheral venous access. 2. Partial small bowel obstruction likely related to intussusception at jejunojejunostomy. 3. Chronic cecal volvulus. 4. Recurrent incarcerated incisional hernia. 5. Probable peritoneal body. 6. Extensive intraabdominal adhesions. 7. Incarcerated umbilical hernia. 8. Bariatric surgery status. 9. History of hyperlipidemia. 10.Restless leg syndrome. 11.History of depression. 12.Slow transit constipation. 13.History of asthma. OPERATIVE PROCEDURE: This was done on 08/07/2018, exploratory laparotomy with lysis of extensive adhesions and: 1. Small bowel resection. 2. Right hemicolectomy. 3. Secondary enteroenterostomy for reconstruction of the Dashawn-en-Y anatomy. 4. Repair of incarcerated recurrent incisional hernia. 5. Repair of incarcerated umbilical hernia. 6. Excision of probable peritoneal body. 7. Placement of Interceed mesh. HOSPITAL COURSE: The patient presented with a picture of chronic small bowel obstruction. On the date of admission, the patient underwent exploratory laparotomy with the above findings. The patient's postoperative course was unremarkable. She had a little bit slow return of bowel function, which would be consistent with slow transit constipation. Hopefully, the addition of the right colectomy will be helpful with that in long-term. Otherwise, at this point, she is tolerating a step-3 diet and will be discharged home. She will follow up with Dr. Russ at [facility] on 08/19/2018. She will be continuing her home medications, plus Percocet 5/325 one tablet q.4 hours p.r.n. pain, #42.
--- NOTE | 2018-08-13 09:01 | OR ---
CORRECTED REPORT DATE OF PROCEDURE: 08/07/2018 SURGEON: Preston Russ MD PREOPERATIVE DIAGNOSES: 1. Partial small bowel obstruction. 2. Limited peripheral venous access. POSTOPERATIVE DIAGNOSES: 1. Limited peripheral venous access. 2. Partial small bowel obstruction with probable intussusception occurring at jejunojejunostomy. 3. Chronic cecal volvulus. 4. Recurrent incarcerated incisional hernia. 5. Incarcerated umbilical hernia. 6. Probable peritoneal body. 7. Extensive intraabdominal adhesions. PROCEDURES PERFORMED: 1. Insertion of left subclavian vein triple-lumen catheter (28919). 2. Exploratory laparotomy with lysis of extensive adhesions: a. Small bowel resection (46035). b. Secondary enteroenterostomy to restore the patient's Dashawn-en-Y small bowel anatomy (70668). c. Right hemicolectomy (21602). d. Repair of incarcerated recurrent incisional hernia (43426). e. Repair of incarcerated umbilical hernia (16761). f. Excision of probable peritoneal body (81052). g. Placement of Interceed mesh to limit recurrent adhesion formation between abdominal wall and pelvis and underlying viscera (32875). ANESTHESIA: General. PROGRAM MANAGEMENT ANALYST: Micheal Alfonso MS-3. INDICATION FOR PROCEDURE: This is a 47-year-old female presenting with symptoms suggestive of partial small bowel obstruction. Recent CT scan seemed to show some dilation of the area around the jejunojejunostomy. She also suffers from quite severe chronic constipation, and with combination of these, resulted in patient having quite a bit of postprandial bloating, and plan is to proceed with exploratory laparotomy with lysis of adhesions, possible bowel resection. Potential risks of the procedure including bleeding, infection, injury to underlying viscera, possible recurrence of the problem over time, as well as remote possibility of cardiopulmonary, septic, or hemorrhagic complications leading to were discussed, and the patient wishes to proceed. DETAILS OF PROCEDURE: The patient was taken to the operating room and placed in a supine position. After general endotracheal anesthesia was induced, the [place] catheter was inserted, and the abdomen was prepped and draped. Previous upper midline incision was then reused, carried down through the skin and subcutaneous tissue. During the course of the dissection, the patient was noted to have an incarcerated incisional hernia. This contained some preperitoneal fat, which was excised and sent as specimen. At the lower end of the incision, the patient was also noted to have an incarcerated umbilical hernia. This area was then also reduced and both of these were then closed at the time of the primary fascial closure at the end of the case. As one entered the peritoneal cavity, quite a bit in way of adhesions were encountered. These were taken down, and eventually the findings were identified. The patient was noted to have a boggy, dilated, and reddened and edematous jejunojejunostomy. This would be suggestive of some chronic intussusception occurring at that level. This area was resected. The three components of the jejunojejunostomy were then divided with the JAYCE stapler and the underlying mesentry divided with stapler as well. The distal-most Dashawn limb to the proximal-most common limb were then initially anastomosed [id number] with JAYCE kitty. The angles of anastomosis and mesenteric defect were approximated with some 3-0 Vicryl stitch, in the case of the mesentery, and a 2-0 silk stitch. The Dashawn-en-Y anatomy was then reconstructed with an anastomosis between the biliopancreatic limb to the bowel roughly 20 cm distal to the first anastomosis with the same sequence of staplers, and this mesenteric defect was also approximated with a 2-0 silk stitch. One additional finding was also then of the right colon being extremely immobile and appeared to have a crease where it was chronically folding, and this resulted in marked distention of the right colon, likely accounting for some of the patient's problems with bowel function. A decision was made to proceed with right colectomy. The distal small bowel was divided with a JAYCE stapler, as was the mid transverse colon to the right of the middle colic vessels. The colon was freed up of any attachments laterally and the underlying mesentery divided with combination of vascular and mesenteric loads, depending on the thickness of tissue, and that specimen delivered from the field. The ileocolic anastomosis was then accomplished with 2 internal firings of the Endo-JAYCE 60 mm stapler, common opening closed transversely with the JAYCE purple loads, the angles anastomosed, and mesenteric defect approximated with some 3-0 Vicryl stitch, and this anastomosis was then reinforced with some fibrin sealant as well, after which the omentum was draped over the anastomosis as well. During the course of the taking down of the adhesions, what appeared to be a peritoneal body measuring around 1 to 1.5 cm was identified, and this was also excised. At this point, no further problems were noted. A single Gene-Burgos drain was taken through stab wound in the right mid abdomen, taken across the area of the ileocolic anastomosis. Interceed mesh was then placed from the pelvis upward underneath the incision, to prevent recurrent adhesion formation between those surfaces and the underlying viscera. Midline fascia was then closed with #2 Vicryl stitch, which also involved closure of the 2 hernias. The subcutaneous tissue was approximated with some 4-0 Vicryl stitch and the skin with kitty. Bilateral transversus abdominis plane blocks were then placed during the course of procedure as well. Incision was then anesthetized with 0.5% Marcaine mixed with lidocaine, and kitty were applied. The patient was taken to the recovery room in satisfactory condition. There were no evident complications. Due to patient's poor peripheral venous access, a left subclavian vein triple-lumen catheter was inserted using standard technique. The post-op chest x-ray showed good catheter position and no evident complications. Preston Russ MD /[id number]
== END 2018-08-11 09:12 | disposition home or self-care (01) | DRG 330 ==
LOC: JP.SDS 07:02 → JP.SDSSCHI 07:02 → EDSTATUS 09:30 → JP.MS 12:00
PROVIDERS: ADMIT Surgery; ATTEND Surgery
PROC: 0WQF0ZZ Repair Abdominal Wall, Open Approach (ICD-10-PCS; principal; 2018-08-07)
PROC: 0D190ZA Bypass Duodenum to Jejunum, Open Approach (ICD-10-PCS; 2018-08-07)
PROC: 0DBA0ZX Excision of Jejunum, Open Approach, Diagnostic (ICD-10-PCS; 2018-08-07)
PROC: 0WQF0ZZ Repair Abdominal Wall, Open Approach (ICD-10-PCS; 2018-08-07)
PROC: 0DTF0ZZ Resection of Right Large Intestine, Open Approach (ICD-10-PCS; 2018-08-07)
PROC: 0D1B0ZL Bypass Ileum to Transverse Colon, Open Approach (ICD-10-PCS; 2018-08-07)
PROC: 0DNW0ZZ Release Peritoneum, Open Approach (ICD-10-PCS; 2018-08-07)
PROC: 0DBW0ZZ Excision of Peritoneum, Open Approach (ICD-10-PCS; 2018-08-07)
PROC: 3E0M05Z Introduction of Adhesion Barrier into Peritoneal Cavity, Open Approach (ICD-10-PCS; 2018-08-07)
PROC: 8E0W0CZ Robotic Assisted Procedure of Trunk Region, Open Approach (ICD-10-PCS; 2018-08-07)
PROC: 05H633Z Insertion of Infusion Device into Left Subclavian Vein, Percutaneous Approach (ICD-10-PCS; 2018-08-07)
DX: K56.51 Intestinal adhesions [bands], with partial obstruction (principal); K91.2 Postsurgical malabsorption, not elsewhere classified; K43.0 Incisional hernia with obstruction, without gangrene; K42.0 Umbilical hernia with obstruction, without gangrene; K56.1 Intussusception; K56.2 Volvulus; K66.8 Other specified disorders of peritoneum; Z98.84 Bariatric surgery status; E53.8 Deficiency of other specified B group vitamins; E55.9 Vitamin D deficiency, unspecified; G89.4 Chronic pain syndrome; K59.01 Slow transit constipation; K21.9 Gastro-esophageal reflux disease without esophagitis; F32.9 Major depressive disorder, single episode, unspecified; E78.5 Hyperlipidemia, unspecified; Z87.891 Personal history of nicotine dependence; Z88.5 Allergy status to narcotic agent; Z88.8 Allergy status to other drugs, medicaments and biological substances; D50.9 Iron deficiency anemia, unspecified; Z79.891 Long term (current) use of opiate analgesic; J30.2 Other seasonal allergic rhinitis; K59.8 Other specified functional intestinal disorders; Z98.0 Intestinal bypass and anastomosis status; G25.81 Restless legs syndrome
CPT/HCPCS: 36415; 74240; 80053; 81025; 82607; 82728; 82746; 83735; 83880; 84100; 85025; 88305; 88307; 94762; A9270-GY; C9113; J0171; J0330; J0694; J1100; J1170; J1642; J1644; J2020; J2185; J2405; J2704; J2710; J2795; J3010; J3410; J3411; J3420; J3490; J7042; J7050; Q9967

== ENCOUNTER 2018-08-31 20:24 | Emergency (ER) | payer BC, OTHER ==
[2018-08-31] MEDS ORDERED: Ketorolac 60 MG/2 ML SDV IM ONE (21:05)
--- NOTE | 2018-08-31 21:11 | EDM.PDOC ---
ED HPI GENERAL MEDICAL PROBLEM - General Chief Complaint: Wound Recheck Stated Complaint: ABD PAIN SURGERY AUGUST 07 Time Seen by Provider: 08/31/18 20:59 Source of Information: Reports: Patient, RN Notes Reviewed History Limitations: Reports: No Limitations - History of Present Illness INITIAL COMMENTS - FREE TEXT/NARRATIVE: 48-year-old female presents emergency department today complaint of abdominal pain, she recently had multiple abdominal surgeries for months and may has use Percocet for pain control she is now out of that medication she has been using Aleve for pain control without getting much relief. No nausea no vomiting no shortness of breath no chest pain pain is more generalized around her surgical incision Middle Abdomen Pain Score (Numeric/FACES): 7 - Related Data Allergies Allergy/AdvReac Type Severity Reaction Status Date / Time tioconazole [From Monistat 1] Allergy Rash Verified 08/07/18 07:17 Home Meds: Home Meds Docusate Sodium [Colace] 1 tab PO BID 04/25/13 [History] Vitamin B Complex [B Complex] 1 each PO DAILY 04/25/13 [History] Bisacodyl [Dulcolax] 3 tab PO BEDTIME 01/25/14 [History] Cholecalciferol (Vitamin D3) [Vitamin D3] 5,000 unit PO DAILY 01/25/14 [History] Cyanocobalamin (Vitamin B-12) [B-12] 2,500 mcg SL DAILY 01/25/14 [History] Gabapentin [Neurontin] 600 mg PO BID 01/25/14 [History] Levocetirizine Dihydrochloride 5 mg PO DAILY 07/22/17 [History] Montelukast Sodium 10 mg PO BEDTIME 07/22/17 [History] Norethindrone-Ethinyl Estrad [Nortrel 1-35 21 Tablet] 1 tab PO DAILY 08/09/17 [ History] Omeprazole 40 mg PO DAILY 12/20/17 [History] Sennosides/Docusate Sodium [Senokot-S Tablet] 4 each PO BID 12/20/17 [History] Lubiprostone [Amitiza] 24 mcg PO BID 05/19/18 [History] Celecoxib [CeleBREX] 100 mg PO BID 08/06/18 [History] DULoxetine [Cymbalta] 20 mg PO DAILY 08/06/18 [History] Past Medical History HEENT History: Reports: Allergic Rhinitis, Impaired Vision, Otitis Media Cardiovascular History: Reports: High Cholesterol Respiratory History: Reports: Asthma Gastrointestinal History: Reports: Bowel Obstruction, Cholelithiasis, Chronic Constipation, GERD, Irritable Bowel Syndrome CERTIFIED MEDICAL ASST History: Reports: Musculoskeletal History: Reports: Osteoarthritis, Other (See Below) Other Musculoskeletal History: carpal tunnel Neurological History: Reports: Other (See Below) Other Neuro History: restless leg Psychiatric History: Reports: Depression Endocrine/Metabolic History: Reports: Diabetes, Type II, Vitamin D Deficiency Hematologic History: Reports: Anemia, B12 Deficiency, Folic Acid, Iron Deficiency - Infectious Disease History Infectious Disease History: Reports: Chicken Pox - Past Surgical History Head Surgeries/Procedures: Reports: None HEENT Surgical History: Reports: None Cardiovascular Surgical History: Reports: None Respiratory Surgical History: Reports: None GI Surgical History: Reports: Bariatric Procedure, Cholecystectomy, Colon, Colonoscopy, EGD, Hernia, Abdominal Female Surgical History: Reports: Section Endocrine Surgical History: Reports: None Neurological Surgical History: Reports: None Musculoskeletal Surgical History: Reports: Arthroscopic Knee, Ganglion Cyst, Shoulder Surgery Dermatological Surgical History: Reports: None Social & Family History - Family History Family Medical History: Noncontributory - Tobacco Use Smoking Status *Q: Never Smoker - Caffeine Use Caffeine Use: Reports: Tea Caffeine Use Comment: daily iced tea - Recreational Drug Use Recreational Drug Use: No ED ROS GENERAL - Review of Systems Review Of Systems: See Below Constitutional: Reports: No Symptoms Respiratory: Reports: No Symptoms Cardiovascular: Reports: No Symptoms GI/Abdominal: Reports: Abdominal Pain, Flatus. Denies: Constipation, Diarrhea, Nausea, Vomiting : Reports: No Symptoms ED EXAM, GI/ABD - Physical Exam Exam: See Below Exam Limited By: No Limitations General Appearance: Alert, WD/WN, No Apparent Distress Respiratory/Chest: No Respiratory Distress GI/Abdominal Exam: Normal Bowel Sounds, Soft, Non-Tender, No Organomegaly, No Distention, Other (Surgical wound is clean dry and intact) Course - Vital Signs Last Recorded V/S: Last Vital Signs Temp 98.2 F 08/31/18 21:43 Pulse 64 08/31/18 21:46 Resp 13 08/31/18 21:43 BP 123/75 08/31/18 21:46 Pulse Ox 100 08/31/18 21:46 - Orders/Labs/Meds Labs: Laboratory Tests 08/31/18 08/31/18 08/31/18 Range/Units 21:13 21:13 21:13 WBC 9.1 (4.5-11.0) K/uL RBC 4.31 (3.30-5.50) M/uL Hgb 12.0 (12.0-15.0) g/dL Hct 35.6 L (36.0-48.0) % MCV 83 (80-98) fL MCH 28 (27-31) pg MCHC 34 (32-36) % Plt Count 340 (150-400) K/uL Neut % (Auto) 58 (36-66) % Lymph % (Auto) 33 (24-44) % Schley % (Auto) 5 (2-6) % Eos % (Auto) 5 H (2-4) % Baso % (Auto) 0 (0-1) % Sodium 140 (140-148) mmol/L Potassium 3.2 L (3.6-5.2) mmol/L Chloride 107 (100-108) mmol/L Carbon Dioxide 22 (21-32) mmol/L Anion Gap 14.2 H (5.0-14.0) mmol/L BUN 12 D (7-18) mg/dL Creatinine 0.9 (0.6-1.0) mg/dL Est Cr Clr Drug Dosing 70.28 mL/min Estimated GFR (MDRD) > 60 (>60) Glucose 92 (74-106) mg/dL Lactic Acid 0.9 (0.4-2.0) mmol/L Calcium 8.5 (8.5-10.1) mg/dL Total Bilirubin 0.2 (0.2-1.0) mg/dL AST 10 L (15-37) U/L ALT 22 (12-78) U/L Alkaline Phosphatase 77 (46-116) U/L Total Protein 6.1 L (6.4-8.2) g/dL Albumin 3.1 L (3.4-5.0) g/dL Globulin 3.0 (2.3-3.5) g/dL Albumin/Globulin Ratio 1.0 L (1.2-2.2) Urine Color Urine Appearance Urine pH (4.5-8.0) Ur Specific [place] (1.008-1.030) Urine Protein (NEGATIVE) mg/dL Urine Glucose (UA) (NEGATIVE) mg/dL Urine Ketones (NEGATIVE) mg/dL Urine Occult Blood (NEGATIVE) Urine Nitrite (NEGATIVE) Urine Bilirubin (NEGATIVE) Urine Urobilinogen (NORMAL) mg/dL Ur Leukocyte Esterase (NEGATIVE) Urine RBC (0-5) Urine WBC (0-5) Ur Epithelial Cells Amorphous Sediment Urine Bacteria Urine Mucus 08/31/18 Range/Units 21:36 WBC (4.5-11.0) K/uL RBC (3.30-5.50) M/uL Hgb (12.0-15.0) g/dL Hct (36.0-48.0) % MCV (80-98) fL MCH (27-31) pg MCHC (32-36) % Plt Count (150-400) K/uL Neut % (Auto) (36-66) % Lymph % (Auto) (24-44) % [place] % (Auto) (2-6) % Eos % (Auto) (2-4) % Baso % (Auto) (0-1) % Sodium (140-148) mmol/L Potassium (3.6-5.2) mmol/L Chloride (100-108) mmol/L Carbon Dioxide (21-32) mmol/L Anion Gap (5.0-14.0) mmol/L BUN (7-18) mg/dL Creatinine (0.6-1.0) mg/dL Est Cr Clr Drug Dosing mL/min Estimated GFR (MDRD) (>60) Glucose (74-106) mg/dL Lactic Acid (0.4-2.0) mmol/L Calcium (8.5-10.1) mg/dL Total Bilirubin (0.2-1.0) mg/dL AST (15-37) U/L ALT (12-78) U/L Alkaline Phosphatase (46-116) U/L Total Protein (6.4-8.2) g/dL Albumin (3.4-5.0) g/dL Globulin (2.3-3.5) g/dL Albumin/Globulin Ratio (1.2-2.2) Urine Color Yellow Urine Appearance Clear Urine pH 6.0 (4.5-8.0) Ur Specific [place] 1.015 (1.008-1.030) Urine Protein Negative (NEGATIVE) mg/dL Urine Glucose (UA) Normal (NEGATIVE) mg/dL Urine Ketones Negative (NEGATIVE) mg/dL Urine Occult Blood Negative (NEGATIVE) Urine Nitrite Negative (NEGATIVE) Urine Bilirubin Negative (NEGATIVE) Urine Urobilinogen Normal (NORMAL) mg/dL Ur Leukocyte Esterase Negative (NEGATIVE) Urine RBC 0-5 (0-5) Urine WBC 0-5 (0-5) Ur Epithelial Cells Few Amorphous Sediment Few Urine Bacteria Not seen Urine Mucus Not seen Meds: Medications Discontinued Medications Generic Name Dose Route Start Last Admin Trade Name Sasha PRN Reason Stop Dose Admin Ketorolac Tromethamine 60 mg 08/31/18 21:05 08/31/18 21:13 Toradol IM 08/31/18 21:06 60 mg ONETIME ONE Administration Departure - Departure Time of Disposition: 22:03 Disposition: Home, Self-Care 01 Condition: Fair Clinical Impression: Abdominal pain Qualifiers: Abdominal location: generalized Qualified Code(s): R10.84 - Generalized abdominal pain - Discharge Information Referrals: Summer Tijerina PA-C [Primary Care Provider] - Forms: ED Department Discharge Additional Instructions: Continue to use Percocet as needed for pain control, please call the [facility] in the morning for an appointment time with Dr. Russ in the next 1-2 days - Assessment/Plan Plan: Assessment Acuity = acute Site and laterality = abdominal pain status post multiple surgical interventions Etiology = probably related to ongoing surgical wound healing Manifestations = none Location of injury = Home Lab values = CBC unremarkable potassium low at 3.2 consistent hypokalemia urinalysis unremarkable Plan I did review lab work with her prescription written for Percocet 5/325 one tab by mouth every 6 hours when necessary total #6 she will follow-up with surgical department in one to 2 days for reevaluation This note was dictated using [employer] voice recognition software please call with any questions on syntax or grammar.
[2018-08-31 21:47] VITALS: BP 123/75
== END 2018-08-31 22:09 | disposition home or self-care (01) ==
LOC: JP.ED 20:24
DX: R10.84 Generalized abdominal pain (principal); K21.9 Gastro-esophageal reflux disease without esophagitis; M19.90 Unspecified osteoarthritis, unspecified site; E11.9 Type 2 diabetes mellitus without complications; F32.9 Major depressive disorder, single episode, unspecified; Z79.899 Other long term (current) drug therapy; Z88.8 Allergy status to other drugs, medicaments and biological substances; Z98.84 Bariatric surgery status; Z90.49 Acquired absence of other specified parts of digestive tract
CPT/HCPCS: 36415; 80053; 81001; 83605; 85025; 96372; 99284; J1885

== ENCOUNTER 2018-10-04 22:58 | Emergency (ER) | payer BC ==
[2018-10-04 23:23] VITALS: BP 119/81
[2018-10-04 23:36] VITALS: PULSE 71
[2018-10-05] MEDS ORDERED: predniSONE 20 MG Tab PO ONE (00:16)
--- NOTE | 2018-10-05 00:33 | EDM.PDOC ---
ED HPI GENERAL MEDICAL PROBLEM - General Chief Complaint: Lower Extremity Injury/Pain Stated Complaint: LEG IS SWOLLEN AND PAINFUL NOT AN ACCIDENT Time Seen by Provider: 10/04/18 23:52 Source of Information: Reports: Patient History Limitations: Reports: No Limitations - History of Present Illness INITIAL COMMENTS - FREE TEXT/NARRATIVE: This lady comes in complaining of pain in her left edwards for about the past 6 days. She was seen in clinic told it was a muscle spasm. She said it hurts to stand seems to be swelling and sometimes seems a little bit red. She had a tattoo to her left calf but that was greater than about 2 months ago. - Related Data Allergies Allergy/AdvReac Type Severity Reaction Status Date / Time tioconazole [From Monistat 1] Allergy Rash Verified 10/04/18 23:16 Home Meds: Home Meds Docusate Sodium [Colace] 1 tab PO BID 04/25/13 [History] Vitamin B Complex [B Complex] 1 each PO DAILY 04/25/13 [History] Bisacodyl [Dulcolax] 3 tab PO BEDTIME 01/25/14 [History] Cholecalciferol (Vitamin D3) [Vitamin D3] 5,000 unit PO DAILY 01/25/14 [History] Cyanocobalamin (Vitamin B-12) [B-12] 2,500 mcg SL DAILY 01/25/14 [History] Gabapentin [Neurontin] 600 mg PO BID 01/25/14 [History] Montelukast Sodium 10 mg PO BEDTIME 07/22/17 [History] Norethindrone-Ethinyl Estrad [Nortrel 1-35 21 Tablet] 1 tab PO DAILY 08/09/17 [ History] Omeprazole 40 mg PO DAILY 12/20/17 [History] Sennosides/Docusate Sodium [Senokot-S Tablet] 4 each PO BID 12/20/17 [History] Celecoxib [CeleBREX] 100 mg PO BID 08/06/18 [History] DULoxetine [Cymbalta] 20 mg PO DAILY 08/06/18 [History] Lubiprostone [Amitiza] 24 mcg PO BID 10/04/18 [History] Past Medical History HEENT History: Reports: Allergic Rhinitis, Impaired Vision, Otitis Media Cardiovascular History: Reports: High Cholesterol Respiratory History: Reports: Asthma Gastrointestinal History: Reports: Bowel Obstruction, Cholelithiasis, Chronic Constipation, GERD, Irritable Bowel Syndrome Genitourinary History: Reports: None [employer] History: Reports: Musculoskeletal History: Reports: Osteoarthritis, Other (See Below) Other Musculoskeletal History: carpal tunnel Neurological History: Reports: Other (See Below) Other Neuro History: restless leg Psychiatric History: Reports: Depression Endocrine/Metabolic History: Reports: Diabetes, Type II, Vitamin D Deficiency Hematologic History: Reports: Anemia, B12 Deficiency, Folic Acid, Iron Deficiency Immunologic History: Reports: None Oncologic (Cancer) History: Reports: None Dermatologic History: Reports: None - Infectious Disease History Infectious Disease History: Reports: Chicken Pox - Past Surgical History Head Surgeries/Procedures: Reports: None HEENT Surgical History: Reports: None Cardiovascular Surgical History: Reports: None Respiratory Surgical History: Reports: None GI Surgical History: Reports: Bariatric Procedure, Cholecystectomy, Colon, Colonoscopy, EGD, Hernia, Abdominal Female Surgical History: Reports: Section Endocrine Surgical History: Reports: None Neurological Surgical History: Reports: None Musculoskeletal Surgical History: Reports: Arthroscopic Knee, Ganglion Cyst, Shoulder Surgery Dermatological Surgical History: Reports: None Social & Family History - Family History Family Medical History: Noncontributory - Tobacco Use Smoking Status *Q: Never Smoker - Caffeine Use Caffeine Use: Reports: Energy Drinks, Soda Caffeine Use Comment: daily iced tea - Recreational Drug Use Recreational Drug Use: No Review of Systems - Review of Systems Review Of Systems: ROS reveals no pertinent complaints other than HPI. ED EXAM, GENERAL - Physical Exam Exam: See Below Exam Limited By: No Limitations General Appearance: Alert, WD/WN Extremities: Other (Grossly normal appearing left lower leg. It's slightly red anteriorly because she's had an ice pack on it. Definitely feel some grating to the flexor tendons to the anterior lower leg when she flexes and extends the ankle.) Course - Vital Signs Last Recorded V/S: Last Vital Signs Temp 36.0 C 10/04/18 23:35 Pulse 71 10/04/18 23:35 Resp 17 10/04/18 23:35 BP 119/81 10/04/18 23:35 Pulse Ox 98 10/04/18 23:35 - Orders/Labs/Meds Meds: Medications Discontinued Medications Generic Name Dose Route Start Last Admin Trade Name Sasha PRN Reason Stop Dose Admin Prednisone 20 mg 10/05/18 00:16 10/05/18 00:25 Prednisone PO 10/05/18 00:17 20 mg ONETIME ONE Administration Departure - Departure Time of Disposition: 00:29 Disposition: Home, Self-Care 01 Condition: Fair Clinical Impression: Tenosynovitis of left lower leg - Discharge Information Referrals: Summer Tijerina PA-C [Primary Care Provider] - Additional Instructions: Apply a cold pack to the area several times per day. Keep the leg elevated when you are able. Stay off of it as much as you can. Take prednisone 20 mg once or twice daily. Note that there is an interaction between prednisone and control pills that will make the prednisone levels in your blood go up so use the lowest dose of prednisone that is effective. Take Tylenol for pain. If you're able to then also take some naproxen 220 mg one or 2 tablets twice daily. That can cause some GI problems so use your best judgment. If you're no better in a few days you may follow-up with the orthopedic surgeon who may inject the tendon.
== END 2018-10-05 00:47 | disposition home or self-care (01) ==
LOC: JP.ED 22:58
DX: M65.862 Other synovitis and tenosynovitis, left lower leg (principal); E78.00 Pure hypercholesterolemia, unspecified; K21.9 Gastro-esophageal reflux disease without esophagitis; E11.9 Type 2 diabetes mellitus without complications; F32.9 Major depressive disorder, single episode, unspecified; Z88.8 Allergy status to other drugs, medicaments and biological substances; Z79.899 Other long term (current) drug therapy
CPT/HCPCS: 99282; A9270

== ENCOUNTER 2018-11-08 17:19 | Emergency (ER) | payer BC ==
[2018-11-08 17:30] VITALS: BP 108/72
[2018-11-08] MEDS ORDERED: Metoclopramide 10 MG Tab PO ONE (18:04)
--- NOTE | 2018-11-08 18:10 | EDM.PDOC ---
ED HPI GENERAL MEDICAL PROBLEM - General Chief Complaint: Abdominal Pain Stated Complaint: ABDOMINAL PAIN Time Seen by Provider: 11/08/18 17:48 Source of Information: Reports: Patient History Limitations: Reports: No Limitations - History of Present Illness INITIAL COMMENTS - FREE TEXT/NARRATIVE: 48 yo female with extensive ABD surgical hx presents with ventral hernia and mild nausea. she has appt with surgery on Fri of this week. no emesis. She was able to work the full day. ABD pain is described as very uncomfortable. She does have mass she is able to reduce. afebrile. BM soft and daily. denies dysuria Abdominal Pain Score (Numeric/FACES): 7 - Related Data Allergies Allergy/AdvReac Type Severity Reaction Status Date / Time tioconazole [From Monistat 1] Allergy Rash Verified 10/04/18 23:16 Home Meds: Home Meds Docusate Sodium [Colace] 1 tab PO BID 04/25/13 [History] Vitamin B Complex [B Complex] 1 each PO DAILY 04/25/13 [History] Bisacodyl [Dulcolax] 3 tab PO BEDTIME 01/25/14 [History] Cholecalciferol (Vitamin D3) [Vitamin D3] 5,000 unit PO DAILY 01/25/14 [History] Cyanocobalamin (Vitamin B-12) [B-12] 2,500 mcg SL DAILY 01/25/14 [History] Gabapentin [Neurontin] 600 mg PO BID 01/25/14 [History] Montelukast Sodium 10 mg PO BEDTIME 07/22/17 [History] Norethindrone-Ethinyl Estrad [Nortrel 1-35 21 Tablet] 1 tab PO DAILY 08/09/17 [ History] Omeprazole 40 mg PO DAILY 12/20/17 [History] Sennosides/Docusate Sodium [Senokot-S Tablet] 4 each PO BID 12/20/17 [History] Celecoxib [CeleBREX] 100 mg PO BID 08/06/18 [History] DULoxetine [Cymbalta] 20 mg PO DAILY 08/06/18 [History] Lubiprostone [Amitiza] 24 mcg PO BID 10/04/18 [History] Potassium Chloride [Klor-Con M20] 40 meq PO DAILY 11/08/18 [History] Past Medical History HEENT History: Reports: Allergic Rhinitis, Impaired Vision, Otitis Media Cardiovascular History: Reports: High Cholesterol Respiratory History: Reports: Asthma Gastrointestinal History: Reports: Bowel Obstruction, Cholelithiasis, Chronic Constipation, GERD, Irritable Bowel Syndrome Genitourinary History: Reports: None 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: Musculoskeletal History: Reports: Osteoarthritis, Other (See Below) Other Musculoskeletal History: carpal tunnel Neurological History: Reports: Other (See Below) Other Neuro History: restless leg Psychiatric History: Reports: Depression Endocrine/Metabolic History: Reports: Diabetes, Type II, Vitamin D Deficiency Hematologic History: Reports: Anemia, B12 Deficiency, Folic Acid, Iron Deficiency Immunologic History: Reports: None Oncologic (Cancer) History: Reports: None Dermatologic History: Reports: None - Infectious Disease History Infectious Disease History: Reports: Chicken Pox - Past Surgical History Head Surgeries/Procedures: Reports: None HEENT Surgical History: Reports: None Cardiovascular Surgical History: Reports: None Respiratory Surgical History: Reports: None GI Surgical History: Reports: Bariatric Procedure, Cholecystectomy, Colon, Colonoscopy, EGD, Hernia, Abdominal Female Surgical History: Reports: Section Endocrine Surgical History: Reports: None Neurological Surgical History: Reports: None Musculoskeletal Surgical History: Reports: Arthroscopic Knee, Ganglion Cyst, Shoulder Surgery Dermatological Surgical History: Reports: None Social & Family History - Family History Family Medical History: Noncontributory - Tobacco Use Smoking Status *Q: Never Smoker - Caffeine Use Caffeine Use: Reports: Energy Drinks Caffeine Use Comment: daily iced tea - Recreational Drug Use Recreational Drug Use: No ED ROS GENERAL - Review of Systems Review Of Systems: See Below Constitutional: Denies: Fever, Chills Respiratory: Denies: Shortness of Breath, Wheezing Cardiovascular: Denies: Chest Pain GI/Abdominal: Reports: Abdominal Pain. Denies: Constipation, Diarrhea ED EXAM, GI/ABD - Physical Exam Exam: See Below Exam Limited By: No Limitations General Appearance: Alert, WD/WN, No Apparent Distress Respiratory/Chest: No Respiratory Distress, Lungs Clear, Normal Breath Sounds. No: Crackles, Rhonchi, Wheezing Cardiovascular: Regular Rate, Rhythm, No Murmur GI/Abdominal Exam: Normal Bowel Sounds, Soft, Non-Tender, No Organomegaly, No Distention, Mass (reducable left sided vental hernia) Course - Vital Signs Last Recorded V/S: Last Vital Signs Temp 36.3 C 11/08/18 17:40 Pulse 85 11/08/18 17:40 Resp 14 11/08/18 17:40 BP 108/72 11/08/18 17:40 Pulse Ox 98 11/08/18 17:40 - Orders/Labs/Meds Orders: Active Orders 24 hr Category Date Time Status Acetaminophen/oxyCODONE [Percocet 325-5 MG] Med 11/08/18 18:32 Once 1 tab PO ONETIME ONE Labs: Laboratory Tests 11/08/18 11/08/18 Range/Units 17:37 18:15 WBC 7.8 (4.5-11.0) K/uL RBC 4.40 (3.30-5.50) M/uL Hgb 12.4 (12.0-15.0) g/dL Hct 38.8 (36.0-48.0) % MCV 88 (80-98) fL MCH 28 (27-31) pg MCHC 32 (32-36) % Plt Count 325 (150-400) K/uL Neut % (Auto) 64 (36-66) % Lymph % (Auto) 28 (24-44) % [place] % (Auto) 5 (2-6) % Eos % (Auto) 4 (2-4) % Baso % (Auto) 0 (0-1) % Urine Color Yellow (YELLOW) Urine Appearance Clear (CLEAR) Urine pH 6.0 (5.0-8.0) Ur Specific [place] 1.010 (1.008-1.030) Urine Protein Negative (NEGATIVE) mg/dL Urine Glucose (UA) Normal (NEGATIVE) mg/dL Urine Ketones Negative (NEGATIVE) mg/dL Urine Occult Blood Trace-intact H (NEGATIVE) Urine Nitrite Negative (NEGATIVE) Urine Bilirubin Negative (NEGATIVE) Urine Urobilinogen Normal (0.2-1.0) EU/dL Ur Leukocyte Esterase Negative (NEGATIVE) Urine RBC 0-5 (0-5) Urine WBC Not seen (0-5) Ur Epithelial Cells Not seen Amorphous Sediment Not seen Urine Bacteria Not seen Urine Mucus Not seen Meds: Medications Discontinued Medications Generic Name Dose Route Start Last Admin Trade Name Freq PRN Reason Stop Dose Admin Ketorolac Tromethamine 60 mg 11/08/18 18:21 11/08/18 18:27 Toradol IM 11/08/18 18:22 60 mg ONETIME ONE Administration Metoclopramide HCl 10 mg 08/25/19 18:04 11/08/18 18:15 Reglan PO 11/08/18 18:05 10 mg ONETIME ONE Administration - Re-Assessments/Exams Free Text/Narrative Re-Assessment/Exam: 11/08/18 18:32 CBC normal, UA non-indicative of UTI. given pain relieving medication and instructed to follow-up with surgeon Departure - Departure Time of Disposition: 18:33 Disposition: Home, Self-Care 01 Condition: Good Clinical Impression: Abdominal pain Qualifiers: Abdominal location: generalized Qualified Code(s): R10.84 - Generalized abdominal pain Ventral hernia Qualifiers: Obstruction and gangrene presence: without obstruction or gangrene Qualified Code(s): K43.9 - Ventral hernia without obstruction or gangrene - Discharge Information *PRESCRIPTION DRUG MONITORING PROGRAM REVIEWED*: Yes *COPY OF PRESCRIPTION DRUG MONITORING REPORT IN PATIENT CARRILLO: Not Applicable Instructions: Hernia, Adult Referrals: Summer Tijerina PA-C [Primary Care Provider] - Forms: ED Department Discharge Additional Instructions: Rest increase fluids to 1-1.5 liters per day follow-up with surgeon - My Orders Last 24 Hours: My Active Orders 11/08/18 18:32 Acetaminophen/oxyCODONE [Percocet 325-5 MG] 1 tab PO ONETIME ONE - Assessment/Plan Last 24 Hours: My Active Orders 11/08/18 18:32 Acetaminophen/oxyCODONE [Percocet 325-5 MG] 1 tab PO ONETIME ONE
[2018-11-08] MEDS ORDERED: Ketorolac 60 MG/2 ML SDV IM ONE (18:21)
[2018-11-08] MEDS ORDERED: Acetaminophen/oxyCODONE 325-5 MG Tab PO ONE (18:32)
== END 2018-11-08 18:55 | disposition home or self-care (01) ==
LOC: JP.ED 17:19
DX: K43.9 Ventral hernia without obstruction or gangrene (principal); E78.00 Pure hypercholesterolemia, unspecified; K21.9 Gastro-esophageal reflux disease without esophagitis; E11.9 Type 2 diabetes mellitus without complications; Z88.8 Allergy status to other drugs, medicaments and biological substances; Z79.899 Other long term (current) drug therapy
CPT/HCPCS: 36415; 81001; 85025; 96372; 99284; A9270; J1885

== ENCOUNTER 2018-11-11 14:18 | Observation (INO) | payer BC ==
[2018-11-11] MEDS ORDERED: Ondansetron 4 MG/2 ML SDV IVPUSH ONE ×2 (14:57→18:14)
[2018-11-11] MEDS ORDERED: HYDROmorphone 0.5 MG/0.5 ML Syringe IVPUSH ONE ×2 (14:57→18:10)
[2018-11-11] MEDS ORDERED: Lactated Ringers 1,000 ML IV SCH (15:00)
--- NOTE | 2018-11-11 15:04 | EDM.PDOC ---
ED HPI GENERAL MEDICAL PROBLEM - General Chief Complaint: Abdominal Pain Stated Complaint: LEFT SIDE ABD PAIN/NAUSEA Time Seen by Provider: 11/11/18 14:50 Source of Information: Reports: Patient, Old Records, RN History Limitations: Reports: No Limitations - History of Present Illness INITIAL COMMENTS - FREE TEXT/NARRATIVE: 48 yo female with a pHx of gastric bypass presents with abdominal pain and vomiting since this morning. Has been able to keep some liquids down. Last emesis was this nude model. Pain is just below and left of her epigastrium. No fever. Has some nausea now. Called Dr. Russ and was told to come to the ER. Onset: Today Onset Date: 11/11/18 Onset Time: 07:30 Duration: Hour(s):, Constant Location: Reports: Abdomen Quality: Reports: Pressure Severity: Moderate Improves with: Reports: None Worsens with: Reports: Other (? time) Context: Reports: Other (See HPI) Associated Symptoms: Reports: Nausea/Vomiting. 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) Left Abdomen Pain Score (Numeric/FACES): 8 - Related Data Allergies Allergy/AdvReac Type Severity Reaction Status Date / Time tioconazole [From Monistat 1] Allergy Rash Verified 10/04/18 23:16 Home Meds: Home Meds Docusate Sodium [Colace] 1 tab PO BID 04/25/13 [History] Vitamin B Complex [B Complex] 1 each PO DAILY 04/25/13 [History] Bisacodyl [Dulcolax] 3 tab PO BEDTIME 01/25/14 [History] Cholecalciferol (Vitamin D3) [Vitamin D3] 5,000 unit PO DAILY 01/25/14 [History] Cyanocobalamin (Vitamin B-12) [B-12] 2,500 mcg SL DAILY 01/25/14 [History] Gabapentin [Neurontin] 600 mg PO BID 01/25/14 [History] Montelukast Sodium 10 mg PO BEDTIME 07/22/17 [History] Norethindrone-Ethinyl Estrad [Nortrel 1-35 21 Tablet] 1 tab PO DAILY 08/09/17 [ History] Omeprazole 40 mg PO DAILY 12/20/17 [History] Sennosides/Docusate Sodium [Senokot-S Tablet] 4 each PO BID 12/20/17 [History] Celecoxib [CeleBREX] 100 mg PO BID 08/06/18 [History] DULoxetine [Cymbalta] 20 mg PO DAILY 08/06/18 [History] Lubiprostone [Amitiza] 24 mcg PO BID 10/04/18 [History] Potassium Chloride [Klor-Con M20] 40 meq PO DAILY 11/08/18 [History] Past Medical History HEENT History: Reports: Allergic Rhinitis, Impaired Vision, Otitis Media Cardiovascular History: Reports: High Cholesterol Respiratory History: Reports: Asthma Gastrointestinal History: Reports: Bowel Obstruction, Cholelithiasis, Chronic Constipation, GERD, Irritable Bowel Syndrome Genitourinary History: Reports: None 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: Musculoskeletal History: Reports: Osteoarthritis, Other (See Below) Other Musculoskeletal History: carpal tunnel Neurological History: Reports: Other (See Below) Other Neuro History: restless leg Psychiatric History: Reports: Depression Endocrine/Metabolic History: Reports: Diabetes, Type II, Vitamin D Deficiency Hematologic History: Reports: Anemia, B12 Deficiency, Folic Acid, Iron Deficiency Immunologic History: Reports: None Oncologic (Cancer) History: Reports: None Dermatologic History: Reports: None - Infectious Disease History Infectious Disease History: Reports: Chicken Pox - Past Surgical History Head Surgeries/Procedures: Reports: None HEENT Surgical History: Reports: None Cardiovascular Surgical History: Reports: None Respiratory Surgical History: Reports: None GI Surgical History: Reports: Bariatric Procedure, Cholecystectomy, Colon, Colonoscopy, EGD, Hernia, Abdominal Female Surgical History: Reports: Section Endocrine Surgical History: Reports: None Neurological Surgical History: Reports: None Musculoskeletal Surgical History: Reports: Arthroscopic Knee, Ganglion Cyst, Shoulder Surgery Dermatological Surgical History: Reports: None Social & Family History - Family History Family Medical History: Noncontributory - Tobacco Use Smoking Status *Q: Former Smoker Used Tobacco, but Quit: Yes Month/Year Tobacco Last Used: 2010 - Caffeine Use Caffeine Use: Reports: Energy Drinks Caffeine Use Comment: daily iced tea - Recreational Drug Use Recreational Drug Use: No ED ROS GENERAL - Review of Systems Review Of Systems: See Below Constitutional: Reports: No Symptoms HEENT: Reports: No Symptoms Respiratory: Reports: No Symptoms Cardiovascular: Reports: No Symptoms Endocrine: Reports: No Symptoms GI/Abdominal: Reports: Abdominal Pain, Nausea, Vomiting. Denies: Anorexia, Black Stool, Bloody Stool, Constipation, Diarrhea, Decreased Appetite, Distension, Flatus, Hematemesis, Hematochezia, Melena : Reports: No Symptoms Musculoskeletal: Reports: No Symptoms Skin: Reports: No Symptoms Neurological: Reports: No Symptoms ED EXAM, GI/ABD - Physical Exam Exam: See Below Exam Limited By: No Limitations General Appearance: Alert, WD/WN, No Apparent Distress Eyes: Bilateral: Normal Appearance Ears: Normal External Exam, Normal Canal, Hearing Grossly Normal, Normal TMs Nose: Normal Inspection, No Blood Throat/Mouth: Normal Inspection, Normal Lips, Normal Oropharynx, Normal Voice, No Airway Compromise Head: Atraumatic, Normocephalic Neck: Normal Inspection, Supple, Non-Tender Respiratory/Chest: No Respiratory Distress, Lungs Clear, Normal Breath Sounds, No Accessory Muscle Use Cardiovascular: Regular Rate, Rhythm, No Edema GI/Abdominal Exam: Distended, Tender, Hernia (? palpable hernia to the L upper/ mid abdomen). No: Normal Bowel Sounds, Soft, Non-Tender, No Distention, Guarding, Rigid, Rebound Back Exam: Normal Inspection. No: CVA Tenderness (R), CVA Tenderness (L) Extremities: Normal Inspection, Normal Range of Motion, Non-Tender, No Pedal Edema Neurological: Alert, Oriented, CN II-XII Intact, Normal Cognition, No Motor/ Sensory Deficits Psychiatric: Normal Affect, Normal Mood Skin Exam: Warm, Dry, Intact, Normal Color, No Rash Course - Vital Signs Text/Narrative:: Dr. Russ called @ 1636h, Dr. Vega called @ 1645 Last Recorded V/S: Last Vital Signs Temp 36.5 C 11/11/18 14:36 Pulse 76 11/11/18 16:32 Resp 14 11/11/18 16:32 BP 107/70 11/11/18 16:32 Pulse Ox 98 11/11/18 16:32 - Orders/Labs/Meds Orders: Active Orders 24 hr Category Date Time Status Lactated Ringers [Ringers, Lactated] 1,000 ml Med 11/11/18 15:00 Active IV ASDIRECTED Medication Orders Lactated Ringer's (Ringers, Lactated) 1,000 mls @ 150 mls/hr IV ASDIRECTED NAVA Last Admin: 11/11/18 15:37 Dose: 150 mls/hr Labs: Laboratory Tests 11/11/18 11/11/18 Range/Units 15:02 15:02 WBC 7.1 (4.5-11.0) K/uL RBC 4.89 (3.30-5.50) M/uL Hgb 13.8 (12.0-15.0) g/dL Hct 43.3 (36.0-48.0) % MCV 89 (80-98) fL MCH 28 (27-31) pg MCHC 32 (32-36) % Plt Count 335 (150-400) K/uL Sodium 140 (140-148) mmol/L Potassium 3.9 (3.6-5.2) mmol/L Chloride 107 (100-108) mmol/L Carbon Dioxide 26 (21-32) mmol/L Anion Gap 7.2 (5.0-14.0) mmol/L BUN 14 (7-18) mg/dL Creatinine 0.8 (0.6-1.0) mg/dL Est Cr Clr Drug Dosing 79.07 mL/min Estimated GFR (MDRD) > 60 (>60) Glucose 90 (74-106) mg/dL Calcium 8.7 (8.5-10.1) mg/dL Meds: Medications Generic Name Dose Route Start Last Admin Trade Name Freq PRN Reason Stop Dose Admin Lactated Ringer's 1,000 mls @ 150 mls/hr 11/11/18 15:00 11/11/18 15:37 Ringers, Lactated IV 150 mls/hr ASDIRECTED NAVA Administration Discontinued Medications Generic Name Dose Route Start Last Admin Trade Name Freq PRN Reason Stop Dose Admin Hydromorphone HCl 0.5 mg 11/11/18 14:57 11/11/18 15:44 Dilaudid IVPUSH 11/11/18 14:58 0.5 mg ONETIME ONE Administration Sodium Chloride 75 mls @ 3.5 mls/sec 11/11/18 15:23 11/11/18 16:15 Normal Saline IV 11/11/18 15:24 2.5 mls/sec ONETIME ONE Administration Iopamidol 100 ml 11/11/18 15:23 11/11/18 16:14 Isovue-300 (61%) IV 11/11/18 15:24 100 ml ONETIME ONE Administration Ondansetron HCl 4 mg 11/11/18 14:57 11/11/18 15:38 Zofran IVPUSH 11/11/18 14:58 4 mg ONETIME ONE Administration Sodium Chloride 10 ml 11/11/18 15:23 11/11/18 16:14 Saline Flush FLUSH 11/11/18 15:24 10 ml ONETIME ONE Administration - Radiology Interpretation Free Text/Narrative:: CT abd/pelvis with IV contrast-IMPRESSIONS: 1. There is a dilated patulous sigmoid anastomosis present in the right upper quadrant measuring 6.7 cm in maximal short axis diameter. Moderate gaseous distention of the transverse colon is noted. Findings may be due to colonic ileus. 2. Small bowel loops within the pelvis are fluid-filled and mildly distended with no definite transition point seen. Clinical correlation and follow-up is recommended as this may be due to adynamic ileus. CT Results Date: 11/11/18 Departure - Departure Time of Disposition: 17:00 Disposition: Admitted As Inpatient 68 Condition: Fair Clinical Impression: Ileus Abdominal pain Qualifiers: Abdominal location: generalized Qualified Code(s): R10.84 - Generalized abdominal pain - Discharge Information *PRESCRIPTION DRUG MONITORING PROGRAM REVIEWED*: No *COPY OF PRESCRIPTION DRUG MONITORING REPORT IN PATIENT CARRILLO: No Referrals: Summer Tijerina PA-C [Primary Care Provider] - Forms: ED Department Discharge - My Orders Last 24 Hours: My Active Orders 11/11/18 15:00 Lactated Ringers [Ringers, Lactated] 1,000 ml IV ASDIRECTED - Assessment/Plan Last 24 Hours: My Active Orders 11/11/18 15:00 Lactated Ringers [Ringers, Lactated] 1,000 ml IV ASDIRECTED
[2018-11-11] MEDS ORDERED: Iopamidol 500 ML BOTTLE IV ONE (15:23)
[2018-11-11] MEDS ORDERED: Sodium Chloride 0.9% 10 ML Syringe FLUSH ONE (15:23)
[2018-11-11] MEDS ORDERED: Sodium Chloride 0.9% 75 ML IV ONE (15:23)
--- NOTE | 2018-11-11 16:39 | CRLCT ---
INDICATION: Abdomen pain, history of gastric bypass TECHNIQUE: CT Abdomen and pelvis with i.v. contrast. Coronal and sagittal reformats were obtained. CONTRAST: 100 mL Isovue 300 COMPARISON: 09/07/2018 FINDINGS: Lower chest: Unremarkable. Liver: Unremarkable. Spleen: Unremarkable. Pancreas: Unremarkable. Gallbladder: Previous cholecystectomy noted with mild intra and extrahepatic biliary ductal dilatation seen. Kidney: Unremarkable. No kidney or ureteral stones or obstruction seen. Adrenal: Unremarkable. Bowel: There is a dilated patulous sigmoid anastomosis present in the right upper quadrant measuring 6.7 cm in maximal short axis diameter. Moderate gaseous distention of the transverse colon is noted. Previous antegastric-antecolic gastric bypass noted with no definite obstruction of the biliopancreatic limb or [place]-en-Y loop seen. Small bowel loops within the pelvis are fluid-filled and mildly distended with no definite transition point seen. The patient is status post right hemicolectomy. Vascular: Unremarkable. Lymph: Unremarkable. Peritoneum: Unremarkable. No pneumoperitoneum is seen. No significant ascites is noted. Pelvis: Unremarkable. Soft tissue: Unremarkable. Bone: Bilateral chronic pars defects of L5 noted with no significant anterolisthesis of L5-S1 noted. IMPRESSIONS: 1. There is a dilated patulous sigmoid anastomosis present in the right upper quadrant measuring 6.7 cm in maximal short axis diameter. Moderate gaseous distention of the transverse colon is noted. Findings may be due to colonic ileus. 2. Small bowel loops within the pelvis are fluid-filled and mildly distended with no definite transition point seen. Clinical correlation and follow-up is recommended as this may be due to adynamic ileus. Dictated by Gael Catalan MD @ 11/11/2018 4:38:27 PM Please note that all CT scans at this facility use dose modulation, iterative reconstruction, and/or weight-based dosing when appropriate to reduce radiation dose to as low as reasonably achievable. Dictated by: Gael Catalan MD @ 11/11/2018 16:38:50 (Electronically Signed)
--- NOTE | 2018-11-11 17:22 | PCM.HP.2 ---
H&P History of Present Illness - General Date of Service: 11/11/18 Admit Problem/Dx: Admission Diagnosis/Problem Admission Diagnosis/Problem Abdominal pain Source of Information: Patient, Provider History Limitations: Reports: No Limitations - History of Present Illness Initial Comments - Free Text/Narative: CC: my stomach hurts and I am nauseated HPI: Geovanni presents to the emergency room today with 2 weeks of off and on and progressive abdominal pain. Over the past 2 days she has had a more impressive progression of the pain. She describes severe and sharp pains that started in her mid to left abdomen especially on the upper half and then radiate down into the left into the lower quadrant. Pains, and go in waves but there always seems to be some level of discomfort. No obvious trigger to make the pain worse. Eating does make her nauseated. She has been taking naproxen at home without any improvement in the pain. Pain is similar to previous episodes when she's had a bowel obstruction. She has continued to have soft to loose bowel movements though she thinks the quantity has been decreased for the past 2 days. Her bowel movements are normally like this because of all of her bowel stimulating medications. She had 2 episodes of vomiting this morning and is nearly constantly nauseated. She has not had any fevers or chills. She has not had any shortness of breath or chest pain. No change in bladder habits. No sick contacts. She is scheduled for a hernia repair next week. Workup in the emergency room included laboratory studies in the CT scan. Labs were all normal. CT scan of the abdomen and pelvis revealed a dilated anastomosis between the small bowel and sigmoid colon in the right upper quadrant as well as some dilated loops of small intestine in the lower abdomen no definite evidence for obstruction or transition point. Patient will be admitted for observation and management of abdominal pain. Left Abdomen Pain Score (Numeric/FACES): 8 - Related Data Allergies/Adverse Reactions: Allergies Allergy/AdvReac Type Severity Reaction Status Date / Time tioconazole [From Monistat 1] Allergy Rash Verified 10/04/18 23:16 Home Medications: Home Meds RX: Docusate Sodium [Colace] 1 tab PO BID 04/25/13 [History] RX: Vitamin B Complex [B Complex] 1 each PO DAILY 04/25/13 [History] RX: Bisacodyl [Dulcolax] 3 tab PO BEDTIME 01/25/14 [History] RX: Cholecalciferol (Vitamin D3) [Vitamin D3] 5,000 unit PO DAILY 01/25/14 [ History] RX: Cyanocobalamin (Vitamin B-12) [B-12] 2,500 mcg SL DAILY 01/25/14 [History] RX: Gabapentin [Neurontin] 600 mg PO BID 01/25/14 [History] RX: Montelukast Sodium 10 mg PO BEDTIME 07/22/17 [History] RX: Norethindrone-Ethinyl Estrad [Nortrel 1-35 21 Tablet] 1 tab PO DAILY [History] Omeprazole 40 mg PO DAILY 12/20/17 [History] RX: Sennosides/Docusate Sodium [Senokot-S Tablet] 4 each PO BID 12/20/17 [ History] Celecoxib [CeleBREX] 100 mg PO BID 08/06/18 [History] DULoxetine [Cymbalta] 20 mg PO DAILY 08/06/18 [History] Lubiprostone [Amitiza] 24 mcg PO BID 10/04/18 [History] RX: Potassium Chloride [Klor-Con M20] 40 meq PO DAILY 11/08/18 [History] Past Medical History HEENT History: Reports: Allergic Rhinitis, Impaired Vision, Otitis Media Cardiovascular History: Reports: High Cholesterol Respiratory History: Reports: Asthma Gastrointestinal History: Reports: Bowel Obstruction, Cholelithiasis, Chronic Constipation, GERD, Irritable Bowel Syndrome Genitourinary History: Reports: None CATEGORY DEVELOPMENT MANAGER History: Reports: Musculoskeletal History: Reports: Osteoarthritis, Other (See Below) Other Musculoskeletal History: carpal tunnel Neurological History: Reports: Other (See Below) Other Neuro History: restless leg Psychiatric History: Reports: Depression Endocrine/Metabolic History: Reports: Diabetes, Type II, Vitamin D Deficiency Hematologic History: Reports: Anemia, B12 Deficiency, Folic Acid, Iron Deficiency Immunologic History: Reports: None Oncologic (Cancer) History: Reports: None Dermatologic History: Reports: None - Infectious Disease History Infectious Disease History: Reports: Chicken Pox - Past Surgical History Head Surgeries/Procedures: Reports: None HEENT Surgical History: Reports: None Cardiovascular Surgical History: Reports: None Respiratory Surgical History: Reports: None GI Surgical History: Reports: Bariatric Procedure, Cholecystectomy, Colon, Colonoscopy, EGD, Hernia, Abdominal Female Surgical History: Reports: Section Endocrine Surgical History: Reports: None Neurological Surgical History: Reports: None Musculoskeletal Surgical History: Reports: Arthroscopic Knee, Ganglion Cyst, Shoulder Surgery Dermatological Surgical History: Reports: None Social & Family History - Family History Family Medical History: Noncontributory - Tobacco Use Smoking Status *Q: Former Smoker Used Tobacco, but Quit: Yes Month/Year Tobacco Last Used: 2010 - Caffeine Use Caffeine Use: Reports: Energy Drinks Caffeine Use Comment: daily iced tea - Recreational Drug Use Recreational Drug Use: No H&P Review of Systems - Review of Systems: Review Of Systems: See Below Free Text/Narrative: A complete 12 point review of systems was obtained. Pertinent positives and negatives are noted in the history of present illness. All other systems were reviewed and were negative except as noted. Exam - Exam Exam: See Below - Vital Signs Vital Signs: Last Vital Signs Temp 36.5 C 11/11/18 14:36 Pulse 76 11/11/18 16:32 Resp 14 11/11/18 16:32 BP 107/70 11/11/18 16:32 Pulse Ox 98 11/11/18 16:32 Weight: 69.1 kg - Exam Quality Assessment: No: Supplemental Oxygen General: Alert, Oriented, Cooperative, Mild Distress HEENT: Conjunctiva Clear. No: Mucosa Moist & [place] (dry), Scleral Icterus Neck: Supple, Trachea Midline. No: Lymphadenopathy Lungs: Clear to Auscultation, Normal Respiratory Effort Cardiovascular: Regular Rate, Regular Rhythm. No: Systolic Murmur GI/Abdominal Exam: Normal Bowel Sounds, Soft, Distended, Tender Back Exam: Normal Inspection, Full Range of Motion Extremities: No Pedal Edema. No: Increased Warmth Skin: Warm, Dry Neuro Extensive - Mental Status: Alert, Oriented x3, Nl Response to Commands Neuro Extensive - Motor, Sensory, Reflexes: No: Dysarthria, Abnormal Motor, Tremor Psychiatric: Alert, Normal Affect - Patient Data Lab Results Last 24 hrs: Laboratory Results - last 24 hr 11/11/18 11/11/18 Range/Units 15:02 15:02 WBC 7.1 (4.5-11.0) K/uL RBC 4.89 (3.30-5.50) M/uL Hgb 13.8 (12.0-15.0) g/dL Hct 43.3 (36.0-48.0) % MCV 89 (80-98) fL MCH 28 (27-31) pg MCHC 32 (32-36) % Plt Count 335 (150-400) K/uL Sodium 140 (140-148) mmol/L Potassium 3.9 (3.6-5.2) mmol/L Chloride 107 (100-108) mmol/L Carbon Dioxide 26 (21-32) mmol/L Anion Gap 7.2 (5.0-14.0) mmol/L BUN 14 (7-18) mg/dL Creatinine 0.8 (0.6-1.0) mg/dL Est Cr Clr Drug Dosing 79.07 mL/min Estimated GFR (MDRD) > 60 (>60) Glucose 90 (74-106) mg/dL Calcium 8.7 (8.5-10.1) mg/dL Result Diagrams: 11/11/18 15:02 11/11/18 15:02 Imaging Impressions Last 24 hrs: CT abd/pelvis - images personally reviewed - s/p GBP surgery. dilation of anastomosis of sigmoid and small intestine in the RUQ. dilation of the colon with gas. several loops of dilated small bowel in pelvis without obvious obstruction. Suspect adynamic ileus. *Q Meaningful Use (ADM) - VTE Risk Assess *Q Each Risk Factor Represents 1 Point: Age 41 - 59 years Total Score 1 Point Risk Factors: 1 Each Risk Factor Represents 2 Points: None Total Score 2 Point Risk Factors: 0 Each Risk Factor Represents 3 Points: None Total Score 3 Point Risk Factors: 0 Each Risk Factor Represents 5 Points: None Total Score 5 Point Risk Factors: 0 Venous Thromboembolism Risk Factor Score *Q: 1 - Problem List (1) Abdominal pain SNOMED Code(s): 07275696 ICD Code: R10.9 - UNSPECIFIED ABDOMINAL PAIN Status: Acute Current Visit : Yes Qualifiers: Abdominal location: generalized Qualified Code(s): R10.84 - Generalized abdominal pain Problem List Initiated/Reviewed/Updated: Yes Orders Last 24hrs: Active Orders 24 hr Category Date Time Status Patient Status Manage Transfer [TRANSFER] Routine ADT 11/11/18 17:10 Active Lactated Ringers [Ringers, Lactated] 1,000 ml Med 11/11/18 15:00 Active IV ASDIRECTED Resuscitation Status Routine Resus Stat 11/11/18 17:12 Ordered Medication Orders Lactated Ringer's (Ringers, Lactated) 1,000 mls @ 150 mls/hr IV ASDIRECTED [facility] Last Admin: 11/11/18 15:37 Dose: 150 mls/hr Assessment/Plan Comment:: ASSESSMENT AND PLAN - Abdominal pain - associated with nausea and some vomiting. History of multiple abdominal surgeries and previous obstructions. She is status post previous right hemicolectomy and small bowel resections. Last surgery was in July of this year. She also has a history of slow transit constipation. Progressive pain which she is unable to tolerate and now has nausea and vomiting. CT scan did not show definite obstruction. -IV fluids -Pain and nausea control -Flat and upright x-ray in the morning -The azithromycin document bowel motility -Surgical consultation with Dr. Russ in the morning History of restless leg syndrome - stable at this time. -Continue home medications Maintenance issues - - DVT prophylaxis - mechanical - GI prophylaxis - PPI - Nutrition - nothing by mouth with ice chips tonight and nothing by mouth after midnight - [place] catheter - not indicated CODE STATUS - full code Admission justification - patient will be referred observation status for management and further workup of her abdominal pain Disposition - I would anticipate discharge home after the hospital stay Primary care physician - Summer Vega M.D. - Mortality Measure Prognosis:: Good
[2018-11-11] MEDS ORDERED: Ondansetron 4 MG Tab.DIS PO PRN (19:34)
[2018-11-11] MEDS ORDERED: LORazepam 2 MG/ML SDV IVPUSH PRN (19:34)
[2018-11-11] MEDS ORDERED: Acetaminophen 325 MG Tab PO PRN (19:34)
[2018-11-11] MEDS ORDERED: Magnesium Hydroxide 400 MG/5 ML Susp 30 ML Cup PO PRN (19:34)
[2018-11-11] MEDS: Ondansetron 4 MG/2 ML SDV IV PRN (20:02)
[2018-11-11] MEDS: HYDROmorphone 1 MG/ML Syringe IVPUSH PRN (20:04)
[2018-11-11] MEDS: Bisacodyl 5 MG Tab PO SCH (21:09)
[2018-11-11] MEDS: Gabapentin 300 MG Cap PO SCH (21:10)
[2018-11-11] MEDS: Montelukast 10 MG Tab PO SCH (21:10)
[2018-11-11] MEDS: Docusate Sodium 100 MG Cap PO SCH (21:10)
[2018-11-11] MEDS ORDERED: Sodium Chloride 0.9% 100 ML ONE (21:22)
[2018-11-11] MEDS: Lactated Ringers 1,000 ML IV SCH (23:50)
[2018-11-12] MEDS: HYDROmorphone 1 MG/ML Syringe IVPUSH PRN (02:48)
[2018-11-12] MEDS: Ondansetron 4 MG/2 ML SDV IV PRN ×2 (02:49→17:21)
--- NOTE | 2018-11-12 04:05 | CRLCR ---
Indication: Ileus Technique: Abdomen 2 view, 3 films Comparison: Abdomen and pelvis CT 11/11/2018 Findings/Impression: Surgical clips are present in the right upper quadrant with suture line in the pelvis. There are mildly dilated loops of small bowel although overall caliber appears mildly reduced compared to the prior exam. No pneumoperitoneum. Dictated by Anil Lamar MD @ Nov 12 2018 4:02AM Signed by Dr. Anil Lamar @ Nov 12 2018 4:04AM
[2018-11-12] MEDS ORDERED: Ketorolac 60 MG/2 ML SDV IM ONE (07:17)
[2018-11-12] MEDS ORDERED: HYDROmorphone 0.5 MG/0.5 ML Syringe IVPUSH PRN (07:20)
[2018-11-12] MEDS: Lactated Ringers 1,000 ML IV SCH ×2 (07:52→16:57)
--- NOTE | 2018-11-12 09:31 | CRLCR ---
INDICATION: Adynamic ileus. TECHNIQUE: Limited upper GI without benefit of fluoroscopy and two-views abdomen and pelvis. Patient had 50 mL of Isovue-300 and 1st images taken immediately and 2nd image 15 minutes after. COMPARISON: Plain film and CT yesterday and 11/11/2018. FINDINGS: Postoperative changes in the abdomen consistent with previous gastric bypass surgery. Contrast flows promptly through the gastric bypass into the jejunum. Twisted mildly prominent loops a jejunum in the midline and left lower abdomen. These small-bowel loops are not frankly dilated and contrast passes distal to them. Moderate gas distention of portions of the transverse and left colon similar to prior exam. Mild gas distention stomach. Findings are nonspecific. More extensive postsurgical changes in the mid and lower abdomen. No free intraperitoneal air. Additional images of the abdomen and pelvis 15 minutes after contrast ingestion show that contrast passes into mildly prominent small bowel loops in the pelvis. Remainder negative. Dictated by Roberto Carlos Han MD @ Nov 12 2018 9:23AM Signed by Dr. Roberto Carlos Han @ Nov 12 2018 9:29AM
[2018-11-12] MEDS: oxyCODONE 5 MG Tab PO PRN ×4 (10:32→23:38)
[2018-11-12] MEDS: Magnesium Sulfate/Water 2 GM in Premix Bag 1 BAG IV SCH ×3 (10:53→19:38)
[2018-11-12] MEDS: Pantoprazole 40 MG Tab.CR PO SCH (10:54)
[2018-11-12] MEDS: Docusate Sodium 100 MG Cap PO SCH ×2 (10:55→21:13)
[2018-11-12] MEDS: NORETHINDRONE ETHINYL ESTRAD PO SCH (10:56)
[2018-11-12] MEDS: DULoxetine 20 MG Cap PO SCH (10:56)
[2018-11-12] MEDS: Potassium Chloride 20 MEQ Tab.ER PO SCH (10:57)
[2018-11-12] MEDS: Gabapentin 300 MG Cap PO SCH ×2 (10:58→21:13)
[2018-11-12] MEDS: Cyanocobalamin (Vitamin B12) 1,000 MCG Tab PO SCH (10:59)
[2018-11-12] MEDS: Vitamin B Complex Tab PO SCH (11:00)
--- NOTE | 2018-11-12 15:43 | PCM.PN ---
- General Info Date of Service: 11/12/18 Subjective Update: No acute events overnight. Still having some pain but no vomiting. No bowel movement this morning. Upper GI study did not reveal significant abnormalities. No fevers. Functional Status: Reports: Pain Controlled, Tolerating Diet - Patient Data Vitals - Most Recent: Last Vital Signs Temp 37.2 C 11/12/18 15:10 Pulse 77 11/12/18 15:10 Resp 16 11/12/18 15:10 BP 94/70 11/12/18 15:10 Pulse Ox 98 11/12/18 10:43 Weight - Most Recent: 74.344 kg I&O - Last 24 Hours: Intake & Output 11/12/18 11/12/18 11/12/18 06:59 14:59 22:59 Intake Total 1057 270 600 Balance 1057 270 600 Lab Results Last 24 Hours: Laboratory Results - last 24 hr 11/12/18 11/12/18 Range/Units 05:11 05:11 WBC 7.0 (4.5-11.0) K/uL RBC 4.36 (3.30-5.50) M/uL Hgb 12.1 (12.0-15.0) g/dL Hct 39.1 (36.0-48.0) % MCV 90 (80-98) fL MCH 28 (27-31) pg MCHC 31 L (32-36) % Plt Count 306 (150-400) K/uL Sodium 140 (140-148) mmol/L Potassium 3.3 L (3.6-5.2) mmol/L Chloride 107 (100-108) mmol/L Carbon Dioxide 27 (21-32) mmol/L Anion Gap 9.3 (5.0-14.0) mmol/L BUN 10 (7-18) mg/dL Creatinine 0.8 (0.6-1.0) mg/dL Est Cr Clr Drug Dosing 79.07 mL/min Estimated GFR (MDRD) > 60 (>60) Glucose 79 (74-106) mg/dL Calcium 8.0 L (8.5-10.1) mg/dL Magnesium 1.7 L (1.8-2.4) mg/dL Med Orders - Current: Current Medications Acetaminophen (Tylenol) 650 mg PO Q4H PRN PRN Reason: Pain (Mild 1-3)/fever Bisacodyl (Dulcolax) 15 mg PO BEDTIME [facility] Last Admin: 11/11/18 21:09 Dose: 15 mg Cyanocobalamin (Vitamin B12) 2,500 mcg PO DAILY [facility] Last Admin: 11/12/18 10:59 Dose: 2,500 mcg Docusate Sodium (Colace) 100 mg PO BID [facility] Last Admin: 11/12/18 10:55 Dose: 100 mg Duloxetine HCl (Cymbalta) 20 mg PO DAILY [facility] Last Admin: 11/12/18 10:56 Dose: 20 mg Gabapentin (Neurontin) 600 mg PO BID [facility] Last Admin: 11/12/18 10:58 Dose: 600 mg Hydromorphone HCl (Dilaudid) 0.5 mg IVPUSH Q2H PRN PRN Reason: Pain (severe 7-10) Azithromycin 250 mg/ Sodium (Chloride) 150 mls @ 150 mls/hr IV BID [facility] Last Admin: 11/12/18 13:13 Dose: 150 mls/hr Lactated Ringer's (Ringers, Lactated) 1,000 mls @ 125 mls/hr IV ASDIRECTED [facility] Last Admin: 11/12/18 07:52 Dose: 125 mls/hr Magnesium Sulfate 2 gm/ Premix 50 mls @ 25 mls/hr IV Q6H [facility] Stop: 11/15/18 03:59 Last Admin: 11/12/18 15:04 Dose: 25 mls/hr Lorazepam (Ativan) 0.5 mg IVPUSH Q4H PRN PRN Reason: Nausea/Vomiting Magnesium Hydroxide (Milk Of Magnesia) 30 ml PO Q12H PRN PRN Reason: Constipation Montelukast Sodium (Singulair) 10 mg PO BEDTIME [facility] Last Admin: 11/11/18 21:10 Dose: 10 mg (Lubiprostone [ Amitiza] 24 Mcg)*Pt Own Med* 24 mcg PO BIDMEALS [facility] Last Admin: 11/12/18 10:53 Dose: 24 mcg Norethindrone- Ethinyl Estrad ( Nortrel 1-35) Tab Pom 1 tab PO DAILY [facility] Last Admin: 11/12/18 10:56 Dose: 1 tab Ondansetron HCl (Zofran Odt) 4 mg PO Q6H PRN PRN Reason: Nausea able to take PO Last Admin: 11/12/18 13:53 Dose: 4 mg Ondansetron HCl (Zofran) 4 mg IV Q6H PRN PRN Reason: Nausea/Vomiting Last Admin: 11/12/18 02:49 Dose: 4 mg Oxycodone HCl (Oxycodone) 5 - 10 mg PO Q4H PRN PRN Reason: Pain Last Admin: 11/12/18 15:04 Dose: 10 mg Pantoprazole Sodium (Protonix) 40 mg PO ACBREAKFAST [facility] Last Admin: 11/12/18 10:54 Dose: 40 mg Potassium Chloride (Klor-Con M20) 40 meq PO DAILY [facility] Last Admin: 11/12/18 10:57 Dose: 40 meq Senna/Docusate Sodium (Senna Plus) 4 tab PO BID [facility] Last Admin: 11/12/18 10:58 Dose: 4 tab Vitamin B Complex (Vitamin B Complex) 1 each PO DAILY [facility] Last Admin: 11/12/18 11:00 Dose: 1 each Discontinued Medications Hydromorphone HCl (Dilaudid) 0.5 mg IVPUSH ONETIME ONE Stop: 11/11/18 14:58 Last Admin: 11/11/18 15:44 Dose: 0.5 mg Hydromorphone HCl (Dilaudid) 0.5 mg IVPUSH ONETIME ONE Stop: 11/11/18 18:11 Last Admin: 11/11/18 18:25 Dose: 0.5 mg Hydromorphone HCl (Dilaudid) 0.5 mg IVPUSH Q2H PRN PRN Reason: Pain (severe 7-10) Last Admin: 11/12/18 02:48 Dose: 0.5 mg Lactated Ringer's (Ringers, Lactated) 1,000 mls @ 150 mls/hr IV ASDIRECTED [facility] Last Admin: 11/11/18 15:37 Dose: 150 mls/hr Sodium Chloride (Normal Saline) 75 mls @ 3.5 mls/sec IV ONETIME ONE Stop: 11/11/18 15:24 Last Admin: 11/11/18 16:15 Dose: 2.5 mls/sec Sodium Chloride (Normal Saline) Confirm Administered Dose 100 mls @ as directed .ROUTE .STK-MED ONE Stop: 11/11/18 21:23 Last Admin: 11/11/18 21:35 Dose: Not Given Iopamidol (Isovue-300 (61%)) 100 ml IV ONETIME ONE Stop: 11/11/18 15:24 Last Admin: 11/11/18 16:14 Dose: 100 ml Ketorolac Tromethamine (Toradol) 60 mg IM ONETIME ONE Stop: 11/12/18 07:18 Last Admin: 11/12/18 08:24 Dose: 60 mg Ondansetron HCl (Zofran) 4 mg IVPUSH ONETIME ONE Stop: 11/11/18 14:58 Last Admin: 11/11/18 15:38 Dose: 4 mg Ondansetron HCl (Zofran) 4 mg IVPUSH ONETIME ONE Stop: 11/11/18 18:15 Last Admin: 11/11/18 18:25 Dose: 4 mg Sodium Chloride (Saline Flush) 10 ml FLUSH ONETIME ONE Stop: 11/11/18 15:24 Last Admin: 11/11/18 16:14 Dose: 10 ml - Exam Quality Assessment: No: Supplemental Oxygen General: Alert, Oriented, Cooperative, No Acute Distress Lungs: Clear to Auscultation, Normal Respiratory Effort GI/Abdominal Exam: Soft, No Distention Extremities: No Pedal Edema Psy/Mental Status: Alert, Normal Affect - Problem List & Annotations (1) Abdominal pain SNOMED Code(s): 20124557 Code(s): R10.9 - UNSPECIFIED ABDOMINAL PAIN Status: Acute Current Visit: Yes Qualifiers: Abdominal location: generalized Qualified Code(s): R10.84 - Generalized abdominal pain - Problem List Review Problem List Initiated/Reviewed/Updated: Yes - My Orders Last 24 Hours: My Active Orders 11/11/18 17:12 Resuscitation Status Routine 11/11/18 19:34 Patient Status [ADT] Routine Antiembolic Devices [RC] .Routine Intake and Output [RC] QSHIFT Notify Provider Consults [RC] ASDIRECTED Notify Provider Vital Signs [RC] ASDIRECTED Oxygen Therapy [RC] PRN Up ad [place] [RC] ASDIRECTED VTE/DVT Education [RC] Per Unit Routine Vital Signs [RC] Q4H Consult to Physician [CONS] Routine Acetaminophen [Tylenol] 650 mg PO Q4H PRN LORazepam [Ativan] 0.5 mg IVPUSH Q4H PRN Lactated Ringers [Ringers, Lactated] 1,000 ml IV ASDIRECTED Magnesium Hydroxide [Milk of Magnesia] 30 ml PO Q12H PRN Ondansetron [Zofran ODT] 4 mg PO Q6H PRN Ondansetron [Zofran] 4 mg IV Q6H PRN oxyCODONE 5 - 10 mg PO Q4H PRN Sequential Compression Device [OM.PC] Routine 11/11/18 21:00 Azithromycin [Zithromax] 250 mg Sodium Chloride 0.9% [Normal Saline] 150 ml IV BID Bisacodyl [Dulcolax] 15 mg PO BEDTIME Docusate Sodium [Colace] 100 mg PO BID Docusate Sodium/Sennosides [Senna Plus] 4 tab PO BID Gabapentin [Neurontin] 600 mg PO BID Montelukast [Singulair] 10 mg PO BEDTIME 11/11/18 22:00 Lubiprostone [Amitiza] 24 mcg PO BIDMEALS 11/12/18 07:20 HYDROmorphone [Dilaudid] 0.5 mg IVPUSH Q2H PRN 11/12/18 07:30 Pantoprazole [ProTONIX] 40 mg PO ACBREAKFAST 11/12/18 09:00 Cyanocobalamin (Vitamin B12) [Vitamin B12] 2,500 mcg PO DAILY DULoxetine [Cymbalta] 20 mg PO DAILY Norethindrone-Ethinyl Estrad [Nortrel 1-35 21 Tablet] 1 tab PO DAILY Potassium Chloride [Klor-Con M20] 40 meq PO DAILY Vitamin B Complex 1 each PO DAILY - Plan Plan:: ASSESSMENT AND PLAN - Abdominal pain - most likely secondary to chronic issues with slow colon transit constipation. No acute abnormalities have been identified. X-ray improved today with less distention of the colon but not resolution. Still having pain but otherwise stable. -IV fluids -Pain and nausea control -Flat and upright x-ray in the morning -azithromycin to Augment bowel motility -Surgical consultation with Dr. Russ History of restless leg syndrome - stable at this time. -Continue home medications Maintenance issues - - DVT prophylaxis - mechanical - GI prophylaxis - PPI - Nutrition - bariatric diet Disposition - I would anticipate discharge home after the hospital stay Patient is currently being managed by the bariatric surgical team. The hospitalist team will sign off at this time. Please feel free to contact me if you have specific medical concerns. Michael Vega M.D.
[2018-11-12] MEDS: Bisacodyl 5 MG Tab PO SCH (21:13)
[2018-11-12] MEDS: Montelukast 10 MG Tab PO SCH (21:13)
[2018-11-13] MEDS: Lactated Ringers 1,000 ML IV SCH (02:03)
[2018-11-13] MEDS: Magnesium Sulfate/Water 2 GM in Premix Bag 1 BAG IV SCH ×2 (02:04→09:10)
--- NOTE | 2018-11-13 03:42 | CRLCR ---
Indication: Ileus Technique: Abdomen 2 view, 3 films Comparison: Abdomen 11/12/2018 Findings/Impression: Surgical clips are present in the right upper quadrant. Multiple dilated loops of bowel are present, greater within the left abdomen which appear mildly increased compared to the study 1 day prior. Previously administered oral contrast is noted within the rectum. Dictated by Anil Lamar MD @ Nov 13 2018 3:39AM Signed by Dr. Anil Lamar @ Nov 13 2018 3:41AM
[2018-11-13] MEDS ORDERED: Dextrose 5%-Lactated Ringers 1,000 ML IV SCH (07:00)
[2018-11-13] MEDS ORDERED: Simethicone 80 MG Tab.Chew PO PRN (07:02)
[2018-11-13 07:30] VITALS: BP 96/50
--- NOTE | 2018-11-13 08:10 | CONS ---
DATE OF CONSULT: 11/12/2018 ADMISSION DIAGNOSES: Abdominal pain and nausea. HISTORY OF PRESENT ILLNESS: Geovanni was seen by myself on 11/09/2018, for an incisional hernia. She was scheduled for surgery on 11/17/2018, but unfortunately she developed abdominal pain after she was seen in the clinic. She describes it as severe, sharp pain, felt like a knife stabbing in her middle abdomen, radiating to the left, and then down to the left lower quadrant. Pains would go in waves, and eating makes her nauseated, but does not increase the pain, has been taking naproxen at home. She states pain is the same as if she had a bowel obstruction. Bowels have been working okay. She had 2 bowel movements yesterday and one this morning. A CT scan was done in the emergency department. This morning, she is very sleepy. Reports her pain at 2, has been getting IV morphine that she reports has taken the edge off. CURRENT MEDICATIONS: Colace 1 tab b.i.d.; vitamin B complex 1 daily; dulcolax 3 tabs at bedtime; vitamin D3 5000 units daily; vitamin B12 2500 mcg sublingual daily; Neurontin 600 mg b.i.d.; montelukast sodium 10 mg p.o. at bedtime; Nortrel , 21 tabs one daily; omeprazole 40 mg p.o. daily; Senokot-S 4 tablets twice daily; Celebrex 100 mg b.i.d., Cymbalta 20 mg p.o. daily; Amitiza 24 mcg p.o. b.i.d.; potassium chloride 40 mEq p.o. daily. PAST MEDICAL HISTORY: SP Dashawn-en-Y gastric bypass surgery, unspecified surgical malabsorption, B12 deficiency, allergic rhinitis, high cholesterol, asthma, chronic constipation, irritable bowel syndrome, osteoarthritis, restless legs syndrome, depression, vitamin D deficiency, anemia. PAST SURGICAL HISTORY: She has had multiple surgeries. See past surgical history in [facility]. SOCIAL HISTORY: . Currently working at [employer]. Does not smoke. Quit smoking in 2010. Caffeine use, drinks soda, energy drinks, and daily iced coffee. REVIEW OF SYSTEMS: CONSTITUTIONAL: Denies any fever, chills, night sweats, or fatigue. HEENT: Currently has severe headache she states from no caffeine and has had no teeth for several years. NECK: Negative for pain. CHEST: No chest pain, fast or irregular heart rate. LUNGS: No shortness of breath or cough. ABDOMEN: She has had 2 bowel movements. There is an incisional hernia. Nontender. Last bowel movement was during the night. : Negative for any UTI signs and symptoms. EXTREMITIES: She has joint pain. Recently has had some orthopedic surgery. NEURO: No loss of coordination or dizziness. PSYCHIATRIC: Negative for depression, anxiety, or insomnia. Remainder of review of systems is negative for any pertinent positives and negatives. PHYSICAL EXAMINATION: GENERAL: Geovanni Zaragoza is a 48-year-old female. VITAL SIGNS: Height is 5 feet 5 inches, weight is 163 pounds, BMI 27. TPR 97.8 , 84, 15, blood pressure 101/66. HEENT: Negative. NECK: Supple. HEART: Regular rate and rhythm. LUNGS: Clear. ABDOMEN: Normally distended, no change. Incisional hernia noted on the upper part of incision. Otherwise, soft and minimally tender this morning. : Deferred. EXTREMITIES: Without peripheral edema. Full range of motion. NEUROLOGIC: Cranial nerves 2 through 12 intact. PSYCHIATRIC: Very sleepy. SKIN: Without rash. ASSESSMENT: 1. Recurrent incisional hernia. 2. Partial small bowel obstruction. 3. Status post Dashawn-en-Y gastric bypass surgery. 4. Unspecified surgical malabsorption. 5. B12 deficiency. 6. B1 deficiency. 7. Chronic constipation. 8. History of restless legs syndrome and osteoarthritis. PLAN: 1. Schedule upper GI today with postop 1 upper GI protocol, which is used postop day 1 after Dashawn-en-Y gastric bypass surgery. 2. Check abdominal flat and upright in a.m. 3. Magnesium 2 g IV q.6 x72 hours. 4. Toradol 60 mg IM 1 time for headache. 5. Step 2 gastric bypass diet after upper GI. 6. We will evaluate p.r.n. or in a.m. Sarah Bailey PA-C /[id number] [facility]
[2018-11-13] MEDS ORDERED: Polyethylene Glycol 3350 Powder 119 GM Bottle PO SCH (09:00)
[2018-11-13] MEDS ORDERED: Azithromycin 250 MG Tab PO SCH (09:00)
[2018-11-13] MEDS: Docusate Sodium 100 MG Cap PO SCH (09:13)
[2018-11-13] MEDS: Cyanocobalamin (Vitamin B12) 1,000 MCG Tab PO SCH (09:13)
[2018-11-13] MEDS: DULoxetine 20 MG Cap PO SCH (09:13)
[2018-11-13] MEDS: NORETHINDRONE ETHINYL ESTRAD PO SCH (09:14)
[2018-11-13] MEDS: Vitamin B Complex Tab PO SCH (09:14)
[2018-11-13] MEDS: Potassium Chloride 20 MEQ Tab.ER PO SCH (09:14)
[2018-11-13] MEDS: Gabapentin 300 MG Cap PO SCH (09:14)
[2018-11-13] MEDS: Pantoprazole 40 MG Tab.CR PO SCH (09:14)
--- NOTE | 2018-11-13 09:28 | CONS ---
DATE OF SERVICE: 11/12/2018 REFERRING PHYSICIAN: CONSULTING PHYSICIAN: Sarah Bailey PA-C HISTORY OF PRESENT ILLNESS: Geovanni Zaragoza is a 48-year-old female, whom Surgery Department was asked to see in consultation. Geovanni was seen in the clinic on 11/09/2018 for an incisional hernia. She was having no pain or discomfort at that time. She is scheduled for surgery for that hernia on 11/17/2018. She presented to the emergency room on 11/11/2018 with abdominal pain, which she states is different. She describes it as severe sharp pain that started in her mid to left abdomen and then radiates down from the left upper quadrant to the lower quadrant. Pains come in waves and eating makes her nauseated. She has been taking naproxen with no improvement of pain. She is well aware that naproxen is contraindicated after Dashawn-en-Y gastric bypass surgery, but states the only thing that helps the pain is oxycodone and her primary care provider would not prescribe that for her. Bowel movements have been regular. She does have chronic constipation, so takes quite a bit in the form of bowel regime to keep her bowels working. What prompted her to the emergency room other than the pain is she had episodes of vomiting, which she states is very unusual for her. No fever, chills, night sweats, or fatigue. Denies any other associated signs and symptoms. She was admitted from the emergency room. The CT scan revealed a dilated anastomosis between the small bowel and sigmoid colon. This morning, she states her pain is controlled with IV narcotics, and she also is n.p.o. so has not eaten anything. MEDICATIONS: Colace 1 tablet p.o. b.i.d.; vitamin B complex daily; Dulcolax 3 tabs p.o. at bedtime; vitamin D3, 5000 international units daily; B12, 25 mcg sublingual daily; Neurontin 600 mg p.o. b.i.d.; montelukast sodium 10 mg at bedtime; Nortrel 1/35 (21-Day) 1 daily; omeprazole 40 mg p.o. daily; Senokot S 4 p.o. b.i.d.; Celebrex 100 mg b.i.d.; Cymbalta 20 mg p.o. daily; Amitiza 24 mcg p.o. b.i.d.; potassium chloride 40 mEq p.o. b.i.d. PAST MEDICAL HISTORY: Allergic rhinitis, high cholesterol, asthma, history of several bowel obstructions, chronic constipation, GERD, irritable bowel syndrome, osteoarthritis, restless legs syndrome, depression, vitamin D deficiency, anemia. PAST SURGICAL HISTORY: [facility]. FAMILY HISTORY: Noncontributory for any diabetes, kidney, liver, or cancer. SOCIAL HISTORY: . Employed at [employer]. Does not smoke. Caffeine use; drinks energy drinks daily, iced coffee, and carbonated beverages. Recreational drugs; none. REVIEW OF SYSTEMS: CONSTITUTIONAL: No fever, chills, night sweats, or fatigue. HEAD: Reports a headache right now. Thinks this is from caffeine. NECK: Negative. CHEST: No chest pain, shortness of breath, fast or irregular heartbeat. LUNGS: No cough. ABDOMEN: As above. : Negative for UTI signs and symptoms. EXTREMITIES: Negative for any joint pain or swelling. NEUROLOGIC: No loss of coordination or dizziness. Does have a headache as stated above. PSYCHIATRIC: Negative. PHYSICAL EXAMINATION: GENERAL: Geovanni Zaragoza is a 48-year-old female. VITAL SIGNS: Height is 5 feet 5 inches and weight is 163 pounds. TPR 98, , 16. Blood pressure is 105/59. HEENT: Negative. NECK: Supple. HEART: Regular rate and rhythm. LUNGS: Clear. ABDOMEN: Soft and nontender. Incisional hernia on top part of the incision noted. EXTREMITIES: Without peripheral edema. NEUROLOGIC: Intact. PSYCHIATRIC: Very sleepy. Mood and affect appropriate. ASSESSMENT: 1. Abdominal pain associated with nausea and vomiting. 2. Gastroparesis. 3. Recurrent incisional hernia. 4. Statis post Dashawn-en-Y gastric bypass surgery. 5. Unspecified surgical malabsorption. 6. Vitamin B deficiency. 7. Vitamin D deficiency. 8. History of iron-deficiency anemia. PLAN: 1. Check upper GI with postop 1 gastric bypass protocol. 2. Check abdominal flat and upright in a.m. 3. Start step 2 gastric bypass diet if upper GI negative. 4. We will evaluate p.r.n. or in a.m. Sarah Bailey PA-C /[id number]
--- NOTE | 2018-11-13 11:13 | PN ---
DATE OF SERVICE: 11/13/2018 SUBJECTIVE: Geovanni's upper GI yesterday was negative, and the abdominal flat and upright shows that the contrast has gone through with a small amount in the rectum. She is very sleepy this morning, difficult to converse with, and states she is feeling better. She has not had a bowel movement yet. Has been on a step 2 double portion gastric bypass diet. Denies pain. REVIEW OF SYSTEMS: Remainder of review of systems negative for any pertinent positives and negatives. OBJECTIVE: GENERAL: Geovanni Zaragoza is a pleasant 48-year-old female. VITAL SIGNS: TPR is 98.6, 77, 18; blood pressure 106/64. HEENT: Negative. NECK: Supple. HEART: Regular rate and rhythm. LUNGS: Clear. ABDOMEN: Soft, nontender. EXTREMITIES: Without peripheral edema. ASSESSMENT: 1. Gastroparesis. 2. Chronic constipation. 3. Status post Dashawn-en-Y gastric bypass surgery. 4. Unspecified surgical malabsorption. 5. B12 deficiency. 6. Vitamin D deficiency. 7. History of iron-deficiency anemia. 8. Depression. 9. Restless legs syndrome. PLAN: 1. MiraLAX 119 g b.i.d. today. The first dose now and then repeat within 8 hours. 2. Discontinue lactated Ringer. 3. Rx D5 LR 75 mL per hour. 4. Discontinue oxycodone. 5. Simethicone 80 mg p.o. q.i.d. and bedtime p.r.n. gas and bloating. 6. Discontinue straws. The patient is post Dashawn-en-Y gastric bypass surgery. This will prevent any excessive air in abdomen. We will evaluate p.r.n. or in a.m. Sarah Bailey PA-C /[id number]
--- NOTE | 2018-11-14 07:33 | DISCH ---
ADMISSION DIAGNOSES: Abdominal pain associated with nausea and vomiting, gastroparesis, recurrent incisional hernia, status post Dashawn-en-Y gastric bypass surgery, unspecified surgical malabsorption, B12 deficiency, history of iron deficiency anemia, vitamin D deficiency, and chronic constipation. DISCHARGE DIAGNOSES: Gastroparesis and chronic constipation. HISTORY: Geovanni Zaragoza presented to the emergency room on 11/11/2018 with postprandial abdominal pain, nausea and vomiting. She was admitted to the hospital, had an upper GI which was negative and it was followed by an abdominal flat and upright. The next morning she tolerated a step 2 gastric bypass diet. She was started on Zithromax 250 mg IV b.i.d. for gastroparesis. Her pain was managed on 11/13/2018. She was given MiraLAX and she did have a bowel movement and requested to be discharged to home. She is scheduled for an incisional hernia repair with mesh on 11/17/2018. REVIEW OF SYSTEMS: All 12 systems were reviewed and negative for any pertinent positives and negatives. PHYSICAL EXAMINATION: GENERAL: Geovanni Zaragoza is a 48-year-old female. VITAL SIGNS: Height 5 feet 5 inches and weight is 163 pounds. TPR is 96.5, 69, 16, and blood pressure 96/50. HEENT: Negative. No upper or lower teeth. NECK: Supple. HEART: Regular rate and rhythm. LUNGS: Clear. ABDOMEN: Soft and nontender. GENITOURINARY: Deferred. EXTREMITIES: Negative. NEURO: Cranial nerves 2 through 12 intact. PSYCHIATRIC: Mood and affect appropriate. DISPOSITION: Discharged to home. CONDITION: Stable and improving. FOLLOWUP: Followup appointment postoperatively after her hernia surgery on 11/17/2018. HOME MEDICATIONS: Resume home medications with new medication of Zithromax 250 mg one daily #30. DISCHARGE INSTRUCTIONS: Diet: Step 2 gastric bypass diet until Friday11/16/2018 and n.p.o. after midnight. Activity: As tolerated. May shower. Notify provider if any further nausea or vomiting.
== END 2018-11-13 12:45 | disposition home or self-care (01) ==
LOC: JP.ED 14:18 → JP.2SS 17:10
PROVIDERS: ADMIT Internal Medicine; ATTEND Internal Medicine
DX: K31.84 Gastroparesis (principal); K59.09 Other constipation; K43.2 Incisional hernia without obstruction or gangrene; K91.2 Postsurgical malabsorption, not elsewhere classified; K21.9 Gastro-esophageal reflux disease without esophagitis; E53.8 Deficiency of other specified B group vitamins; E55.9 Vitamin D deficiency, unspecified; E78.00 Pure hypercholesterolemia, unspecified; J45.909 Unspecified asthma, uncomplicated; M19.90 Unspecified osteoarthritis, unspecified site; F32.9 Major depressive disorder, single episode, unspecified; E11.9 Type 2 diabetes mellitus without complications; Z98.84 Bariatric surgery status; Z88.3 Allergy status to other anti-infective agents; Z79.899 Other long term (current) drug therapy; Z79.1 Long term (current) use of non-steroidal anti-inflammatories (NSAID); Z87.891 Personal history of nicotine dependence
CPT/HCPCS: 36415; 74019; 74177; 74240; 80048; 83735; 84443; 85027; 96361; 96365; 96366; 96367; 96368; 96372; 96375; 96376; 99285; A9270; G0378; J0456; J1170; J1885; J2405; J3475; J7030; J7040; J7120; Q9967; 96374

== ENCOUNTER 2019-01-12 22:44 | Emergency (ER) | payer BC ==
[2019-01-12] MEDS ORDERED: Sodium Chloride 0.9% 10 ML Syringe FLUSH PRN (23:36)
[2019-01-12] MEDS ORDERED: HYDROmorphone 0.5 MG/0.5 ML Syringe IVPUSH ONE (23:37)
[2019-01-12] MEDS ORDERED: Ondansetron 4 MG/2 ML SDV IVPUSH ONE (23:37)
--- NOTE | 2019-01-12 23:44 | EDM.PDOC ---
ED HPI GENERAL MEDICAL PROBLEM - General Chief Complaint: Abdominal Pain Stated Complaint: SEVERE ABDOMINAL PAIN Time Seen by Provider: 01/12/19 23:30 Source of Information: Reports: Patient, Old Records, RN History Limitations: Reports: No Limitations - History of Present Illness INITIAL COMMENTS - FREE TEXT/NARRATIVE: 48 yo female here with LLQ abdominal pain for a few days that is worse tonight. Has a pHx of hernia repair in this past month and has had gastric bypass previously. Reports no fever. Has nausea without vomiting. Has had colonoscopy, but has no idea if she had diverticular dz noted on that study-test done in [place]. She reports taking a lot of laxatives/stool softeners to keep her bowels moving normally. No black or bloody stools. Onset: Gradual Duration: Day(s):, Getting Worse Location: Reports: Abdomen (LLQ) Quality: Reports: Ache Severity: Moderate Improves with: Reports: Rest Worsens with: Reports: Movement ( or coughing) Context: Reports: Other (See HPI) Associated Symptoms: Reports: Nausea/Vomiting (no vomiting). 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 (see below) (none) - Related Data Allergies Allergy/AdvReac Type Severity Reaction Status Date / Time tioconazole [From Monistat 1] Allergy Rash Verified 10/04/18 23:16 Home Meds: Home Meds Docusate Sodium [Colace] 250 mg PO BID 04/25/13 [History] Vitamin B Complex [B Complex] 1 each PO DAILY 04/25/13 [History] Bisacodyl [Dulcolax] 3 tab PO BEDTIME 01/25/14 [History] Cholecalciferol (Vitamin D3) [Vitamin D3] 5,000 unit PO DAILY 01/25/14 [History] Cyanocobalamin (Vitamin B-12) [B-12] 2,500 mcg SL DAILY 01/25/14 [History] Montelukast Sodium 10 mg PO BEDTIME 07/22/17 [History] Norethindrone-Ethinyl Estrad [Nortrel 1-35 21 Tablet] 1 tab PO DAILY 08/09/17 [ History] Omeprazole 40 mg PO DAILY 12/20/17 [History] Sennosides/Docusate Sodium [Senokot-S Tablet] 4 each PO BID 12/20/17 [History] Celecoxib [CeleBREX] 100 mg PO BID 08/06/18 [History] DULoxetine [Cymbalta] 60 mg PO DAILY 08/06/18 [History] Lubiprostone [Amitiza] 24 mcg PO BID 10/04/18 [History] Potassium Chloride [Klor-Con M20] 40 meq PO DAILY 11/08/18 [History] Cyclobenzaprine [Flexeril] 10 mg PO Q6H PRN #30 tablet 11/19/18 [Rx] Pregabalin 75 mg PO BID 12/15/18 [History] Past Medical History HEENT History: Reports: Allergic Rhinitis, Impaired Vision, Otitis Media Cardiovascular History: Reports: None Respiratory History: Reports: None Gastrointestinal History: Reports: Bowel Obstruction, Cholelithiasis, Chronic Constipation, GERD, Irritable Bowel Syndrome Genitourinary History: Reports: None 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 bilateral shoulder and knee pain Neurological History: Reports: Other (See Below) Other Neuro History: restless leg Psychiatric History: Reports: Depression Endocrine/Metabolic History: Reports: Vitamin D Deficiency Hematologic History: Reports: Anemia, B12 Deficiency, Folic Acid, Iron Deficiency Immunologic History: Reports: None Oncologic (Cancer) History: Reports: None Dermatologic History: Reports: None - Infectious Disease History Infectious Disease History: Reports: Chicken Pox - Past Surgical History Head Surgeries/Procedures: Reports: None HEENT Surgical History: Reports: None Cardiovascular Surgical History: Reports: None Respiratory Surgical History: Reports: None GI Surgical History: Reports: Bariatric Procedure, Cholecystectomy, Colon, Colonoscopy, EGD, Hernia, Abdominal, Small Bowel Other GI Surgeries/Procedures: several hernias and bowel obstructions Female Surgical History: Reports: Section Endocrine Surgical History: Reports: None Neurological Surgical History: Reports: None Musculoskeletal Surgical History: Reports: Arthroscopic Knee, Ganglion Cyst, Shoulder Surgery Dermatological Surgical History: Reports: None Social & Family History - Family History Family Medical History: Noncontributory - Tobacco Use Smoking Status *Q: Former Smoker Used Tobacco, but Quit: Yes Month/Year Tobacco Last Used: 04/27 - Caffeine Use Caffeine Use: Reports: Soda Caffeine Use Comment: daily iced tea - Recreational Drug Use Recreational Drug Use: No ED ROS GENERAL - Review of Systems Review Of Systems: See Below Constitutional: Reports: No Symptoms HEENT: Reports: No Symptoms Respiratory: Reports: No Symptoms Cardiovascular: Reports: No Symptoms GI/Abdominal: Reports: Abdominal Pain (LLQ), Decreased Appetite, Nausea. Denies : Black Stool, Bloody Stool, Constipation, Diarrhea, Distension, Flatus, Hematemesis, Hematochezia, Melena, Vomiting : Reports: No Symptoms Musculoskeletal: Reports: No Symptoms Skin: Reports: No Symptoms ED EXAM, GI/ABD - Physical Exam Exam: See Below Exam Limited By: No Limitations General Appearance: Alert, WD/WN, No Apparent Distress Eyes: Bilateral: Normal Appearance Ears: Normal External Exam, Normal Canal, Hearing Grossly Normal Nose: Normal Inspection, No Blood Throat/Mouth: Normal Inspection, Normal Lips, Normal Oropharynx, Normal Voice, No Airway Compromise Head: Atraumatic, Normocephalic Neck: Normal Inspection Respiratory/Chest: No Respiratory Distress, Lungs Clear, Normal Breath Sounds, No Accessory Muscle Use Cardiovascular: Regular Rate, Rhythm, No Edema GI/Abdominal Exam: Soft, No Distention, Tender (LLQ), Abnormal Bowel Sounds ( increased). No: Non-Tender, Distended, Guarding, Rigid, Rebound, Hernia Back Exam: Normal Inspection. No: CVA Tenderness (R), CVA Tenderness (L) Extremities: Normal Inspection, Normal Range of Motion, Non-Tender, No Pedal Edema Neurological: Alert, Oriented, CN II-XII Intact, Normal Cognition, No Motor/ Sensory Deficits Psychiatric: Normal Affect, Normal Mood Skin Exam: Warm, Dry, Intact, Normal Color, No Rash Course - Vital Signs Last Recorded V/S: Last Vital Signs Temp 37.2 C 01/12/19 22:59 Pulse 86 01/13/19 00:55 Resp 16 01/13/19 00:55 BP 115/76 01/13/19 00:55 Pulse Ox 99 01/13/19 00:55 - Orders/Labs/Meds Orders: Active Orders 24 hr Category Date Time Status Iopamidol [Isovue-300 (61%)] Med 01/13/19 01:30 Active 100 ml IV . DIRECTED Sodium Chloride 0.9% [Normal Saline] 71 ml Med 01/13/19 01:30 Active IV ASDIRECTED Sodium Chloride 0.9% [Saline Flush] Med 01/12/19 23:36 Active 10 ml FLUSH ASDIRECTED PRN Saline Lock Insert [OM.PC] Routine Oth 01/12/19 23:36 Ordered Medication Orders Sodium Chloride (Normal Saline) 71 mls @ 0 mls/hr IV ASDIRECTED NAVA Last Admin: 01/13/19 01:41 Dose: 2.5 mls/hr Iopamidol (Isovue-300 (61%)) 100 ml IV . DIRECTED NAVA Last Admin: 01/13/19 01:40 Dose: 100 ml Sodium Chloride (Saline Flush) 10 ml FLUSH ASDIRECTED PRN PRN Reason: Keep Vein Open Last Admin: 01/13/19 01:41 Dose: 10 ml Labs: Laboratory Tests 01/12/19 01/12/19 01/13/19 Range/Units 23:47 23:47 01:18 WBC 9.3 (4.5-11.0) K/uL RBC 4.38 (3.30-5.50) M/uL Hgb 12.0 D (12.0-15.0) g/dL Hct 35.8 L (36.0-48.0) % MCV 82 (80-98) fL MCH 27 (27-31) pg MCHC 34 (32-36) % Plt Count 380 (150-400) K/uL Sodium 138 L (140-148) mmol/L Potassium 3.2 L (3.6-5.2) mmol/L Chloride 108 (100-108) mmol/L Carbon Dioxide 18 L (21-32) mmol/L Anion Gap 15.2 H (5.0-14.0) mmol/L BUN 17 D (7-18) mg/dL Creatinine 1.0 (0.6-1.0) mg/dL Est Cr Clr Drug Dosing 63.25 mL/min Estimated GFR (MDRD) 60 (>60) Glucose 97 (74-106) mg/dL Calcium 7.7 L (8.5-10.1) mg/dL C-Reactive Protein 0.16 (0.0-0.3) mg/dL Meds: Medications Generic Name Dose Route Start Last Admin Trade Name Freq PRN Reason Stop Dose Admin Sodium Chloride 71 mls @ 0 mls/hr 01/13/19 01:30 01/13/19 01:41 Normal Saline IV 2.5 mls/hr ASDIRECTED NAVA Administration KVO Iopamidol 100 ml 01/13/19 01:30 01/13/19 01:40 Isovue-300 (61%) IV 100 ml . DIRECTED NAVA Administration Sodium Chloride 10 ml 01/12/19 23:36 01/13/19 01:41 Saline Flush FLUSH 10 ml ASDIRECTED PRN Administration Keep Vein Open Discontinued Medications Generic Name Dose Route Start Last Admin Trade Name Freq PRN Reason Stop Dose Admin Hydromorphone HCl 0.5 mg 01/12/19 23:37 01/12/19 23:57 Dilaudid IVPUSH 01/12/19 23:38 0.5 mg ONETIME ONE Administration Lactated Ringer's 1,000 mls @ 1,000 mls/hr 01/13/19 01:14 01/13/19 01:49 Ringers, Lactated IV 01/13/19 02:13 1,000 mls/hr BOLUS ONE Administration Ondansetron HCl 4 mg 01/12/19 23:37 01/13/19 00:00 Zofran IVPUSH 01/12/19 23:38 4 mg ONETIME ONE Administration Sodium Chloride 10 ml 01/13/19 01:22 01/13/19 01:50 Saline Flush FLUSH 01/13/19 01:23 10 ml ONETIME ONE Administration - Radiology Interpretation Free Text/Narrative:: Flat/upright abdominal X-rays- Findings/Impression: : Multiple abdominal coils. Cholecystectomy clips. Bowel sutures. A nonspecific bowel gas pattern. A dilated gas-filled left abdominal bowel segment, adjacent to an anastomotic suture, and gas-filled pelvic bowel segments. If evolving bowel obstruction is suspected clinically, follow-up with serial KUBs. No suspicious calcifications seen. Stable osseous structures. Dictated by Anatoliy Bowser MD @ 01/13/2019 1:02:[address] abd/pelvis with IV contrast- IMPRESSION: Rectal wall thickening suggestive of nonspecific proctitis. A persistent loculated, peripherally enhancing anterior left abdominal fluid collection which could represent a chronic abscess, decreased in size. Dictated by Anatoliy Bowser MD @ 01/13/2019 2:22:[address] Results Date: 01/13/19 CT Results Time: 02:30 Departure - Departure Time of Disposition: 02:42 Disposition: Home, Self-Care 01 Condition: Fair Clinical Impression: Abdominal pain Qualifiers: Abdominal location: generalized Qualified Code(s): R10.84 - Generalized abdominal pain - Discharge Information *PRESCRIPTION DRUG MONITORING PROGRAM REVIEWED*: No *COPY OF PRESCRIPTION DRUG MONITORING REPORT IN PATIENT CARRILLO: No Referrals: Summer Tijreina PA-C [Primary Care Provider] - Forms: ED Department Discharge Additional Instructions: Take Zofran as needed for nausea control. Take Carbon as needed for pain relief. Clear liquid diet. F/U with Dr. Russ later today or tomorrow for recheck. - My Orders Last 24 Hours: My Active Orders 01/12/19 23:36 Sodium Chloride 0.9% [Saline Flush] 10 ml FLUSH ASDIRECTED PRN Saline Lock Insert [OM.PC] Routine 01/13/19 01:30 Iopamidol [Isovue-300 (61%)] 100 ml IV . DIRECTED Sodium Chloride 0.9% [Normal Saline] 71 ml IV ASDIRECTED - Assessment/Plan Last 24 Hours: My Active Orders 01/12/19 23:36 Sodium Chloride 0.9% [Saline Flush] 10 ml FLUSH ASDIRECTED PRN Saline Lock Insert [OM.PC] Routine 01/13/19 01:30 Iopamidol [Isovue-300 (61%)] 100 ml IV . DIRECTED Sodium Chloride 0.9% [Normal Saline] 71 ml IV ASDIRECTED
--- NOTE | 2019-01-13 01:04 | CRLCR ---
Indication: Left lower quadrant pain Technique: Three views of the abdomen Comparison: 11/13/2018 Findings/Impression: : Multiple abdominal coils. Cholecystectomy clips. Bowel sutures. A nonspecific bowel gas pattern. A dilated gas-filled left abdominal bowel segment, adjacent to an anastomotic suture, and gas-filled pelvic bowel segments. If evolving bowel obstruction is suspected clinically, follow-up with serial KUBs. No suspicious calcifications seen. Stable osseous structures. Dictated by Anatoliy Bowser MD @ 01/13/2019 1:02:23 AM Dictated by: Anatoliy Bowser MD @ 01/13/2019 01:02:27 (Electronically Signed)
[2019-01-13] MEDS ORDERED: Lactated Ringers 1,000 ML IV ONE (01:14)
[2019-01-13] MEDS ORDERED: Sodium Chloride 0.9% 10 ML Syringe FLUSH ONE (01:22)
[2019-01-13] MEDS ORDERED: Sodium Chloride 0.9% 71 ML IV SCH (01:30)
[2019-01-13] MEDS ORDERED: Iopamidol 612 MG/ML 100 ML Bottle IV SCH (01:30)
--- NOTE | 2019-01-13 02:24 | CRLCT ---
INDICATION: Left lower quadrant pain TECHNIQUE: CT abdomen and pelvis acquired with IV contrast. 100 mL of Isovue-300 administered. COMPARISON: 12/09/2018 FINDINGS: Lower chest: Unremarkable. Liver: Enlarged right hepatic lobe measuring 22.3 cm craniocaudally. Spleen: Unremarkable. Pancreas: A sub centimeter low-density focus again seen is distal pancreatic body, which could represent invaginated peripancreatic fat. Gallbladder and bile ducts: Cholecystectomy. Mild biliary dilatation could be related to the postcholecystectomy state. Adrenal glands: Unremarkable. Kidneys: Unremarkable. GI tract: Post gastric bypass changes, as well as small bowel and colonic anastomotic sutures again seen. No high-grade mechanical small bowel obstruction. Liquid and semi liquid stool within the colon suggestive of a diarrheal illness. Mild distal rectal wall thickening. Vascular structures: Atherosclerotic changes, prominent for age. Lymph nodes: No abnormally enlarged lymph nodes. Shotty subcentimeter mesenteric lymph nodes, nonspecific. Miscellaneous: A persistent loculated, peripherally enhancing fluid collection underlying the anterior left abdominal wall, measuring up to 4.4 x 0.9 x 6.0 cm, decreased compared to the prior. Probable scarring in the anterior right abdominal omental fat. No free air. Pelvic Organs: Unremarkable. Bones: L5 spondylolysis. IMPRESSION: Rectal wall thickening suggestive of nonspecific proctitis. A persistent loculated, peripherally enhancing anterior left abdominal fluid collection which could represent a chronic abscess, decreased in size. Dictated by Anatoliy Bowser MD @ 01/13/2019 2:22:58 AM Please note that all CT scans at this facility use dose modulation, iterative reconstruction, and/or weight-based dosing when appropriate to reduce radiation dose to as low as reasonably achievable. Dictated by: Anatoliy Bowser MD @ 01/13/2019 02:23:02 (Electronically Signed)
[2019-01-13] MEDS ORDERED: Potassium Chloride 10 MEQ Cap.ER PO ONE (02:42)
[2019-01-13 02:54] VITALS: BP 118/62; PULSE 76
== END 2019-01-13 02:51 | disposition home or self-care (01) ==
LOC: JP.ED 22:44
DX: R10.84 Generalized abdominal pain (principal); F32.9 Major depressive disorder, single episode, unspecified; K21.9 Gastro-esophageal reflux disease without esophagitis; Z79.899 Other long term (current) drug therapy; Z87.891 Personal history of nicotine dependence
CPT/HCPCS: 36415; 74019; 74177; 80048; 85027; 86140; 96361; 96374; 96375; 99284; J1170; J2405; J7030; J7120; Q9967

== ENCOUNTER → 2019-02-15 | Day surgery (SDC) | payer BC ==
[~2019-02-15] MED LIST changes: +Acetaminophen/oxyCODONE 325-5 MG Tab PO ONE; +Dexamethasone 4 MG/ML SDV ONE; -Gabapentin 300 MG Cap PO ONE; +Glycopyrrolate 0.2 MG/ML 5 ML MDV ONE; +Lactated Ringers 1,000 ML IV SCH; +Neostigmine Methylsulfate 1 MG/ML 5 ML Syringe ONE; +Nozin Nasal Sanitizer NASBOTH ONE; +Ondansetron 4 MG/2 ML SDV ONE; +Propofol 200 MG/20 ML SDV ONE; +Rocuronium 50 MG/5 ML Vial ONE; +Succinylcholine 200 MG/10 ML MDV ONE; +ceFAZolin 1 GM in Premix Bag 1 BAG IV ONE; +ceFAZolin 1 GM in Sodium Chloride 0.9% 50 ML IV ONE; +ceFAZolin 2 GM in Premix Bag 1 BAG IV ONE; +fentaNYL 250 MCG/5 ML SDV ONE
[2019-02-15] MEDS: Bupivacaine 0.5% 50 ML MDV ONE ×2 (08:47→10:40)
[2019-02-15 12:28] VITALS: BP 111/67; PULSE 76
--- NOTE | 2019-02-19 16:51 | OR ---
DATE OF PROCEDURE: 02/15/2019 SURGEON: Chris Elliott MD PREOPERATIVE DIAGNOSIS: Chondromalacia of patella, right knee. POSTOPERATIVE DIAGNOSES: Chondromalacia of patella, right knee; and medial femoral condyle, grade 3. PROCEDURES: Arthroscopy of right knee with chondroplasty, medial femoral condyle and patella. ANESTHESIA: General. INDICATIONS: Geovanni is a 48-year-old with a history of progressive pain in her right knee for the past several months. She has had previous knee scope with some temporary improvement. Now experiencing increasing grinding and giving way. Examination was consistent with chondromalacia of the patellofemoral joint and possible medial femoral condyle. She now presents for arthroscopic evaluation and chondroplasty. Risks, benefits, and potential complications of the procedure were discussed. DESCRIPTION OF PROCEDURE: After adequate anesthesia was obtained, the patient was placed supine with a tourniquet about the right upper thigh. Right leg was prepped and draped in a sterile fashion. Leg was exsanguinated and tourniquet inflated to 300 mmHg pressure. Standard inferior, medial and lateral portals were established. Patellofemoral joint was inspected. This revealed an area of grade 3 chondromalacia in the central dome of the patella with loose articular flaps around the periphery of the lesion. The main trochlear groove was intact. Sweeping into the medial compartment, medial meniscus was intact with evidence of some minor previous meniscectomy. Medial femoral condyle also showed areas of grade 3 change in a slightly larger area of the weightbearing surface as well as a separate area more up near the junction of the femoral condyle and trochlear groove. Shaver was introduced and chondroplasty performed over the medial femoral condyle, removing all loose articular flaps, but preserving as much articular cartilage as possible. She did not have a full-thickness cartilage loss. Intercondylar notch showed intact ACL and PCL. Lateral compartment showed intact meniscus and articular cartilage. Sweeping back into the patellofemoral joint. Chondroplasty was performed on the patella, again, removing all loose articular flaps. This was not down to subchondral bone. All loose fragments were removed. The knee was drained. Scope was withdrawn. Port sites were closed with Monocryl and Steri- Strips, infiltrated with Marcaine and a sterile dressing was applied. The patient tolerated the procedure well. There were no complications. She was taken from the operating room in stable condition. Chris Elliott MD /[id number]
== END ==
LOC: JP.SDS 07:29
PROVIDERS: ATTEND Specialist
DX: M22.41 Chondromalacia patellae, right knee (principal); K21.9 Gastro-esophageal reflux disease without esophagitis; K58.9 Irritable bowel syndrome, unspecified; M19.90 Unspecified osteoarthritis, unspecified site; E53.8 Deficiency of other specified B group vitamins; Z87.891 Personal history of nicotine dependence; Z88.3 Allergy status to other anti-infective agents; Z79.899 Other long term (current) drug therapy; Z79.1 Long term (current) use of non-steroidal anti-inflammatories (NSAID)
CPT/HCPCS: 36415; 80048; 85027; A9270-GY; J0330; J0690; J1100; J2405; J2704; J2710; J3010; J3490; J7120

== ENCOUNTER 2019-05-12 08:08 | Day surgery (SDC) | payer BC ==
[2019-05-12] MEDS ORDERED: Midazolam 1 MG/ML 2 ML SDV ONE (08:18)
[2019-05-12] MEDS ORDERED: fentaNYL 100 MCG/2 ML SDV ONE (08:18)
[2019-05-12] MEDS ORDERED: Propofol 200 MG/20 ML SDV ONE ×2 (08:18→10:35)
[2019-05-12] MEDS ORDERED: Bupivacaine 0.5% 30 ML SDV ONE ×2 (08:19→11:01)
[2019-05-12] MEDS ORDERED: Lactated Ringers 1,000 ML IV SCH (08:45)
[2019-05-12] MEDS ORDERED: ceFAZolin 2 GM in Premix Bag 1 BAG IV ONE (08:45)
[2019-05-12] MEDS ORDERED: Nozin Nasal Sanitizer NASBOTH ONE (08:45)
[2019-05-12] MEDS ORDERED: fentaNYL 250 MCG/5 ML SDV ONE (10:36)
[2019-05-12 13:17] VITALS: BP 98/63; PULSE 86
--- NOTE | 2019-05-20 08:46 | OR ---
DATE OF PROCEDURE: 05/12/2019 SURGEON: Chris Elliott MD PREOPERATIVE DIAGNOSES: 1. Impingement, right shoulder. 2. Partial rotator cuff tear. POSTOPERATIVE DIAGNOSES: 1. Impingement, right shoulder. 2. Moderate rotator cuff tendinopathy. ANESTHESIA: Interscalene block with sedation. INDICATIONS: Geovanni is a 48-year-old female with a history of persistent progressive pain in the right shoulder. She has had previous shoulder arthroscopy and decompression. She did fairly well for a while, but was never quite pain free and has had increasing pain recently. She has failed conservative treatment. Previous MRI showed evidence of tendinopathy and/or partial-thickness tear. Followup MRI shows persistence of the lesion in the rotator cuff. She is, therefore, brought to the operating room for further evaluation of the rotator cuff for probable partial-thickness tear. The risks, benefits, and potential complications of the procedure were discussed. DESCRIPTION OF PROCEDURE: After adequate anesthesia was obtained, the patient was placed in a lateral decubitus position and secured with the beanbag positioner. Right shoulder and arm were then prepped and draped in a sterile fashion. Ten pounds of traction was placed in the shoulder traction unit. Standard posterior portal was established. Glenohumeral joint was inspected. This revealed no evidence of any articular cartilage damage to the humeral head or glenoid. Glenoid labrum was intact. Biceps tendon was intact with no evidence of partial-thickness tear or significant tendinopathy. Subscapularis was intact. Evaluation of the undersurface of the rotator cuff revealed a very minor fraying on the undersurface, which was lightly debrided. This allowed better visualization of the rotator cuff attachment at the footprint. Again, this showed some mild tendinosis, but no evidence of a full-thickness tear. The area of the tendinosis was marked with a PDS suture through a spinal needle. The scope was then withdrawn and placed in the subacromial space. Lateral portal was established and bursa was resected for visualization. Mild amount of hypertrophic bursa and scar tissue was present along the anterolateral edge of the acromion, showing some persistent impingement. Bursal surface of the rotator cuff was thoroughly evaluated and no full-thickness tears were identified. The area in question was also evaluated and probed with no evidence of significant thinning or partial thickness tear. Undersurface of the acromion was then cleared of soft tissues with the ablation wand, and revision of the acromioplasty was performed with a bur, removing an additional 3 to 4 mm anterolaterally. This appeared to thoroughly decompress the cuff. All loose fragments were removed. Scope was withdrawn. It was then placed in the lateral portal and the level of the decompression was evaluated and appeared to be adequate. Rotator cuff was further evaluated from this position, moving the arm through an internal and external rotation and abduction with no evidence of any other pathology. The scope was then withdrawn. Port sites were then closed with 3-0 Monocryl and Steri-Strips were applied. Light dressing was then placed. The patient tolerated the procedure well. No complications. Taken from the operating room in stable condition. Chris Elliott MD /[id number]
== END 2019-05-12 13:23 | disposition home or self-care (01) ==
LOC: JP.SDS 08:08
PROVIDERS: ATTEND Specialist
DX: M25.811 Other specified joint disorders, right shoulder (principal); M67.911 Unspecified disorder of synovium and tendon, right shoulder
CPT/HCPCS: 29822; 36415; 80053; 85027; A9270; C1713; J0690; J2250; J2704; J3010; J3490; J7120

== ENCOUNTER 2019-05-24 21:13 | Emergency (ER) | payer BC ==
[2019-05-24 21:29] VITALS: BP 132/84; PULSE 89
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
--- NOTE | 2019-05-25 08:52 | CR ---
CHEST: 2 view CLINICAL HISTORY:Left chest pain COMPARISON:Portable 11/17/2018 FINDINGS: The heart size, pulmonary vascularity and hilar structures are normal. No infiltrate effusion or pneumothorax is seen. IMPRESSION: No acute cardiopulmonary process.
== END 2019-05-24 22:47 | disposition home or self-care (01) ==
LOC: JP.ED 21:13
DX: S29.011A Strain of muscle and tendon of front wall of thorax, initial encounter (principal); K21.9 Gastro-esophageal reflux disease without esophagitis; F32.9 Major depressive disorder, single episode, unspecified; Z79.899 Other long term (current) drug therapy; Z98.84 Bariatric surgery status; Z90.49 Acquired absence of other specified parts of digestive tract; Z88.8 Allergy status to other drugs, medicaments and biological substances; X50.9XXA Other and unspecified overexertion or strenuous movements or postures, initial encounter
CPT/HCPCS: 71046; 71046-26; 99284-25

== ENCOUNTER 2019-12-13 15:13 | Emergency (ER) | payer BC ==
[2019-12-13 15:41] VITALS: BP 105/70; PULSE 105
--- NOTE | 2019-12-13 16:07 | EDM.PDOC ---
ED HPI GENERAL MEDICAL PROBLEM - General Chief Complaint: Skin Complaint Stated Complaint: INCISION POPPED OPEN Time Seen by Provider: 12/13/19 16:02 Source of Information: Reports: Patient History Limitations: Reports: Other (no old records) - History of Present Illness INITIAL COMMENTS - FREE TEXT/NARRATIVE: 49 yo female recently had a hysterectomy in [place]. She is scheduled to have her kitty removed in the clinic this coming Friday. Today she went to lift up her pannus and a gush of fluid ensued. She has not had any more pain or a fever. She came right to the ER when this occurred. 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) - Related Data Allergies Allergy/AdvReac Type Severity Reaction Status Date / Time tioconazole [From Monistat 1] Allergy Rash Verified 07/13/19 13:33 Home Meds: Home Meds Docusate Sodium [Colace] 250 mg PO BID 04/25/13 [History] Vitamin B Complex [B Complex] 1 each PO DAILY 04/25/13 [History] Cyanocobalamin (Vitamin B-12) [B-12] 2,500 mcg SL DAILY 01/25/14 [History] bisacodyL [Dulcolax] 3 tab PO BEDTIME 01/25/14 [History] Montelukast Sodium 10 mg PO BEDTIME 07/22/17 [History] Omeprazole 40 mg PO DAILY 12/20/17 [History] Sennosides/Docusate Sodium [Senokot-S Tablet] 4 each PO BID 12/20/17 [History] Celecoxib [CeleBREX] 100 mg PO BID 08/06/18 [History] DULoxetine [Cymbalta] 60 mg PO DAILY 08/06/18 [History] Potassium Chloride [Klor-Con M20] 40 meq PO DAILY 11/08/18 [History] Cyclobenzaprine [Flexeril] 10 mg PO Q6H PRN #30 tablet 11/19/18 [Rx] Pregabalin 75 mg PO BID 12/15/18 [History] Calcium Citrate/Vitamin D3 [Calcium Citrate - Vit D Caplet] 1 each PO DAILY 05/10/19 [History] Cholecalciferol (Vitamin D3) [Vitamin D] 5,000 unit PO DAILY 05/10/19 [History] Multivitamin [Multi-Vitamin Daily] 1 each PO DAILY 05/10/19 [History] Norethindrone-Ethin. Estradiol [Pirmella 7-7-7-28 Tablet] 1 each PO DAILY 05/12/19 [History] methylPREDNISolone [Medrol Dose Pack] 84 mg PO ASDIRECTED #1 dospk 06/29/19 [Rx] oxyCODONE HCl/Acetaminophen [Percocet 5-325 mg Tablet] 1 each PO BID PRN 7 Days #14 tablet 07/01/19 [Rx] Lubiprostone [Amitiza] 24 mcg PO BIDMEALS 07/13/19 [History] busPIRone [Buspar] 5 mg PO BID 07/13/19 [History] oxyCODONE HCl/Acetaminophen [Percocet 5-325 mg Tablet] 1 each PO BID PRN #14 tablet 07/14/19 [Rx] oxyCODONE HCl/Acetaminophen [Percocet 5-325 mg Tablet] 1 each PO BID PRN 7 Days #14 tablet 07/21/19 [Rx] Past Medical History HEENT History: Reports: Allergic Rhinitis, Impaired Vision, Otitis Media Cardiovascular History: Reports: None Respiratory History: Reports: None Gastrointestinal History: Reports: Bowel Obstruction, Cholelithiasis, Chronic Constipation, GERD, Irritable Bowel Syndrome Genitourinary History: Reports: 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 bilateral shoulder and knee pain Neurological History: Reports: Other (See Below) Other Neuro History: restless leg Psychiatric History: Reports: Depression Endocrine/Metabolic History: Reports: Vitamin D Deficiency Hematologic History: Reports: Anemia, B12 Deficiency, Folic Acid, Iron Defici ency Immunologic History: Reports: None Oncologic (Cancer) History: Reports: None Dermatologic History: Reports: None - Infectious Disease History Infectious Disease History: Reports: Chicken Pox - Past Surgical History Head Surgeries/Procedures: Reports: None Cardiovascular Surgical History: Reports: None Respiratory Surgical History: Reports: None GI Surgical History: Reports: Bariatric Procedure, Cholecystectomy, Colon, Colonoscopy, EGD, Hernia, Abdominal, Small Bowel Other GI Surgeries/Procedures: several hernias and bowel obstructions Female Surgical History: Reports: Section Endocrine Surgical History: Reports: None Neurological Surgical History: Reports: None Dermatological Surgical History: Reports: None Social & Family History - Family History Family Medical History: Noncontributory - Caffeine Use Caffeine Use: Reports: Coffee, Soda Caffeine Use Comment: daily iced tea ED ROS GENERAL - Review of Systems Review Of Systems: See Below Constitutional: Reports: No Symptoms GI/Abdominal: Reports: No Symptoms : Reports: No Symptoms Musculoskeletal: Reports: No Symptoms Skin: Reports: Wound (surgical low abdomen wound with recent gush of fluid) Neurological: Reports: No Symptoms ED EXAM, SKIN/RASH Exam: See Below Exam Limited By: No Limitations General Appearance: Alert, WD/WN, No Apparent Distress Extremities: Normal Inspection Neurological: Alert, Oriented, CN II-XII Intact, Normal Cognition, No Motor/Sensory Deficits Psychiatric: Normal Affect, Normal Mood Skin: Warm, Dry, Normal Color, No Rash, Wound/Incision (Vertical surgical wound from her umbilicus to her pubic ramus closed with kitty. The wound is not infected. One staple does not bridge both sides of her wound and thus there is a skin opening that had some serosanguinous fluid flow out through this opening. There is minimal continued drainage now in the ER. ) Location, Skin: Abdomen Characteristics: Linear Associated features: No: Warmth, Lymphangitis, Inflammation Course - Vital Signs Last Recorded V/S: Last Vital Signs Temp 36.2 C 12/13/19 15:40 Pulse 105 H 12/13/19 15:40 Resp 16 12/13/19 15:40 BP 105/70 12/13/19 15:40 Pulse Ox 97 12/13/19 15:40 Departure - Departure Time of Disposition: 16:15 Disposition: Home, Self-Care 01 Condition: Good Clinical Impression: Encounter for post surgical wound check - Discharge Information *PRESCRIPTION DRUG MONITORING PROGRAM REVIEWED*: No *COPY OF PRESCRIPTION DRUG MONITORING REPORT IN PATIENT CARRILLO: No Referrals: Mary Lou Fritz PA-C [Primary Care Provider] - Forms: ED Department Discharge Additional Instructions: Continue present cares. Return to the clinic on Friday as scheduled for staple removal. Return for fever. Sepsis Event Note (ED) - Focused Exam Vital Signs: Vital Signs Temp Pulse Resp BP Pulse Ox 12/13/19 15:40 36.2 C 105 H 16 105/70 97
== END 2019-12-13 16:27 | disposition home or self-care (01) ==
LOC: JP.ED 15:13
DX: Z48.816 Encounter for surgical aftercare following surgery on the genitourinary system (principal); K21.9 Gastro-esophageal reflux disease without esophagitis; F32.9 Major depressive disorder, single episode, unspecified; Z88.1 Allergy status to other antibiotic agents; Z79.899 Other long term (current) drug therapy
CPT/HCPCS: 99282

== ENCOUNTER 2019-12-19 17:35 | Emergency (ER) | payer BC ==
[2019-12-19 17:45] VITALS: BP 128/77; PULSE 117
[2019-12-19] MEDS ORDERED: Acetaminophen/oxyCODONE 325-5 MG Tab PO PRN (18:06)
--- NOTE | 2019-12-19 18:08 | EDM.PDOC ---
ED HPI GENERAL MEDICAL PROBLEM - General Chief Complaint: Wound Recheck Stated Complaint: INCISION OPENED POST SURGERY Time Seen by Provider: 12/19/19 17:56 Source of Information: Reports: Patient History Limitations: Reports: No Limitations - History of Present Illness INITIAL COMMENTS - FREE TEXT/NARRATIVE: 49-year-old female who had an abdominal hysterectomy in [place] on Friday presents to the emergency department with a wound opening. She reports drainage of serum and dark blood. She denies chills or fever. Her pain is mildmoderate in intensity. She had a similar problem in the past that became infected and she is concerned. She has no history of diabetes or other immunocompromising conditions. - Related Data Allergies Allergy/AdvReac Type Severity Reaction Status Date / Time tioconazole [From Monistat 1] Allergy Rash Verified 12/19/19 17:48 Home Meds: Home Meds Docusate Sodium [Colace] 250 mg PO BID 04/25/13 [History] Vitamin B Complex [B Complex] 1 each PO DAILY 04/25/13 [History] Cyanocobalamin (Vitamin B-12) [B-12] 2,500 mcg SL DAILY 01/25/14 [History] bisacodyL [Dulcolax] 3 tab PO BEDTIME 01/25/14 [History] Montelukast Sodium 10 mg PO BEDTIME 07/22/17 [History] Omeprazole 40 mg PO DAILY 12/20/17 [History] Sennosides/Docusate Sodium [Senokot-S Tablet] 4 each PO BID 12/20/17 [History] DULoxetine [Cymbalta] 60 mg PO DAILY 08/06/18 [History] Potassium Chloride [Klor-Con M20] 40 meq PO DAILY 11/08/18 [History] Cyclobenzaprine [Flexeril] 10 mg PO Q6H PRN #30 tablet 11/19/18 [Rx] Pregabalin 75 mg PO BID 12/15/18 [History] Cholecalciferol (Vitamin D3) [Vitamin D] 5,000 unit PO DAILY 05/10/19 [History] Multivitamin [Multi-Vitamin Daily] 1 each PO DAILY 05/10/19 [History] Lubiprostone [Amitiza] 24 mcg PO BIDMEALS 07/13/19 [History] ARIPiprazole [Abilify] 1 tab PO DAILY 12/19/19 [History] Lubiprostone [Amitiza] 1 tab PO DAILY 12/19/19 [History] Sulfamethoxazole/Trimethoprim [Bactrim Ds Tablet] 1 tab PO BID 12/19/19 [History] Past Medical History HEENT History: Reports: Allergic Rhinitis, Impaired Vision, Otitis Media Cardiovascular History: Reports: None Respiratory History: Reports: None Gastrointestinal History: Reports: Bowel Obstruction, Cholelithiasis, Chronic Constipation, GERD, Irritable Bowel Syndrome Genitourinary History: Reports: None [employer]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 bilateral shoulder and knee pain Neurological History: Reports: Other (See Below) Other Neuro History: restless leg Psychiatric History: Reports: Depression Endocrine/Metabolic History: Reports: Vitamin D Deficiency Hematologic History: Reports: Anemia, B12 Deficiency, Folic Acid, Iron Deficiency Immunologic History: Reports: None Oncologic (Cancer) History: Reports: None Dermatologic History: Reports: None - Infectious Disease History Infectious Disease History: Reports: Chicken Pox - Past Surgical History Head Surgeries/Procedures: Reports: None Cardiovascular Surgical History: Reports: None Respiratory Surgical History: Reports: None GI Surgical History: Reports: Bariatric Procedure, Cholecystectomy, Colon, Colonoscopy, EGD, Hernia, Abdominal, Small Bowel Other GI Surgeries/Procedures: several hernias and bowel obstructions Female Surgical History: Reports: Section Endocrine Surgical History: Reports: None Neurological Surgical History: Reports: None Dermatological Surgical History: Reports: None Social & Family History - Family History Family Medical History: Noncontributory - Tobacco Use Smoking Status *Q: Never Smoker - Caffeine Use Caffeine Use: Reports: Coffee, Soda Caffeine Use Comment: daily iced tea ED ROS GENERAL - Review of Systems Review Of Systems: See Below Constitutional: Reports: No Symptoms. Denies: Fever GI/Abdominal: Denies: Nausea, Vomiting Skin: Reports: Other (Wound opening) ED EXAM, SKIN/RASH Exam: See Below Exam Limited By: No Limitations General Appearance: Alert, WD/WN, No Apparent Distress Skin: Other (Is a 4 cm wound opening over the lower abdomen overlying a abdominal hysterectomy incision. There is no pussy drainage or redness around the wound. There is serum within the wound.) Course - Vital Signs Text/Narrative:: Patient has a wound opening on incision over a abdominal hysterectomy that was done approximately a week ago. There is no signs of secondary infection. It was probably a seroma that drained. The patient's wound was packed with saline gauze. She has an appointment with a physician in the clinic tomorrow. She has a follow-up with her surgeon next week in the clinic. The patient will return here as needed. She was given a dose of Percocet in the ED when her wound was packed. Last Recorded V/S: Last Vital Signs Temp 36.4 C 12/19/19 17:44 Pulse 117 H 12/19/19 17:44 Resp 16 12/19/19 17:44 BP 128/77 12/19/19 17:44 Pulse Ox 97 12/19/19 17:44 Departure - Departure Time of Disposition: 18:04 Disposition: Home, Self-Care 01 Condition: Good Clinical Impression: Wound, open, abdominal wall, anterior - Discharge Information *PRESCRIPTION DRUG MONITORING PROGRAM REVIEWED*: No *COPY OF PRESCRIPTION DRUG MONITORING REPORT IN PATIENT CARRILLO: No Instructions: How to Change Your Wound Dressing, [id number] Referrals: PCP,None [Primary Care Provider] - Additional Instructions: Follow-up with your doctor tomorrow. Return to the ER as needed. Sepsis Event Note (ED) - Focused Exam Vital Signs: Vital Signs Temp Pulse Resp BP Pulse Ox 12/19/19 17:44 36.4 C 117 H 16 128/77 97
== END 2019-12-19 18:34 | disposition home or self-care (01) ==
LOC: JP.ED 17:35
DX: N99.89 Other postprocedural complications and disorders of genitourinary system (principal); F32.9 Major depressive disorder, single episode, unspecified; K21.9 Gastro-esophageal reflux disease without esophagitis; Z88.8 Allergy status to other drugs, medicaments and biological substances; Z90.49 Acquired absence of other specified parts of digestive tract; Z79.899 Other long term (current) drug therapy
CPT/HCPCS: 99283; A9270

== ENCOUNTER 2021-04-16 08:09 | Day surgery (SDC) | payer OTHER ==
[~2021-04-16 08:09] MED LIST changes: -Acetaminophen/oxyCODONE 325-5 MG Tab PO ONE; +Bupivacaine 0.5% 30 ML SDV ONE; -Dexamethasone 4 MG/ML SDV ONE; -Glycopyrrolate 0.2 MG/ML 5 ML MDV ONE; -Lactated Ringers 1,000 ML IV SCH; -Neostigmine Methylsulfate 1 MG/ML 5 ML Syringe ONE; -Nozin Nasal Sanitizer NASBOTH ONE; -Ondansetron 4 MG/2 ML SDV ONE; +Povidone-Iodine 10% Soln 118.25 ML Bottle ONE; -Propofol 200 MG/20 ML SDV ONE; -Rocuronium 50 MG/5 ML Vial ONE; -Succinylcholine 200 MG/10 ML MDV ONE; -ceFAZolin 1 GM in Premix Bag 1 BAG IV ONE; -ceFAZolin 1 GM in Sodium Chloride 0.9% 50 ML IV ONE; -ceFAZolin 2 GM in Premix Bag 1 BAG IV ONE; -fentaNYL 250 MCG/5 ML SDV ONE
[2021-04-16] MEDS ORDERED: fentaNYL 100 MCG/2 ML SDV ONE ×2 (08:40→10:56)
[2021-04-16] MEDS ORDERED: Propofol 200 MG/20 ML SDV ONE ×3 (08:40→11:24)
[2021-04-16] MEDS ORDERED: Midazolam 1 MG/ML 2 ML SDV ONE ×2 (08:40→10:39)
[2021-04-16] MEDS ORDERED: Bupivacaine 0.5% 30 ML SDV ONE (08:41)
[2021-04-16] MEDS ORDERED: Lactated Ringers 1,000 ML IV SCH (08:45)
[2021-04-16] MEDS ORDERED: Nozin Nasal Sanitizer NASBOTH ONE (08:45)
[2021-04-16] MEDS ORDERED: ceFAZolin 2 GM in Premix Bag 1 BAG IV ONE (09:15)
[2021-04-16] MEDS ORDERED: Acetaminophen/oxyCODONE 325-5 MG Tab PO PRN (12:27)
[2021-04-16 13:45] VITALS: BP 133/73; PULSE 85
== END 2021-04-16 13:40 | disposition home or self-care (01) ==
LOC: JP.SDS 08:09
PROVIDERS: ATTEND Specialist
DX: M75.111 Incomplete rotator cuff tear or rupture of right shoulder, not specified as traumatic (principal); M77.8 Other enthesopathies, not elsewhere classified; J44.9 Chronic obstructive pulmonary disease, unspecified; F32.A Depression, unspecified; Z87.891 Personal history of nicotine dependence
CPT/HCPCS: 29827; 36415; 80053; 85025; A9270; C1713; J0690; J2250; J2704; J3010; J3490; J7120

== ENCOUNTER 2022-01-25 09:23 | Day surgery (SDC) | payer OTHER ==
[2022-01-25] MEDS ORDERED: Lactated Ringers 1,000 ML IV SCH (09:30)
[2022-01-25] MEDS ORDERED: Propofol 200 MG/20 ML SDV ONE (10:26)
[2022-01-25] MEDS ORDERED: Midazolam 1 MG/ML 2 ML SDV ONE (10:26)
[2022-01-25] MEDS ORDERED: fentaNYL 100 MCG/2 ML SDV ONE (10:26)
[2022-01-25 12:12] VITALS: BP 123/70; PULSE 71
== END 2022-01-25 12:37 | disposition home or self-care (01) ==
LOC: JP.SDS 09:23
PROVIDERS: ATTEND Student in an Organized Health Care Education/Training Program
DX: R10.13 Epigastric pain (principal); Z53.09 Procedure and treatment not carried out because of other contraindication; E66.9 Obesity, unspecified; B96.81 Helicobacter pylori [H. pylori] as the cause of diseases classified elsewhere; F32.A Depression, unspecified; Z88.1 Allergy status to other antibiotic agents; Z79.899 Other long term (current) drug therapy
CPT/HCPCS: 43239; 87081; J2250; J2704; J3010

== ENCOUNTER 2022-02-08 09:57 | Inpatient (IN) | payer OTHER ==
[2022-02-08] MEDS ORDERED: Ondansetron 4 MG/2 ML SDV IVPUSH PRN (13:52)
[2022-02-08] MEDS ORDERED: Naloxone 0.4 MG/ML SDV IV PRN (14:00)
[2022-02-08] MEDS: Lactated Ringers 1,000 ML IV SCH (15:44)
[2022-02-09] MEDS ORDERED: HYDROmorphone 0.5 MG/0.5 ML Syringe IVPUSH PRN (00:40)
[2022-02-09] MEDS: Lactated Ringers 1,000 ML IV SCH (02:11)
[2022-02-09] MEDS ORDERED: Acetaminophen 500 MG Tab PO ONE (06:00)
[2022-02-09] MEDS ORDERED: Scopolamine 1.5 MG Transdermal Patch TOP SCH (06:00)
[2022-02-09] MEDS ORDERED: Meropenem 500 MG SDV ONE (06:09)
[2022-02-09] MEDS ORDERED: Bupivacaine 0.5% 50 ML MDV ONE (06:09)
[2022-02-09] MEDS ORDERED: Lidocaine 1% with EPINEPHrine 1:100,000 50 ML MDV ONE (06:09)
[2022-02-09] MEDS ORDERED: Rocuronium 50 MG/5 ML Vial ONE (07:03)
[2022-02-09] MEDS ORDERED: Ondansetron 4 MG/2 ML SDV ONE (07:03)
[2022-02-09] MEDS ORDERED: Dexamethasone 4 MG/ML SDV ONE (07:03)
[2022-02-09] MEDS ORDERED: Propofol 200 MG/20 ML SDV ONE (07:03)
[2022-02-09] MEDS ORDERED: Neostigmine Methylsulfate 1 MG/ML 5 ML Syringe ONE (07:03)
[2022-02-09] MEDS ORDERED: Glycopyrrolate 0.2 MG/ML 5 ML MDV ONE (07:03)
[2022-02-09] MEDS ORDERED: Succinylcholine 200 MG/10 ML MDV ONE (07:03)
[2022-02-09] MEDS ORDERED: Ketamine 17 MG in Sodium Chloride 0.9% 19.83 ML IV SCH (08:00)
[2022-02-09] MEDS ORDERED: cefOXitin 2 GM in Sodium Chloride 0.9% 50 ML IV ONE (08:00)
[2022-02-09] MEDS ORDERED: Ketamine 500 MG/5 ML MDV IV SCH (08:00)
[2022-02-09] MEDS ORDERED: Lactated Ringers 1,000 ML ONE (09:23)
[2022-02-09] MEDS ORDERED: Naloxone 0.4 MG/ML SDV IVPUSH PRN (09:37)
[2022-02-09] MEDS ORDERED: Ondansetron 4 MG/2 ML SDV IVPUSH PRN (09:37)
[2022-02-09] MEDS ORDERED: HYDROmorphone/Normal Saline 6 MG/30 ML PCA Vial IV PRN (09:37)
[2022-02-09] MEDS ORDERED: diphenhydrAMINE 25 MG Cap PO PRN (09:37)
[2022-02-09] MEDS ORDERED: diphenhydrAMINE 50 MG/ML SDV IVPUSH PRN ×2 (09:37→13:00)
[2022-02-09] MEDS ORDERED: fentaNYL 100 MCG/2 ML SDV ONE (10:28)
[2022-02-09] MEDS ORDERED: Linezolid 600 MG/300 ML Premix Bag IRR ONE (10:30)
[2022-02-09] MEDS ORDERED: Albuterol/Ipratropium 3.0-0.5 MG/3 ML Neb Soln INH PRN (12:18)
[2022-02-09] MEDS ORDERED: Pantoprazole 40 MG Vial IVPUSH SCH (13:00)
[2022-02-09] MEDS ORDERED: Metoclopramide 10 MG/2 ML SDV IVPUSH PRN (13:00)
[2022-02-09] MEDS ORDERED: Labetalol 20 MG/4 ML Syringe IVPUSH PRN (13:00)
[2022-02-09] MEDS ORDERED: hydrOXYzine HCL 100 MG/2 ML SDV IM PRN (13:00)
[2022-02-09] MEDS: DULoxetine 30 MG Cap PO SCH (13:23)
[2022-02-09] MEDS: ARIPiprazole 10 MG Tab PO SCH (13:23)
[2022-02-09] MEDS: Acetaminophen 500 MG Tab PO SCH ×2 (13:24→21:00)
[2022-02-09] MEDS: cefOXitin 2 GM in Sodium Chloride 0.9% 50 ML IV SCH ×2 (14:39→20:58)
[2022-02-09] MEDS: MVI, Adult with Vitamin K 10 ML, Thiamine 200 MG, Zinc/Copper/Manganese/Selenium 1 ML i... IV SCH ×4 (16:09)
[2022-02-09] MEDS: Heparin Sodium 5,000 Units/ML Vial SUBCUT SCH (18:02)
[2022-02-09] MEDS: Bisacodyl 5 MG Tab PO SCH (20:59)
[2022-02-09] MEDS: Docusate Sodium 100 MG Cap PO SCH (20:59)
[2022-02-09] MEDS: Lubiprostone 24 MCG Cap PO SCH (21:00)
[2022-02-09] MEDS: HYDROmorphone/Normal Saline 6 MG/30 ML PCA Vial IV PRN (21:22)
[2022-02-09] MEDS: Dextrose 5%-Lactated Ringers 1,000 ML IV SCH (22:41)
[2022-02-10] MEDS: cefOXitin 2 GM in Sodium Chloride 0.9% 50 ML IV SCH ×4 (02:46→19:54)
[2022-02-10] MEDS: Dextrose 5%-Lactated Ringers 1,000 ML IV SCH ×2 (04:47→12:45)
[2022-02-10] MEDS ORDERED: Iopamidol 612 MG/ML 50 ML SDV IV PRN (05:37)
[2022-02-10] MEDS: Heparin Sodium 5,000 Units/ML Vial SUBCUT SCH ×2 (06:02→18:16)
[2022-02-10] MEDS: Acetaminophen 500 MG Tab PO SCH ×3 (06:03→22:31)
[2022-02-10] MEDS: Celecoxib 200 MG Cap PO SCH ×2 (09:00→22:33)
[2022-02-10] MEDS: Bisacodyl 5 MG Tab PO SCH ×2 (09:00→22:33)
[2022-02-10] MEDS: Furosemide 20 MG Tab PO SCH (09:00)
[2022-02-10] MEDS: DULoxetine 30 MG Cap PO SCH (09:00)
[2022-02-10] MEDS: Lubiprostone 24 MCG Cap PO SCH ×2 (09:01→22:32)
[2022-02-10] MEDS: Docusate Sodium 100 MG Cap PO SCH ×2 (09:01→22:33)
[2022-02-10] MEDS: ARIPiprazole 10 MG Tab PO SCH (09:01)
[2022-02-10] MEDS: SCOPOLAMINE PATCH CHECK TOP SCH (09:02)
[2022-02-10] MEDS: Sennosides 8.6 MG Tab PO SCH ×2 (09:04→22:33)
[2022-02-10] MEDS: Acetaminophen 500 MG Tab PO PRN ×2 (12:00→19:54)
[2022-02-10] MEDS: Pantoprazole 40 MG Tab.CR PO SCH (12:45)
[2022-02-10] MEDS: MVI, Adult with Vitamin K 10 ML, Thiamine 200 MG, Zinc/Copper/Manganese/Selenium 1 ML i... IV SCH ×4 (15:52)
[2022-02-10] MEDS: HYDROmorphone/Normal Saline 6 MG/30 ML PCA Vial IV PRN ×2 (16:23→21:23)
[2022-02-10] MEDS: Cyclobenzaprine 10 MG Tab PO PRN (22:31)
[2022-02-11] MEDS: Dextrose 5%-Lactated Ringers 1,000 ML IV SCH (01:57)
[2022-02-11] MEDS: cefOXitin 2 GM in Sodium Chloride 0.9% 50 ML IV SCH ×2 (01:57→07:58)
[2022-02-11 04:41] LABS: ESTIMATED GFR 78 mL/min (>60)
[2022-02-11] MEDS: Acetaminophen 500 MG Tab PO SCH ×3 (05:56→21:42)
[2022-02-11] MEDS: Heparin Sodium 5,000 Units/ML Vial SUBCUT SCH ×2 (05:58→17:47)
[2022-02-11] MEDS ORDERED: hydrOXYzine HCl 10 MG Tab PO PRN (07:45)
[2022-02-11] MEDS ORDERED: Ondansetron 4 MG Tab.DIS PO PRN (07:47)
[2022-02-11] MEDS: Pantoprazole 40 MG Tab.CR PO SCH (07:58)
[2022-02-11] MEDS: DULoxetine 30 MG Cap PO SCH (08:00)
[2022-02-11] MEDS: Celecoxib 200 MG Cap PO SCH ×2 (08:00→21:43)
[2022-02-11] MEDS: Lubiprostone 24 MCG Cap PO SCH ×2 (08:01→21:43)
[2022-02-11] MEDS: Docusate Sodium 100 MG Cap PO SCH ×2 (08:01→21:43)
[2022-02-11] MEDS: Bisacodyl 5 MG Tab PO SCH ×2 (08:01→21:43)
[2022-02-11] MEDS: Furosemide 20 MG Tab PO SCH (08:01)
[2022-02-11] MEDS: Sennosides 8.6 MG Tab PO SCH ×2 (08:02→21:43)
[2022-02-11] MEDS: ARIPiprazole 10 MG Tab PO SCH (08:02)
[2022-02-11] MEDS: SCOPOLAMINE PATCH CHECK TOP SCH (08:03)
[2022-02-11] MEDS: oxyCODONE 5 MG Tab PO PRN ×3 (08:14→20:20)
[2022-02-11] MEDS ORDERED: Cyanocobalamin (Vitamin B12) 1,000 MCG/ML SDV IM ONE (09:00)
[2022-02-11] MEDS: Cyclobenzaprine 10 MG Tab PO PRN (13:36)
[2022-02-12] MEDS: oxyCODONE 5 MG Tab PO PRN (03:47)
[2022-02-12] MEDS: Acetaminophen 500 MG Tab PO SCH (05:15)
[2022-02-12] MEDS: Heparin Sodium 5,000 Units/ML Vial SUBCUT SCH (05:16)
[2022-02-12 07:18] VITALS: BP 106/70; PULSE 90
[2022-02-12] MEDS: Celecoxib 200 MG Cap PO SCH (08:10)
[2022-02-12] MEDS: Docusate Sodium 100 MG Cap PO SCH (08:10)
[2022-02-12] MEDS: Pantoprazole 40 MG Tab.CR PO SCH (08:10)
[2022-02-12] MEDS: Lubiprostone 24 MCG Cap PO SCH (08:10)
[2022-02-12] MEDS: Bisacodyl 5 MG Tab PO SCH (08:10)
[2022-02-12] MEDS: ARIPiprazole 10 MG Tab PO SCH (08:11)
[2022-02-12] MEDS: Furosemide 20 MG Tab PO SCH (08:11)
[2022-02-12] MEDS: DULoxetine 30 MG Cap PO SCH (08:11)
[2022-02-12] MEDS: Sennosides 8.6 MG Tab PO SCH (08:12)
== END 2022-02-12 08:50 | disposition home or self-care (01) | DRG 330 ==
LOC: JP.MS 13:03
PROVIDERS: ADMIT Surgery; ATTEND Surgery
PROC: 0DB80ZZ Excision of Small Intestine, Open Approach (ICD-10-PCS; principal; 2022-02-08)
PROC: 0WQF0ZZ Repair Abdominal Wall, Open Approach (ICD-10-PCS; 2022-02-08)
PROC: 0DBW0ZZ Excision of Peritoneum, Open Approach (ICD-10-PCS; 2022-02-08)
PROC: 3E0M05Z Introduction of Adhesion Barrier into Peritoneal Cavity, Open Approach (ICD-10-PCS; 2022-02-08)
DX: K95.89 Other complications of other bariatric procedure (principal); K43.0 Incisional hernia with obstruction, without gangrene; K56.50 Intestinal adhesions [bands], unspecified as to partial versus complete obstruction; D64.9 Anemia, unspecified; F32.A Depression, unspecified; E78.5 Hyperlipidemia, unspecified; Z20.822 Contact with and (suspected) exposure to COVID-19; Z79.899 Other long term (current) drug therapy; Z87.891 Personal history of nicotine dependence
CPT/HCPCS: 36415; 74240; 74240-26; 80053; 83735; 84100; 85025; 88302; 88305; 88307; 88313; 88341; 88342; A9270-GY; C9113; J0171; J0330; J0694; J1100; J1170; J1644; J2020; J2185; J2405; J2704; J2710; J2795; J3010; J3411; J3420; J3490; J7120; J7121; Q9967; U0002

== ENCOUNTER 2022-10-15 07:37 | Inpatient (IN) | payer OTHER ==
[~2022-10-15 07:37] MED LIST changes: -Bupivacaine 0.5% 30 ML SDV ONE; +Bupivacaine 0.5% 50 ML MDV ONE; +Dexamethasone 4 MG/ML SDV ONE; +Glycopyrrolate 0.2 MG/ML 5 ML MDV ONE; +Lidocaine 1% with EPINEPHrine 1:100,000 50 ML MDV ONE; +Meropenem 500 MG SDV ONE; +Neostigmine Methylsulfate 1 MG/ML 5 ML Syringe ONE; +Ondansetron 4 MG/2 ML SDV ONE; -Povidone-Iodine 10% Soln 118.25 ML Bottle ONE; +Propofol 200 MG/20 ML SDV ONE; +Rocuronium 50 MG/5 ML Vial ONE; +Succinylcholine 200 MG/10 ML MDV ONE; +fentaNYL 250 MCG/5 ML SDV ONE
[2022-10-15] MEDS ORDERED: Scopolamine 1.5 MG Transdermal Patch TOP ONE (08:00)
[2022-10-15] MEDS ORDERED: Naloxone 0.4 MG/ML SDV IVPUSH PRN (08:05)
[2022-10-15] MEDS ORDERED: diphenhydrAMINE 50 MG/ML SDV IVPUSH PRN (08:05)
[2022-10-15] MEDS ORDERED: diphenhydrAMINE 25 MG Cap PO PRN (08:05)
[2022-10-15] MEDS ORDERED: Ondansetron 4 MG/2 ML SDV IVPUSH PRN ×2 (08:05→13:30)
[2022-10-15] MEDS ORDERED: Dextrose 5%-Lactated Ringers 1,000 ML IV SCH (08:15)
[2022-10-15 08:19] LABS: HEMOGLOBIN A1C 5.8 % (4.5-6.2)
[2022-10-15] MEDS ORDERED: Naloxone 0.4 MG/ML SDV IV PRN (09:00)
[2022-10-15] MEDS ORDERED: cefOXitin 2 GM in Sodium Chloride 0.9% 50 ML IV ONE (09:15)
[2022-10-15] MEDS ORDERED: Ketamine 500 MG/5 ML MDV IV SCH (09:30)
[2022-10-15] MEDS ORDERED: Ketamine 17 MG in Sodium Chloride 0.9% 19.83 ML IV SCH (09:30)
[2022-10-15] MEDS: HYDROmorphone/Normal Saline 6 MG/30 ML PCA Vial IV PRN (09:47)
[2022-10-15] MEDS ORDERED: fentaNYL 250 MCG/5 ML SDV ONE ×2 (09:51→10:33)
[2022-10-15] MEDS ORDERED: Linezolid 600 MG/300 ML Premix Bag IRR ONE (10:37)
[2022-10-15] MEDS ORDERED: Lactated Ringers 1,000 ML ONE (10:44)
[2022-10-15] MEDS ORDERED: Rocuronium 50 MG/5 ML Vial ONE (10:51)
[2022-10-15] MEDS ORDERED: Labetalol 20 MG/4 ML Syringe ONE (11:47)
[2022-10-15] MEDS: Dextrose 5%-Lactated Ringers 1,000 ML IV SCH (13:24)
[2022-10-15] MEDS ORDERED: Cyclobenzaprine 10 MG Tab PO PRN (13:24)
[2022-10-15] MEDS ORDERED: hydrOXYzine HCL 100 MG/2 ML SDV IM PRN (13:30)
[2022-10-15] MEDS ORDERED: Labetalol 20 MG/4 ML Syringe IVPUSH PRN (13:30)
[2022-10-15] MEDS ORDERED: Acetaminophen 500 MG Tab PO PRN (13:30)
[2022-10-15] MEDS ORDERED: Metoclopramide 10 MG/2 ML SDV IVPUSH PRN (13:30)
[2022-10-15] MEDS: Acetaminophen 500 MG Tab PO SCH ×2 (14:19→21:27)
[2022-10-15] MEDS: diphenhydrAMINE 50 MG/ML SDV IVPUSH PRN ×2 (15:39→21:26)
[2022-10-15] MEDS: MVI, Adult with Vitamin K 10 ML, Thiamine 200 MG, Zinc/Copper/Manganese/Selenium 1 ML i... IV SCH ×4 (15:39)
[2022-10-15] MEDS: cefOXitin 2 GM in Sodium Chloride 0.9% 50 ML IV SCH ×2 (15:40→21:26)
[2022-10-15] MEDS ORDERED: Pantoprazole 40 MG Vial IVPUSH SCH (16:00)
[2022-10-15] MEDS ORDERED: Sodium Ferric Gluconate Cmplex 250 MG in Sodium Chloride 0.9% 100 ML IV SCH (16:00)
[2022-10-15] MEDS: Lubiprostone 24 MCG Cap PO SCH (20:06)
[2022-10-15] MEDS: Bisacodyl 5 MG Tab PO SCH (20:07)
[2022-10-15] MEDS: Docusate Sodium 100 MG Cap PO SCH (20:07)
[2022-10-16] MEDS: HYDROmorphone/Normal Saline 6 MG/30 ML PCA Vial IV PRN ×2 (00:59→14:54)
[2022-10-16] MEDS: Dextrose 5%-Lactated Ringers 1,000 ML IV SCH ×2 (03:28→10:05)
[2022-10-16] MEDS: cefOXitin 2 GM in Sodium Chloride 0.9% 50 ML IV SCH ×4 (03:36→21:39)
[2022-10-16] MEDS ORDERED: Iopamidol 612 MG/ML 50 ML SDV PO ONE (04:03)
[2022-10-16 04:48] LABS: BASOPHILS PERCENT AUTO 0.2 % (0.1-1.3); EOSINOPHILS PERCENT AUTO 0.1 % (0.0-5.4); HEMATOCRIT 33.7 % (34.3-46.0); IMMATURE GRAN ABSOLUTE AUTO 0.05 K/uL (0.00-0.23); IMMATURE GRAN PERCENT AUTO 0.4 % (0.0-0.7); LYMPHOCYTES ABSOLUTE AUTO 1.19 K/uL (0.8-3.3); LYMPHOCYTES PERCENT AUTO 10.2 % (11.4-47.7); MEAN CORPUSCULAR HEMOGLOBIN 26.6 pg (31.6-35.5); MEAN CORPUSCULAR HGB CONC 32.6 g/dL (31.6-35.5); MEAN CORPUSCULAR VOLUME 81.4 fL (81.4-99.0); MONOCYTES ABSOLUTE AUTO 0.64 K/uL (0.20-0.90); MONOCYTES PERCENT AUTO 5.5 % (3.3-12.6); NEUTROPHILS PERCENT AUTO 83.6 % (40.0-78.1); PLATELET COUNT,PLT 271 K/uL (130-375); RED BLOOD CELL COUNT 4.14 M/uL (3.77-5.24); WHITE BLOOD CELL COUNT,WBC 11.6 K/uL (3.2-11.0)
[2022-10-16 05:17] LABS: A/G RATIO 0.9 (1.2-2.2); ALANINE AMINOTRANSFERASE,ALT 37 U/L (12-78); ALBUMIN 2.6 g/dL (3.4-5.0); ALKALINE PHOSPHATASE 165 U/L (46-116); ANION GAP 6.7 mmol/L (5.0-14.0); ASPARTATE AMNIOTRANSFERASE,AST 18 U/L (15-37); BILIRUBIN TOTAL 0.2 mg/dL (0.2-1.0); BLOOD UREA NITROGEN,BUN 7 mg/dL (7-18); CARBON DIOXIDE,CO2 28 mmol/L (21-32); CHLORIDE,CL 107 mmol/L (100-108); CREATININE 0.8 mg/dL (0.6-1.0); EST CRCL DRUG DOSING (CG) 77.23 mL/min; ESTIMATED GFR 90 mL/min (>60); GLUCOSE RANDOM 170 mg/dL (74-106); MAGNESIUM 1.7 mg/dL (1.8-2.4); PHOSPHORUS 3.6 mg/dL (2.5-4.9); POTASSIUM,K 3.9 mmol/L (3.6-5.2); PRO B-TYPE NATRIUR PEPT,BNPPRO 84 pg/mL (5-125); PROTEIN TOTAL,TP 5.4 g/dL (6.4-8.2); SODIUM,NA 142 mmol/L (140-148)
[2022-10-16 05:22] LABS: BASOPHILS ABSOLUTE AUTO 0.02 K/uL (0.00-0.10); EOSINOPHILS ABSOLUTE AUTO 0.01 K/uL (0.00-0.40)
[2022-10-16] MEDS: Acetaminophen 500 MG Tab PO SCH ×4 (06:07→21:38)
[2022-10-16] MEDS: diphenhydrAMINE 50 MG/ML SDV IVPUSH PRN ×2 (07:47→20:08)
[2022-10-16] MEDS: ARIPiprazole 10 MG Tab PO SCH (09:09)
[2022-10-16] MEDS: Docusate Sodium 100 MG Cap PO SCH ×2 (09:09→20:09)
[2022-10-16] MEDS: DULoxetine 30 MG Cap PO SCH (09:10)
[2022-10-16] MEDS: SCOPOLAMINE PATCH CHECK TOP SCH (09:10)
[2022-10-16] MEDS: Celecoxib 200 MG Cap PO SCH ×2 (09:10→20:09)
[2022-10-16] MEDS: Bisacodyl 5 MG Tab PO SCH ×2 (09:10→20:08)
[2022-10-16] MEDS: Lubiprostone 24 MCG Cap PO SCH ×2 (10:04→20:09)
[2022-10-16] MEDS ORDERED: Sodium Ferric Gluconate Cmplex 250 MG in Sodium Chloride 0.9% 100 ML IV SCH (12:00)
[2022-10-16] MEDS: Pantoprazole 40 MG Tab.CR PO SCH (15:57)
[2022-10-16] MEDS: MVI, Adult with Vitamin K 10 ML, Thiamine 200 MG, Zinc/Copper/Manganese/Selenium 1 ML i... IV SCH ×4 (15:57)
[2022-10-17] MEDS: Dextrose 5%-Lactated Ringers 1,000 ML IV SCH ×2 (03:09→13:14)
[2022-10-17] MEDS: Acetaminophen 500 MG Tab PO SCH ×3 (05:46→21:34)
[2022-10-17] MEDS: diphenhydrAMINE 50 MG/ML SDV IVPUSH PRN ×3 (08:09→23:56)
[2022-10-17] MEDS: Bisacodyl 5 MG Tab PO SCH ×2 (08:09→21:36)
[2022-10-17] MEDS: SCOPOLAMINE PATCH CHECK TOP SCH (08:10)
[2022-10-17] MEDS: Lubiprostone 24 MCG Cap PO SCH ×2 (08:10→21:35)
[2022-10-17] MEDS: ARIPiprazole 10 MG Tab PO SCH (08:10)
[2022-10-17] MEDS: DULoxetine 30 MG Cap PO SCH (08:10)
[2022-10-17] MEDS: Docusate Sodium 100 MG Cap PO SCH ×2 (08:10→21:35)
[2022-10-17] MEDS: Celecoxib 200 MG Cap PO SCH ×2 (08:15→21:35)
[2022-10-17] MEDS ORDERED: Cyanocobalamin (Vitamin B12) 1,000 MCG/ML SDV IM ONE (09:00)
[2022-10-17] MEDS: oxyCODONE 5 MG Tab PO PRN ×4 (09:35→23:51)
[2022-10-17] MEDS: Pantoprazole 40 MG Tab.CR PO SCH (15:42)
[2022-10-18 05:41] VITALS: BP 108/70; PULSE 78
[2022-10-18] MEDS: Acetaminophen 500 MG Tab PO SCH (05:41)
[2022-10-18] MEDS: oxyCODONE 5 MG Tab PO PRN ×2 (05:41→11:34)
[2022-10-18] MEDS: diphenhydrAMINE 50 MG/ML SDV IVPUSH PRN ×2 (05:50→12:50)
[2022-10-18] MEDS: Docusate Sodium 100 MG Cap PO SCH (08:25)
[2022-10-18] MEDS: Bisacodyl 5 MG Tab PO SCH (08:25)
[2022-10-18] MEDS: ARIPiprazole 10 MG Tab PO SCH (08:25)
[2022-10-18] MEDS: DULoxetine 30 MG Cap PO SCH (08:25)
[2022-10-18] MEDS: Celecoxib 200 MG Cap PO SCH (08:25)
[2022-10-18] MEDS: Lubiprostone 24 MCG Cap PO SCH (08:26)
[2022-10-18] MEDS ORDERED: Sodium Ferric Gluconate Cmplex 250 MG in Sodium Chloride 0.9% 100 ML IV ONE (09:00)
== END 2022-10-18 13:21 | disposition home or self-care (01) | DRG 327 ==
LOC: JP.SDS 07:37 → JP.MS 11:55
PROVIDERS: ADMIT Surgery; ATTEND Surgery
PROC: 0DT80ZZ Resection of Small Intestine, Open Approach (ICD-10-PCS; principal; 2022-10-15)
PROC: 0WUF0JZ Supplement Abdominal Wall with Synthetic Substitute, Open Approach (ICD-10-PCS; principal; 2022-10-15)
PROC: 0D160ZA Bypass Stomach to Jejunum, Open Approach (ICD-10-PCS; principal; 2022-10-15)
PROC: 0DQ80ZZ Repair Small Intestine, Open Approach (ICD-10-PCS; principal; 2022-10-15)
DX: K95.89 Other complications of other bariatric procedure (principal); K43.0 Incisional hernia with obstruction, without gangrene; K91.2 Postsurgical malabsorption, not elsewhere classified; K56.51 Intestinal adhesions [bands], with partial obstruction; F32.A Depression, unspecified; E78.5 Hyperlipidemia, unspecified; E66.9 Obesity, unspecified; E53.8 Deficiency of other specified B group vitamins; E55.9 Vitamin D deficiency, unspecified; D64.9 Anemia, unspecified; E60 Dietary zinc deficiency; E50.9 Vitamin A deficiency, unspecified; Z98.890 Other specified postprocedural states; Z90.710 Acquired absence of both cervix and uterus; Z90.79 Acquired absence of other genital organ(s); Z98.84 Bariatric surgery status; Z68.33 Body mass index [BMI] 33.0-33.9, adult; Z79.899 Other long term (current) drug therapy; Z79.891 Long term (current) use of opiate analgesic
CPT/HCPCS: 36415; 71045; 71045-26; 74240; 74240-26; 80053; 82947; 83036; 83735; 83880; 84100; 85025; 88302; 88307; 93005; A9270-GY; C1751; C9113; J0171; J0330; J0694; J1100; J1170; J1200; J1642; J2020; J2185; J2405; J2704; J2710; J2795; J2916; J3010; J3411; J3420; J3490; J7120; J7121; Q9967

== ENCOUNTER 2022-10-27 19:13 | Emergency (ER) | payer OTHER ==
[2022-10-27 20:01] VITALS: BP 117/70; PULSE 76
== END 2022-10-27 20:45 | disposition home or self-care (01) ==
LOC: JP.ED 19:13
DX: T81.41XA Infection following a procedure, superficial incisional surgical site, initial encounter (principal); E66.9 Obesity, unspecified; K21.9 Gastro-esophageal reflux disease without esophagitis; Z79.899 Other long term (current) drug therapy; Z91.09 Other allergy status, other than to drugs and biological substances; Z88.8 Allergy status to other drugs, medicaments and biological substances; Z86.16 Personal history of COVID-19; Z68.33 Body mass index [BMI] 33.0-33.9, adult
CPT/HCPCS: 99283

== ENCOUNTER 2023-03-14 22:44 | Emergency (ER) | payer OTHER ==
[2023-03-14 22:58] VITALS: BP 101/64; PULSE 96
== END 2023-03-14 23:21 | disposition home or self-care (01) ==
LOC: JP.ED 22:44
DX: U07.1 COVID-19 (principal); Z90.710 Acquired absence of both cervix and uterus; Z88.1 Allergy status to other antibiotic agents; Z91.09 Other allergy status, other than to drugs and biological substances
CPT/HCPCS: 99283

== ENCOUNTER 2023-06-18 19:49 | Emergency (ER) | payer OTHER ==
[2023-06-18 21:14] VITALS: BP 140/93; PULSE 99
== END 2023-06-18 23:23 | disposition home or self-care (01) ==
LOC: JP.ED 19:49
DX: M54.9 Dorsalgia, unspecified (principal); E66.9 Obesity, unspecified; Z88.8 Allergy status to other drugs, medicaments and biological substances; Z91.048 Other nonmedicinal substance allergy status; Z79.899 Other long term (current) drug therapy; Z86.16 Personal history of COVID-19; Z90.49 Acquired absence of other specified parts of digestive tract; Z90.710 Acquired absence of both cervix and uterus; Z68.34 Body mass index [BMI] 34.0-34.9, adult
CPT/HCPCS: 99283

== ENCOUNTER 2023-10-26 14:22 | Emergency (ER) | payer SELFPAY ==
[2023-10-26 15:33] LABS: BASOPHILS ABSOLUTE AUTO 0.03 K/uL (0.00-0.10); BASOPHILS PERCENT AUTO 0.4 % (0.1-1.3); EOSINOPHILS PERCENT AUTO 3.8 % (0.0-5.4); HEMATOCRIT 36.5 % (34.3-46.0); HEMOGLOBIN 12.5 g/dL (11.2-15.5); IMMATURE GRAN PERCENT AUTO 0.3 % (0.0-0.7); LYMPHOCYTES ABSOLUTE AUTO 2.36 K/uL (0.8-3.3); LYMPHOCYTES PERCENT AUTO 29.9 % (11.4-47.7); MEAN CORPUSCULAR HEMOGLOBIN 26.8 pg (31.6-35.5); MEAN CORPUSCULAR HGB CONC 34.2 g/dL (31.6-35.5); MEAN CORPUSCULAR VOLUME 78.3 fL (81.4-99.0); MONOCYTES ABSOLUTE AUTO 0.42 K/uL (0.20-0.90); MONOCYTES PERCENT AUTO 5.3 % (3.3-12.6); NEUTROPHILS ABSOLUTE AUTO 4.77 K/uL (1.0-7.6); NEUTROPHILS PERCENT AUTO 60.3 % (40.0-78.1); PLATELET COUNT,PLT 370 K/uL (130-375); RED BLOOD CELL COUNT 4.66 M/uL (3.77-5.24); WHITE BLOOD CELL COUNT,WBC 7.9 K/uL (3.2-11.0)
[2023-10-26 15:34] LABS: IMMATURE GRAN ABSOLUTE AUTO 0.02 K/uL (0.00-0.23)
[2023-10-26] MEDS: Ondansetron 4 MG/2 ML SDV IVPUSH ONE (15:37)
[2023-10-26] MEDS: Sodium Chloride 0.9% 1,000 ML IV SCH (15:37)
[2023-10-26 15:54] LABS: A/G RATIO 1.1 (1.2-2.2); ALANINE AMINOTRANSFERASE,ALT 65 U/L (12-78); ALBUMIN 3.9 g/dL (3.4-5.0); ALKALINE PHOSPHATASE 193 U/L (46-116); ANION GAP 12.9 mmol/L (5.0-14.0); ASPARTATE AMNIOTRANSFERASE,AST 31 U/L (15-37); BILIRUBIN TOTAL 0.2 mg/dL (0.2-1.0); BLOOD UREA NITROGEN,BUN 9 mg/dL (7-18); CALCIUM 8.7 mg/dL (8.5-10.1); CARBON DIOXIDE,CO2 21 mmol/L (21-32); CHLORIDE,CL 107 mmol/L (100-108); CREATININE 1.1 mg/dL (0.6-1.0); EST CRCL DRUG DOSING (CG) 54.45 mL/min; ESTIMATED GFR 61 mL/min (>60); GLUCOSE RANDOM 114 mg/dL (74-106); PROTEIN TOTAL,TP 7.3 g/dL (6.4-8.2); SODIUM,NA 141 mmol/L (140-148)
[2023-10-26] MEDS: Morphine 2 MG/ML SYRINGE IVPUSH ONE ×2 (16:22→18:34)
[2023-10-26 16:38] LABS: APPEARANCE,URINE CLEAR (CLEAR); BILIRUBIN,URINE NEGATIVE (NEGATIVE); COLOR,URINE YELLOW (YELLOW); GLUCOSE,URINE NEGATIVE (NEGATIVE); KETONES,URINE NEGATIVE (NEGATIVE); LEUKOCYTE ESTERASE,URINE NEGATIVE (NEGATIVE); NITRITE,URINE NEGATIVE (NEGATIVE); OCCULT BLOOD,URINE TRACE-INTACT (NEGATIVE); PH,URINE 5.5 (5.0-8.0); PROTEIN,URINE NEGATIVE (NEGATIVE); UROBILINOGEN,URINE 0.2 EU/dL (0.2-1.0)
[2023-10-26 16:44] LABS: AMORPHOUS SEDIMENT,URINE NOT SEEN; BACTERIA,URINE NOT SEEN; EPITHELIAL CELLS,URINE NOT SEEN; MUCUS,URINE NOT SEEN; RBC,URINE 0-5 (0-5); WBC,URINE NOT SEEN (0-5)
[2023-10-26] MEDS: Sodium Chloride 0.9% 80 ML IV SCH (17:45)
[2023-10-26] MEDS: Iopamidol 612 MG/ML 100 ML Bottle IV SCH (17:45)
[2023-10-26 18:36] VITALS: BP 107/62; PULSE 88
== END 2023-10-26 19:02 | disposition home or self-care (01) ==
LOC: JP.ED 14:22
DX: K42.9 Umbilical hernia without obstruction or gangrene (principal); Z86.16 Personal history of COVID-19; Z90.49 Acquired absence of other specified parts of digestive tract; Z90.710 Acquired absence of both cervix and uterus; Z87.891 Personal history of nicotine dependence; Z79.899 Other long term (current) drug therapy; Z91.09 Other allergy status, other than to drugs and biological substances; Z88.8 Allergy status to other drugs, medicaments and biological substances
CPT/HCPCS: 36415; 74177; 80053; 81001; 83605; 85025; 96361; 96374; 96375; 96376; 99284; J2270; J2405; J3490; J7030; Q9967

== ENCOUNTER 2024-01-20 19:05 | Emergency (ER) | payer BC ==
[2024-01-20 20:31] VITALS: BP 91/67; PULSE 94
== END 2024-01-20 21:07 | disposition home or self-care (01) ==
LOC: JP.ED 19:05
DX: Z48.01 Encounter for change or removal of surgical wound dressing (principal); Z86.16 Personal history of COVID-19; Z90.49 Acquired absence of other specified parts of digestive tract; Z90.710 Acquired absence of both cervix and uterus; Z79.899 Other long term (current) drug therapy; Z88.8 Allergy status to other drugs, medicaments and biological substances; Z91.048 Other nonmedicinal substance allergy status
CPT/HCPCS: 99282